=== PATIENT | female | born 1955 | race Caucasian/White ===

== ENCOUNTER 2016-09-18 17:12 | Observation (INO) ==
[2016-09-18] MEDS ORDERED: CefTRIAXone 1,000 MG in D5% in Water (Mini-Bag+) 100 ML IVPB ONE (17:21)
[2016-09-18] MEDS ORDERED: Azithromycin 500 MG in D5% in Water 250 ML IVPB ONE (17:21)
--- NOTE | 2016-09-18 17:29 | Emergency Department Note ---
Disposition Clinical Impression: Influenza Disposition: Admitted As Inpatient Condition: Fair Referrals: Alfred Cohen MD [Primary Care Provider] - Forms: ED Satisfaction Letter Time of Disposition: 17:46 (deepak obsv) Fever HPI - General Chief Complaint: ED Fever Stated Complaint: fever/cough Time Seen by Provider: 09/18/16 17:14 Source: patient Mode of arrival: wheelchair Limitations: no limitations Nursing Notes Reviewed: Yes Vital Signs Reviewed: Yes - History of Present Illness HPI Narrative: Pt sent up from Dr Yandy Cohen office after recieveing rocepin solumedrol and aerosol. Pt had a feer of 105 in the office cam down to 102 on its own states 4 -5 day history of fever chills cough congestion runny nose shortness of breath worse than usual denies of diarrhea melena hematochezia or hematemesis number stating with this recent weight gain or weight loss Pt Subjective Complaint: fever Onset (ago): day(s) (4-5) Maximum Temperature Reported: 105 F Time temperature last taken: 16:00 (at the Doctor office) Temperature Source: oral Context: sick contacts Associated symptoms: Reports: chills, myalgias, headache, nasal congestion, sore throat, cough, dyspnea. Denies: rigors, rhinorrhea, stiff neck, chest pain , abdominal pain, nausea, vomiting, diarrhea, dysuria, altered mental status, night sweats, weight loss Improves with: nothing Worsens with: nothing Treatments prior to arrival fever: antibiotics, other healthcare encounter for this problem - Related Data Home Medications Medication Instructions Recorded Confirmed Albuterol Sulfate [Proventil Hfa] 6.7 gm IH Q4-6H PRN 03/10/15 06/25/16 Alprazolam [Xanax] 1 mg PO QID 03/10/15 06/25/16 OxyCODONE/APAP 10/325 [Percocet 1 each PO Q6HR 03/10/15 06/25/16 10/325] Oxygen 1 each .ROUTE AD 03/10/15 06/25/16 Previous Rx's Medication Instructions Recorded Albuterol Neb [AccuNeb] 1.25 mg IH Q4H #40 inhsol 06/07/16 Albuterol Sulfate [Albuterol 1 - 2 puff IH Q4HR #1 hfa.aer.ad 06/07/16 Inhaler] Aspirin 325 mg PO DAILY #15 tablet 06/07/16 Omeprazole [PriLOSEC] 40 mg PO DAILY #15 cap 06/07/16 Lactobacillus [Culturelle] 1 each PO BID #6 cap.sprink 06/27/16 Levofloxacin [Levaquin] 500 mg PO DAILY #3 tablet 06/27/16 PredniSONE 10 mg PO BIDWM #6 tablet 06/27/16 Allergies Allergy/AdvReac Type Severity Reaction Status Date / Time No Known Allergies Allergy Verified 03/10/15 10:29 All systems ED: reviewed and negative except as stated. Constitutional: Reports: fever, weakness. Denies: chills, weight change Eyes: Denies: vision change ENT ED: Reports: ear pain, throat pain, congestion Cardiovascular: Denies: chest pain, palpitations Respiratory: Reports: cough, dyspnea, wheezes, sputum production Gastrointestinal: Denies: abdominal pain, nausea, vomiting Genitourinary: Denies: urgency, dysuria, frequency Musculoskeletal: Denies: back pain, neck pain Integumentary: Denies: abrasion Neurological: Denies: headache Psychiatric: Denies: anxiety Endocrine: Reports: fatigue Hematological/Lymphatic: Denies: easy bleeding Allergic/Immunologic: Denies: facial swelling Fever PMH - Past Medical History Medical history: Reports: asthma, CHF, COPD, GERD Surgical history: Reports: cancer surgery, hysterectomy Psychiatric history: Reports: anxiety, depression [employer] history: Reports: no [employer] history - Social History Smoking Status: Current every day smoker Alcohol use: Reports: none Drug use: Reports: none Physical Exam - General Limitations: no limitations General appearance: alert, in no apparent distress, anxious - Head Head exam: atraumatic, normocephalic, normal inspection - Eye Eye exam: Present: normal appearance, PERRL, EOMI - ENT ENT exam: normal exam, normal oropharynx, mucous membranes moist, TM's normal bilaterally, normal external ear exam - Neck Neck exam: Present: normal inspection, full ROM, trachea midline - Chest Chest inspection: Present: normal inspection, symmetric chest wall rise - Respiratory Respiratory exam: Present: wheezes, prolonged expiratory phase - Cardiovascular Cardiovascular exam: Present: regular rate, normal rhythm, normal heart sounds - Abdominal Exam Abdominal exam: Present: soft, Non-Tender, normal bowel sounds - Expanded Upper Extremity Exam Shoulder exam: Present: normal inspection, full ROM Arm exam: Present: normal inspection, full ROM Elbow exam: Present: normal inspection, full ROM Forearm/Wrist exam: Present: normal inspection, full ROM Hand exam: Present: normal inspection, full ROM Vascular exam: Normal: capillary refill, radial pulse - Expanded Lower Extremity Exam Hip/Pelvis exam: Present: normal inspection, full ROM Upper leg exam: Present: normal inspection, full ROM Knee exam: Present: normal inspection, full ROM Lower leg exam: Present: normal inspection, full ROM Ankle exam: Present: normal inspection, full ROM Foot/toe exam: Present: normal inspection, full ROM Neurovascular/Tendon exam: Present: normal capillary refill, normal fine/light touch. Absent: motor deficit, sensory deficit, tendon deficit - Back Exam Back exam: Present: normal inspection, full ROM. Absent: muscle spasm - Neurological Exam Neurological exam: Present: alert, oriented X3, CN II-XII intact - Psychiatric Psychiatric exam: Present: normal affect, normal mood - Skin Skin exam: Present: warm, dry, intact, normal color Course Course Narrative: Patient was seen and examined patient had an IV established was given antibiotics has a positive flu swab started on Tamiflu anticipated admission due to the fever of 105 history of COPD Vital Signs Temperature 101.8 F H 09/18/16 17:14 Pulse Rate 133 09/18/16 17:14 Respiratory Rate 18 09/18/16 17:14 Blood Pressure 106/65 09/18/16 17:14 O2 Sat by Pulse Oximetry 83 L 09/18/16 17:14 Temperature 101.8 F H 09/18/16 17:17 Pulse Rate 128 09/18/16 17:37 Respiratory Rate 19 09/18/16 17:37 Blood Pressure 94/57 09/18/16 17:37 O2 Sat by Pulse Oximetry 90 L 09/18/16 17:37 Oxygen Delivery Oxygen Delivery Nasal Cannula Fever - Differential Diagnosis Likely: fever of occult origin, community acquired pneumonia, influenza - Medical Records Medical records reviewed: Yes I reviewed the patient's medical records. - Lab Data Lab results reviewed: Yes I reviewed the patient's lab results. Result diagrams: 09/18/16 17:30 09/18/16 17:30 Lab Results 09/18/16 09/18/16 09/18/16 Range/Units 17:30 17:30 17:30 WBC 9.2 (4.3-11.1) K/mcL RBC 4.30 (3.82-4.97) M/mcL Hgb 13.6 (11.5-15.4) g/dL Hct 40.6 (35.3-44.9) % MCV 94.4 (83.0-100.0) fL MCH 31.6 (28.0-33.3) pg MCHC 33.5 (31.6-35.5) g/dL RDW 13.8 (11.5-14.5) % Plt Count 130 L (140-400) K/mcL MPV 10.4 (9.4-12.4) fL Immature Gran % 0.3 (0-4) % Seg Neutrophils % 68.3 % Lymphocytes % 18.1 % Monocytes % 12.0 % Eosinophils % 1.0 % Basophils % 0.3 % Neutrophils # 6.3 (1.6-8.9) K/mcL Lymphocytes # 1.7 (0.6-4.6) K/mcL Monocytes # 1.1 (0.0-1.3) K/mcL Eosinophils # 0.1 (0.0-0.6) K/mcL Basophils # 0.0 (0.0-0.2) K/mcL PT (9.4-12.1) Seconds INR APTT 44.1 H (26.0-36.0) Seconds Sodium 133 L (136-145) mEq/L Potassium 3.9 (3.5-4.5) mEq/L Chloride 95 L (98-109) mEq/L Carbon Dioxide 26 (19-29) mEq/L BUN 10 (7-20) mg/dL Creatinine 0.99 (0.57-1.11) mg/dL Est GFR ( Amer) > 60 (> 60) Est GFR (Non-Af Amer) 57 L (> 60) BUN/Creatinine Ratio 10 (6-26) Glucose 121 H (70-99) mg/dL Calculated Osmolality 276 L (280-300) Calcium 8.8 (8.6-10.8) mg/dL 09/18/16 Range/Units 17:30 WBC (4.3-11.1) K/mcL RBC (3.82-4.97) M/mcL Hgb (11.5-15.4) g/dL Hct (35.3-44.9) % MCV (83.0-100.0) fL MCH (28.0-33.3) pg MCHC (31.6-35.5) g/dL RDW (11.5-14.5) % Plt Count (140-400) K/mcL MPV (9.4-12.4) fL Immature Gran % (0-4) % Seg Neutrophils % % Lymphocytes % % Monocytes % % Eosinophils % % Basophils % % Neutrophils # (1.6-8.9) K/mcL Lymphocytes # (0.6-4.6) K/mcL Monocytes # (0.0-1.3) K/mcL Eosinophils # (0.0-0.6) K/mcL Basophils # (0.0-0.2) K/mcL PT 14.6 H (9.4-12.1) Seconds INR 1.3 APTT (26.0-36.0) Seconds Sodium (136-145) mEq/L Potassium (3.5-4.5) mEq/L Chloride (98-109) mEq/L Carbon Dioxide (19-29) mEq/L BUN (7-20) mg/dL Creatinine (0.57-1.11) mg/dL Est GFR ( Amer) (> 60) Est GFR (Non-Af Amer) (> 60) BUN/Creatinine Ratio (6-26) Glucose (70-99) mg/dL Calculated Osmolality (280-300) Calcium (8.6-10.8) mg/dL - Radiology Data Radiology results reviewed: Yes I reviewed the patient's radiology results. ITS Impressions Chest X-Ray 09/18/16 17:20 IMPRESSION: No acute cardiopulmonary abnormality. D/ / Regis Kasper MD / Regis Kasper MD Interpreting Provider: Regis Kasper MD Critical Care Time Critical Care Time: Yes Total Critical Care Time: 35 Attestation: Critical care performed: 35 minutes's report of the fever 105 of having left from the family physician's office presenting here with a fever of 102.9 patient 's sats were 80% when she first arrived here to the emergency room did respond very well to 2 L nasal cannula increasing her sats to 90% patient still remains slightly tachycardic at 123 blood pressure initially was 120/70-96/60 then went back up to 105/64 patient did receive fluid boluses in the event that she would be showing early signs of sepsis the patient will be admitted to rule out possibility of sepsis secondary to influenza A patient is agreeable Time is exclusive of separately billable procedures. Time includes: direct patient care, patient reassessment, coordination of patient care, interpretation of data (laboratory data, radiology data, and respiratory data), review of patient's medical records, medical consultation and documentation of patient care. Procedures included in critical care time: Procedures excluded from critical care time:
[2016-09-18] MEDS ORDERED: 0.9 % Sodium Chloride 1,000 ML IVC SCH ×2 (17:30→18:58)
[2016-09-18] MEDS ORDERED: 0.9 % Sodium Chloride 250 ML IVC ONE ×2 (17:36→18:58)
[2016-09-18 17:39] LABS: Basophils % 0.3 %; Eosinophils # 0.1 K/mcL (0.0-0.6); Hematocrit 40.6 % (35.3-44.9); Hemoglobin 13.6 g/dL (11.5-15.4); Immature Granulocytes % 0.3 % (0-4); Lymphocytes # 1.7 K/mcL (0.6-4.6); Lymphocytes % 18.1 %; Mean Corpuscular HGB Conc 33.5 g/dL (31.6-35.5); Mean Corpuscular Hemoglobin 31.6 pg (28.0-33.3); Mean Corpuscular Volume 94.4 fL (83.0-100.0); Mean Platelet Volume 10.4 fL (9.4-12.4); Monocytes # 1.1 K/mcL (0.0-1.3); Neutrophils # 6.3 K/mcL (1.6-8.9); Platelet Count 130 K/mcL (140-400); Red Cell Distribution Width 13.8 % (11.5-14.5); Segmented Neutrophils % 68.3 %
[2016-09-18 17:46] LABS: INR 1.3; Prothrombin Time 14.6 Seconds (9.4-12.1)
[2016-09-18] MEDS: 0.9 % Sodium Chloride 1,000 ML IVC SCH ×4 (17:47→22:22)
[2016-09-18 17:56] LABS: BUN/Creatinine Ratio 10 (6-26); Blood Urea Nitrogen 10 mg/dL (7-20); Calcium 8.8 mg/dL (8.6-10.8); Carbon Dioxide 26 mEq/L (19-29); Chloride 95 mEq/L (98-109); Glucose 121 mg/dL (70-99); Osmolality,Calculated 276 (280-300); Potassium 3.9 mEq/L (3.5-4.5); Sodium 133 mEq/L (136-145); eGFR For African Americans > 60 (> 60); eGFR For Non-African Americans 57 (> 60)
[2016-09-18] MEDS ORDERED: Acetaminophen 325 MG TABLET PO PRN (18:58)
[2016-09-18] MEDS ORDERED: Ondansetron 4 MG/2 ML VIAL IVP PRN (18:58)
[2016-09-18] MEDS ORDERED: Naloxone 0.4 MG/ML INJ IVP PRN (18:58)
[2016-09-18] MEDS ORDERED: Ibuprofen 400 MG TABLET PO PRN (18:58)
[2016-09-18] MEDS ORDERED: NON-FORMULARY MEDICATION 1 EACH EACH (Oxygen [Oxygen] 1 EACH) SCH (18:58)
[2016-09-18] MEDS: Albuterol 2.5 MG/3 ML NEBULIZER IH SCH ×3 (20:35→23:38)
[2016-09-18] MEDS ORDERED: 0.9 % Sodium Chloride 500 ML IV ONE (21:00)
[2016-09-18] MEDS: Lactobacillus 1 EACH CAP.SPRINK PO SCH (22:24)
[2016-09-19] MEDS: Albuterol 2.5 MG/3 ML NEBULIZER IH SCH (03:59)
[2016-09-19] MEDS: *HR* OxyCODONE/APAP 10/325 TABLET PO SCH ×2 (05:05→08:22)
[2016-09-19 05:23] LABS: Hematocrit 42.1 % (35.3-44.9); Hemoglobin 13.7 g/dL (11.5-15.4); Immature Granulocytes % 0.5 % (0-4); Lymphocytes # 0.8 K/mcL (0.6-4.6); Lymphocytes % 19.8 %; Mean Corpuscular HGB Conc 32.5 g/dL (31.6-35.5); Mean Corpuscular Hemoglobin 31.1 pg (28.0-33.3); Mean Corpuscular Volume 95.7 fL (83.0-100.0); Mean Platelet Volume 10.6 fL (9.4-12.4); Monocytes # 0.1 K/mcL (0.0-1.3); Monocytes % 3.1 %; Platelet Count 122 K/mcL (140-400); Red Cell Distribution Width 13.5 % (11.5-14.5); Segmented Neutrophils % 76.6 %
[2016-09-19 05:29] LABS: Neutrophils # 3.1 K/mcL (1.6-8.9)
[2016-09-19 05:35] LABS: INR 1.3; Prothrombin Time 13.8 Seconds (9.4-12.1)
[2016-09-19 05:37] LABS: Activated Partial Thrombo Time 44.2 Seconds (26.0-36.0)
[2016-09-19 05:47] LABS: BUN/Creatinine Ratio 12 (6-26); Blood Urea Nitrogen 11 mg/dL (7-20); Calcium 8.8 mg/dL (8.6-10.8); Carbon Dioxide 25 mEq/L (19-29); Chloride 104 mEq/L (98-109); Glucose 197 mg/dL (70-99); Magnesium 1.8 mg/dL (1.6-2.6); Osmolality,Calculated 297 (280-300); Phosphorous 4.1 mg/dL (2.3-4.7); Potassium 4.7 mEq/L (3.5-4.5); Sodium 141 mEq/L (136-145); eGFR For African Americans > 60 (> 60); eGFR For Non-African Americans > 60 (> 60)
[2016-09-19 07:58] VITALS: BP 118/70
[2016-09-19] MEDS ORDERED: PredniSONE 10 MG TABLET PO SCH (08:00)
[2016-09-19] MEDS: Lactobacillus 1 EACH CAP.SPRINK PO SCH (08:21)
[2016-09-19] MEDS: 0.9 % Sodium Chloride 1,000 ML IVC SCH ×2 (08:29→08:51)
[2016-09-19] MEDS ORDERED: Aspirin 325 MG TABLET PO SCH (09:00)
[2016-09-19] MEDS ORDERED: CefTRIAXone 1,000 MG in D5% in Water (Mini-Bag+) 100 ML IVPB SCH (09:00)
--- NOTE | 2016-09-19 09:45 | Internal Med History&Physical ---
Date of Encounter: 09/19/16 Time of Encounter: 09:20 Assessment and Plan (1) Influenza Current visit: Yes Status: Acute She has been started on Tamiflu. She states she feels improved now and actually wishes to be discharged home. Internal Medicine - H&P: HPI Chief complaint: Fever and cough Admitted From: Home Plans for Post Hospital Care: Home History of present illness: Ms. Newell is a 61 year old female who came to the emergency room from her PCP office after presenting with fever. She had been having cough with myalgias , arthralgias and fatigue over the past 2 days. She was evaluated and emergency room and found to have influenza A on nasal pharyngeal swab. She was admitted to [facility] for observation and initiation of Tamiflu. She states she feels significantly improved now and essentially back to her baseline and wishes to be discharged home. Her respiratory history is significant for having smoked since age 16 up to 2 packs per day. She had PFTs at [facility] approximately 2007 and was told she had COPD. She wears oxygen at bedtime and when necessary during the daytime. She has not had workup for DUARTE. Past Med Surg Social Fam HX - Past Medical History Medical history: asthma, CHF, COPD, GERD Psychiatric history: anxiety, depression - Past Surgical History Surgical History: cancer surgery, hysterectomy - Social History Smoking Status: Current every day smoker Smokeless Tobacco Status: No Alcohol use: none Drug use: none - Family History Daughter Adopted: No Family Member Ethnicity: Non- Living Status: Still Living Hx Family Cardiac Disorders: No Hx Family Respiratory Disorders: Yes (asthma) Hx Family Cancer: No Hx Family GI Disorders: No Hx Family Endocrine Disorder: No Hx Family Neuromuscular Disorders: No Hx Family Neurologic Disorders: No Hx Family HEENT Disorders: No Hx Family Autoimmune Disorders: No Internal Medicine - H&P: Meds Albuterol Sulfate [Proventil Hfa] 6.7 gm IH Q4-6H PRN 03/10/15 [History] Alprazolam [Xanax] 1 mg PO QID 03/10/15 [History] OxyCODONE/APAP 10/325 [Percocet 10/325] 1 each PO Q6HR 03/10/15 [History] Oxygen 1 each .ROUTE AD 03/10/15 [History] Albuterol Neb [AccuNeb] 1.25 mg IH Q4H #40 inhsol 06/07/16 [Rx] Albuterol Sulfate [Albuterol Inhaler] 1 - 2 puff IH Q4HR #1 hfa.aer.ad 06/07/16 [Rx] Aspirin 325 mg PO DAILY #15 tablet 06/07/16 [Rx] Omeprazole [PriLOSEC] 40 mg PO DAILY #15 cap 06/07/16 [Rx] Lactobacillus [Culturelle] 1 each PO BID #6 cap.sprink 06/27/16 [Rx] Levofloxacin [Levaquin] 500 mg PO DAILY #3 tablet 06/27/16 [Rx] PredniSONE 10 mg PO BIDWM #6 tablet 06/27/16 [Rx] Allergies No Known Allergies Allergy (Verified 03/10/15 10:29) All Systems PM: A 10-system review of systems was performed and is negative for pertinent findings except as documented above in the HPI. Review of systems: Review of systems from her June 2016 [facility] hospitalization were reviewed and revised as below. Gen.: Her weight has been decreased from 78.925 kg at the October 2015 [facility] hospitalization to 74.843 kg on admission now. Cardiovascular: She denies hypertension, [place], chest pain, DVT, or pulmonary embolus. Respiratory: As per history of present illness GI: She denies trouble with her liver gallbladder or exocrine pancreas. She had colon polyps diagnosed approximately 2011. : She has had hysterectomy. She has CKD stage 2-3. Endocrine: She has hyperlipidemia. She has DM 2 and her most recent hemoglobin A1c was 5.8% on 06/27/2016 She has had suppressed TSH in the past but that has resolved. Hematology/oncology: She had cervical cancer with curative hysterectomy approximately 1981. She denies other internal malignancies or anemia. Psychiatric: She has anxiety and depression. [place] skeletal: She has chronic low back pain and degenerative disc disease. She denies osteoporosis or significant arthritis - Constitutional Vitals: Temp Pulse Resp BP Pulse Ox 98.6 F 88 18 118/70 96 09/19/16 07:52 09/19/16 07:52 09/19/16 07:52 09/19/16 07:52 09/19/16 07:52 Exam: Gen.: She is a well-developed well-nourished female who appears in no severe distress at present time. HEENT: Head is atraumatic and normal cephalic. Eyes: EOMI. There is no scleral icterus. Mouth: Mucosa is moist. Neck: Supple and nontender. There is no thyromegaly or adenopathy noted. Heart: Regular without a 2/6 systolic murmur heard at the apex Lungs: No wheezes or crackles are heard. Abdomen: Soft and nontender. No masses or guarding are noted. Extremities: There is no cyanosis edema or clubbing noted. Dorsalis pedis and posterior tibial pulses are trace to 1+ palpable bilaterally. Her feet are warm to touch. Neurologic: Mental status: She is talkative and a good historian. Cranial nerves: Smile is symmetric. Forehead wrinkles bilaterally. Tongue protrudes midline. EOMI. Motor: There is no pronator drift. Cerebellar: Finger to nose is intact bilaterally. Skin: Warm and dry Internal Med - H&P Results - Labs CBC & Chem 7: 09/19/16 04:19 09/19/16 04:19 Labs: Short CBC 09/19/16 Range/Units 04:19 WBC 4.1 L D (4.3-11.1) K/mcL Hgb 13.7 (11.5-15.4) g/dL Hct 42.1 (35.3-44.9) % Plt Count 122 L (140-400) K/mcL Neutrophils # 3.1 (1.6-8.9) K/mcL BMP 09/19/16 04:19 Sodium 141 D Potassium 4.7 H Chloride 104 Carbon Dioxide 25 BUN 11 Creatinine 0.90 Glucose 197 H Calcium 8.8
--- NOTE | 2016-09-19 09:55 | Discharge Summary ---
Date of Encounter: 09/19/16 Time of Encounter: 09:20 - Discharge Diagnosis (1) Influenza Priority: Primary Status: Acute - Discharge Medications Prescriptions: Oseltamivir [Tamiflu] 75 mg PO BID #8 capsule Home Medications: Albuterol Sulfate [Proventil Hfa] 6.7 gm IH Q4-6H PRN 03/10/15 [History] Alprazolam [Xanax] 1 mg PO QID 03/10/15 [History] OxyCODONE/APAP 10/325 [Percocet 10/325] 1 each PO Q6HR 03/10/15 [History] Oxygen 1 each .ROUTE AD 03/10/15 [History] Albuterol Neb [AccuNeb] 1.25 mg IH Q4H #40 inhsol 06/07/16 [Rx] Albuterol Sulfate [Albuterol Inhaler] 1 - 2 puff IH Q4HR #1 hfa.aer.ad 06/07/16 [Rx] Aspirin 325 mg PO DAILY #15 tablet 06/07/16 [Rx] Omeprazole [PriLOSEC] 40 mg PO DAILY #15 cap 06/07/16 [Rx] Oseltamivir [Tamiflu] 75 mg PO BID #8 capsule 09/19/16 [Rx] Allergies/Adverse Reactions: Allergies No Known Allergies Allergy (Verified 03/10/15 10:29) Date of admission: 09/18/16 18:16 Primary care physician: Alfred Cohen MD - Patient Status Disposition: Home, Self-Care Condition: Fair Functional capacity at discharge: independent ambulation Overall status at discharge: patient is progressing back to baseline - Discharge Instructions Follow Up With: Alfred Cohen MD [Primary Care Provider] - 1 week - Diet and Activity Activity: resume usual activities as tolerated, wear oxygen at all times Diet: advance to your usual diet Hospital course: Ms. Newell is a 61 year old female who came to the emergency room from her PCP office after presenting with fever. She had been having cough with myalgias , arthralgias and fatigue over the past 2 days. She was evaluated and emergency room and found to have influenza A on nasal pharyngeal swab. She was admitted to [facility] for observation and initiation of Tamiflu. Initial orders were written by the emergency room physician. I saw her September 19 performed a history physical and discharge. She was started on Tamiflu by the emergency room physician. Chest x-ray report showed no acute cardiopulmonary abnormality. She was also ordered Rocephin and Zithromax by emergency room but I did not feel she had pneumonia so antibiotics will not be continued at discharge. When I saw her the fever had resolved and she felt improved and essentially back to her baseline. She was to be discharged home which I felt was reasonable. I encouraged her to become a nonsmoker. She will continue Tamiflu to complete a 5 day course. She will follow with her primary care provider Dr. Cohen within 1 week. - Time Spent with Patient Total time spent providing and/or coordinating discharge services: - Constitutional Vitals: Temp Pulse Resp BP Pulse Ox 98.6 F 88 18 118/70 96 09/19/16 07:52 09/19/16 07:52 09/19/16 07:52 09/19/16 07:52 09/19/16 07:52
[2016-09-19] MEDS ORDERED: Azithromycin 500 MG in D5% in Water 250 ML IVPB SCH (12:00)
== END 2016-09-19 11:55 | disposition home or self-care (01) ==
LOC: INPPIK 17:12 → EMEROOPIK 17:12 → INPPIK 19:06
PROVIDERS: ADMIT Internal Medicine; ATTEND Internal Medicine

== ENCOUNTER 2017-03-17 22:14 | Observation (INO) ==
[2017-03-17] MEDS ORDERED: methylPREDNISolone 125 MG/2 ML VIAL IVP ONE (22:38)
[2017-03-17] MEDS ORDERED: Ipratropium/Albuterol Neb 3 ML IH ONE (22:38)
[2017-03-17] MEDS ORDERED: Albuterol 2.5 MG/3 ML NEBULIZER IH ONE (22:38)
--- NOTE | 2017-03-17 22:42 | Emergency Department Note ---
Disposition Clinical Impression: COPD exacerbation Disposition: Admitted As Inpatient Condition: Good Time of Disposition: 23:54 SOB HPI - General Chief Complaint: ED Shortness of Breath/Dyspnea Stated Complaint: efren worse than normal Time Seen by Provider: 03/17/17 22:30 Source: patient Mode of arrival: ambulatory Limitations: no limitations Nursing Notes Reviewed: Yes Vital Signs Reviewed: Yes - History of Present Illness 61-year-old white female with severe COPD presents with increased difficulty breathing since 3 PM Wednesday. She has had difficulty on and off for the last 10 days. She was seen here on , and 03/09 by me. She has been on steroids. She has been intermittently better but became worse today. She has a nonproductive cough, no worse than usual. No chest pain. No fever. She is had decreased appetite. She states she is not sleeping well last few days. Pt Subjective Complaint: shortness of breath Onset (ago): day(s) (10) Context: recent illness Severity: moderate Consistency/Duration: constant Improves with: oxygen, rest, bronchodilators Worsens with: exertion, movement, coughing Known history of: COPD Associated symptoms: Reports: denies other symptoms Treatment prior to arrival: oxygen, bronchodilator Cough present: Yes Cough Description: Involuntary Cough Frequency: Intermittent Sputum production: No Sputum Amount: None - Related Data Home oxygen amount: 2 liters Home Medications Medication Instructions Recorded Confirmed Alprazolam [Xanax] 1 mg PO TID 03/10/15 03/18/17 OxyCODONE/APAP 10/325 [Percocet 1 each PO Q4-6H PRN 03/10/15 03/18/17 10/325] Oxygen 1 each .ROUTE AD 03/10/15 03/18/17 Alprazolam [Xanax] 2 mg PO HS 03/18/17 03/18/17 Ipratropium/Albuterol Neb [Duoneb] 3 ml IH Q4H 03/18/17 03/18/17 Ventolin Hfa 03/18/17 Previous Rx's Medication Instructions Recorded Aspirin 325 mg PO DAILY #15 tablet 06/07/16 Omeprazole [PriLOSEC] 40 mg PO DAILY #15 cap 06/07/16 Allergies Allergy/AdvReac Type Severity Reaction Status Date / Time No Known Allergies Allergy Verified 03/10/15 10:29 All systems ED: reviewed and negative except as stated. Constitutional: Denies: fever, chills Cardiovascular: Denies: chest pain Respiratory: Reports: cough, dyspnea, wheezes Gastrointestinal: Reports: other (Decreased appetite). Denies: abdominal pain, nausea, vomiting Musculoskeletal: Denies: back pain Psychiatric: Reports: anxiety Past Medical History - Past Medical History Medical history: Reports: asthma, CHF, COPD, GERD Surgical history: Reports: cancer surgery, hysterectomy Psychiatric history: Reports: anxiety, depression CHEMICAL WASTE MANAGEMENT TECHNICIAN history: Reports: no CHEMICAL WASTE MANAGEMENT TECHNICIAN history - Social History Smoking Status: Current every day smoker Smokeless Tobacco Status: No Alcohol use: Reports: none Drug use: Reports: none Physical Exam - General Limitations: no limitations General appearance: alert, in no apparent distress - Head Head exam: atraumatic, normocephalic - Eye Eye exam: Present: PERRL, EOMI. Absent: scleral icterus, conjunctival injection - ENT ENT exam: normal oropharynx, mucous membranes moist, TM's normal bilaterally - Neck Neck exam: Present: normal inspection, full ROM, trachea midline. Absent: lymphadenopathy - Respiratory Respiratory exam: Present: respiratory distress, wheezes (Moderate moderate bilateral expiratory), accessory muscle use, prolonged expiratory phase, other ( Decreased breath sounds bilaterally) - Cardiovascular Cardiovascular exam: Present: regular rate, normal rhythm, normal heart sounds - Abdominal Exam Abdominal exam: Present: soft, Non-Tender, normal bowel sounds. Absent: organomegaly, mass - Extremities Exam Extremities exam: Present: normal inspection, normal capillary refill. Absent: pedal edema - Neurological Exam Neurological exam: Present: alert, oriented X3, normal gait - Psychiatric Psychiatric exam: Present: normal affect, normal mood - Skin Skin exam: Present: warm, dry, intact. Absent: cyanosis, diaphoresis Course - Reevaluation(s) Reevaluation #1: Some improvement. She has felt outpatient therapy. She has been on optimal steroid doses and nebulizers. She will be admitted. I spoke with Dr. Williamson. He has accepted the patient for admission. Time: 23:53 Vital Signs Temperature 99.2 F 03/17/17 22:23 Pulse Rate 124 03/17/17 22:23 Respiratory Rate 24 03/17/17 22:23 Blood Pressure 119/77 03/17/17 22:23 O2 Sat by Pulse Oximetry 95 03/17/17 22:23 Temperature 97.7 F 03/18/17 01:21 Pulse Rate 105 03/18/17 01:21 Respiratory Rate 20 03/18/17 01:21 Blood Pressure 110/70 03/18/17 01:21 O2 Sat by Pulse Oximetry 90 03/18/17 01:47 Oxygen Delivery Oxygen Delivery Nasal Cannula Shortness of Breath/Dyspnea - [facility] Narrative Medical decision making narrative: Clinically she has a COPD exacerbation. There is no evidence of congestive heart failure. She does have some atelectasis or minimal infiltrate. She will be covered with antibiotics. We will continue steroids and not frequent nebulizers. - Differential Diagnosis Likely: acute exacerbation of chronic obstructive airways disease, congestive heart failure, pneumonia, pulmonary embolism, pneumothorax, arrhythmia - Lab Data Lab results reviewed: Yes I reviewed the patient's lab results. Result diagrams: 03/17/17 22:57 03/17/17 22:57 Lab Results 03/17/17 03/17/17 03/17/17 Range/Units 22:52 22:57 22:57 WBC 13.9 H (4.3-11.1) K/mcL RBC 4.33 (3.82-4.97) M/mcL Hgb 14.1 (11.5-15.4) g/dL Hct 41.0 (35.3-44.9) % MCV 94.7 (83.0-100.0) fL MCH 32.6 (28.0-33.3) pg MCHC 34.4 (31.6-35.5) g/dL RDW 13.2 (11.5-14.5) % Plt Count 189 (140-400) K/mcL MPV 9.4 (9.4-12.4) fL Immature Gran % 0.5 (0-4) % Seg Neutrophils % 66.7 % Lymphocytes % 21.6 % Monocytes % 9.9 % Eosinophils % 1.2 % Basophils % 0.1 % Neutrophils # 9.3 H (1.6-8.9) K/mcL Lymphocytes # 3.0 (0.6-4.6) K/mcL Monocytes # 1.4 H (0.0-1.3) K/mcL Eosinophils # 0.2 (0.0-0.6) K/mcL Basophils # 0.0 (0.0-0.2) K/mcL ABG pH 7.38 (7.32-7.45) pH Units ABG pCO2 50 H (35-45) mmHg ABG pO2 64 L (85-104) mmHg ABG HCO3 30.0 H (21-27) mEQ/L ABG Total CO2 31.5 H (20-26) mEq/L ABG O2 Saturation 91 L (95-98) % ABG Base Excess 4.9 H (-2.0 to 3.0) mEq/L Liter Flow 1.5 L/MIN Blood Gas Modality NC Sodium 140 (136-145) mEq/L Potassium 3.2 L (3.5-4.5) mEq/L Chloride 99 (98-109) mEq/L Carbon Dioxide 27 (19-29) mEq/L BUN 15 (7-20) mg/dL Creatinine 1.00 (0.57-1.11) mg/dL Est GFR ( Amer) > 60 (> 60) Est GFR (Non-Af Amer) 57 L (> 60) BUN/Creatinine Ratio 15 (6-26) Glucose 183 H (70-99) mg/dL Calculated Osmolality 296 (280-300) Calcium 9.7 (8.6-10.8) mg/dL Troponin I (0-0.03) ng/mL B-Natriuretic Peptide (0-100) pg/mL 03/17/17 03/17/17 Range/Units 22:57 22:57 WBC (4.3-11.1) K/mcL RBC (3.82-4.97) M/mcL Hgb (11.5-15.4) g/dL Hct (35.3-44.9) % MCV (83.0-100.0) fL MCH (28.0-33.3) pg MCHC (31.6-35.5) g/dL RDW (11.5-14.5) % Plt Count (140-400) K/mcL MPV (9.4-12.4) fL Immature Gran % (0-4) % Seg Neutrophils % % Lymphocytes % % Monocytes % % Eosinophils % % Basophils % % Neutrophils # (1.6-8.9) K/mcL Lymphocytes # (0.6-4.6) K/mcL Monocytes # (0.0-1.3) K/mcL Eosinophils # (0.0-0.6) K/mcL Basophils # (0.0-0.2) K/mcL ABG pH (7.32-7.45) pH Units ABG pCO2 (35-45) mmHg ABG pO2 (85-104) mmHg ABG HCO3 (21-27) mEQ/L ABG Total CO2 (20-26) mEq/L ABG O2 Saturation (95-98) % ABG Base Excess (-2.0 to 3.0) mEq/L Liter Flow L/MIN Blood Gas Modality Sodium (136-145) mEq/L Potassium (3.5-4.5) mEq/L Chloride (98-109) mEq/L Carbon Dioxide (19-29) mEq/L BUN (7-20) mg/dL Creatinine (0.57-1.11) mg/dL Est GFR ( Amer) (> 60) Est GFR (Non-Af Amer) (> 60) BUN/Creatinine Ratio (6-26) Glucose (70-99) mg/dL Calculated Osmolality (280-300) Calcium (8.6-10.8) mg/dL Troponin I 0.00 (0-0.03) ng/mL B-Natriuretic Peptide 71 (0-100) pg/mL - Radiology Data Radiology results reviewed: Yes I reviewed the patient's radiology results. Impressions Chest X-Ray 03/17/17 22:38 IMPRESSION: Minimal right infrahilar opacity, likely atelectasis versus consolidation. Otherwise no acute findings. D/ / Royce Parra MD / Royce Parra MD Interpreting Provider: Royce Parra MD - EKG Data EKG attestation: Yes I reviewed and interpreted this EKG. EKG results narrative: Sinus tachycardia, rate of 120, nonspecific ST-T changes. Rhythm strip shows sinus tachycardia with a rate of 120, MO interval 149 ms, QRS 98 ms with no other ectopy as interpreted by me.
[2017-03-17 23:03] LABS: Basophils % 0.1 %; Eosinophils # 0.2 K/mcL (0.0-0.6); Eosinophils % 1.2 %; Hemoglobin 14.1 g/dL (11.5-15.4); Immature Granulocytes % 0.5 % (0-4); Lymphocytes % 21.6 %; Mean Corpuscular HGB Conc 34.4 g/dL (31.6-35.5); Mean Corpuscular Hemoglobin 32.6 pg (28.0-33.3); Mean Corpuscular Volume 94.7 fL (83.0-100.0); Mean Platelet Volume 9.4 fL (9.4-12.4); Monocytes # 1.4 K/mcL (0.0-1.3); Monocytes % 9.9 %; Neutrophils # 9.3 K/mcL (1.6-8.9); Platelet Count 189 K/mcL (140-400); Red Blood Count 4.33 M/mcL (3.82-4.97); Red Cell Distribution Width 13.2 % (11.5-14.5); Segmented Neutrophils % 66.7 %
[2017-03-17 23:08] LABS: ABG Base Excess 4.9 mEq/L (-2.0 to 3.0); ABG Oxygen Saturation 91 % (95-98); ABG PCO2 50 mmHg (35-45); ABG PH 7.38 pH Units (7.32-7.45); ABG PO2 64 mmHg (85-104); ABG TCO2 31.5 mEq/L (20-26); Blood Gas Liter Flow 1.5 L/MIN
[2017-03-17 23:17] LABS: BUN/Creatinine Ratio 15 (6-26); Blood Urea Nitrogen 15 mg/dL (7-20); Calcium 9.7 mg/dL (8.6-10.8); Carbon Dioxide 27 mEq/L (19-29); Chloride 99 mEq/L (98-109); Glucose 183 mg/dL (70-99); Osmolality,Calculated 296 (280-300); Potassium 3.2 mEq/L (3.5-4.5); Sodium 140 mEq/L (136-145); eGFR For African Americans > 60 (> 60); eGFR For Non-African Americans 57 (> 60)
[2017-03-18] MEDS ORDERED: Naloxone 0.4 MG/ML INJ IVP PRN (00:38)
[2017-03-18] MEDS ORDERED: MethylPREDNISolone 40 MG/ML VIAL IVP SCH (00:38)
[2017-03-18] MEDS: *HR* OxyCODONE/APAP 10/325 TABLET PO PRN ×4 (01:34→20:41)
[2017-03-18] MEDS: Ipratropium/Albuterol Neb 3 ML IH SCH ×2 (03:49→09:03)
[2017-03-18] MEDS ORDERED: methylPREDNISolone 125 MG/2 ML VIAL IVP SCH (08:00)
[2017-03-18] MEDS: ALPRAZolam 1 MG TABLET PO SCH ×3 (08:30→20:41)
[2017-03-18] MEDS: Aspirin 325 MG TABLET PO SCH (08:30)
[2017-03-18] MEDS ORDERED: Levofloxacin 500 MG/100 ML 500 MG/100 ML BAG IVPB SCH (09:00)
--- NOTE | 2017-03-18 10:59 | Internal Med History&Physical ---
Date of Encounter: 03/18/17 Time of Encounter: 10:10 Assessment and Plan (1) Acute exacerbation of chronic obstructive airways disease Current visit: No Status: Acute She has been started on Levaquin. Will add lactobacillus. (2) CKD (chronic kidney disease) stage 3, GFR 30-59 ml/min Current visit: No Status: Chronic Will monitor renal indices periodically. (3) DM type 2 (diabetes mellitus, type 2) Current visit: No Status: Chronic Probably diet controlled. Will check hemoglobin A1c in a.m. 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 We will recheck UA Qualifiers: Hematuria type: unspecified type Qualified Code(s): R31.9 - Hematuria, unspecified (5) Hypokalemia Current visit: Yes Status: Acute Etiology not obvious. Will give supplement potassium and recheck labs in a.m. (6) Lung nodule Current visit: Yes Status: Acute Will order chest CT to follow-up. Internal Medicine - H&P: HPI Chief complaint: Dyspnea Admitted From: Home Plans for Post Hospital Care: Home History of present illness: Ms. Newell is a 61 year old female who came to emergency room stating she had progressive dyspnea over the preceding 3 days. She states there was cough productive of yellow phlegm. She came to emergency room twice and received treatment but remained dyspneic so came again to ER the evening of March 17. She was felt to have exacerbation of COPD and admitted to [facility] floor for ongoing care needs. Her respiratory history is significant for having smoked since age 16 up to 2 packs per day. She had PFTs at [facility] approximately 2007 and was told she had COPD. She wears oxygen at bedtime and when necessary during the daytime. She has not had workup for [facility]. She had a 4 mm right upper lobe nodule seen on chest CT October 2015. Past Med Surg Social Fam HX - Past Medical History Medical history: asthma, CHF, COPD, GERD Psychiatric history: anxiety, depression - Past Surgical History Surgical History: cancer surgery, hysterectomy - Social History Smoking Status: Current every day smoker Smokeless Tobacco Status: No Alcohol use: none Drug use: none - Family History Daughter Adopted: No Family Member Ethnicity: Non- Living Status: Still Living Hx Family Cardiac Disorders: No Hx Family Respiratory Disorders: Yes (asthma) Hx Family Cancer: No Hx Family GI Disorders: No Hx Family Endocrine Disorder: No Hx Family Neuromuscular Disorders: No Hx Family Neurologic Disorders: No Hx Family HEENT Disorders: No Hx Family Autoimmune Disorders: No Internal Medicine - H&P: Meds Alprazolam [Xanax] 1 mg PO TID 03/10/15 [History] OxyCODONE/APAP 10/325 [Percocet 10/325] 1 each PO Q4-6H PRN 03/10/15 [History] Oxygen 1 each .ROUTE AD 03/10/15 [History] Aspirin 325 mg PO DAILY #15 tablet 06/07/16 [Rx] Omeprazole [PriLOSEC] 40 mg PO DAILY #15 cap 06/07/16 [Rx] Alprazolam [Xanax] 2 mg PO HS 03/18/17 [History] Ipratropium/Albuterol Neb [Duoneb] 3 ml IH Q4H 03/18/17 [History] Ventolin Hfa 03/18/17 [History] 3 Allergy/AdvReac Type Severity Reaction Status Date / Time No Known Allergies Allergy Verified 03/10/15 10:29 All Systems PM: A 10-system review of systems was performed and is negative for pertinent findings except as documented above in the HPI. Review of systems: Gen.: Her weight has decreased from 73.845 kg on 09/19/2016 to 68.946 kg on admission now. Cardiovascular: She denies hypertension, ME, chest pain, DVT, or pulmonary embolus. Respiratory: As per history of present illness GI: She denies disorders of her liver gallbladder or exocrine pancreas. She had colon polyps diagnosed approximately 2011. : She has had hysterectomy. 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 Endocrine: She has hyperlipidemia. She has DM 2 and her most recent hemoglobin A1c was 5.8% on 06/27/2016 She has had suppressed TSH in the past but that has resolved. Hematology/oncology: She had cervical cancer with curative hysterectomy approximately 1981. She denies other internal malignancies or anemia. Psychiatric: She has anxiety and depression. [place] skeletal: She has chronic low back pain and degenerative disc disease. She denies osteoporosis or significant arthritis - Constitutional Vitals: Temp Pulse Resp BP Pulse Ox 97.7 F 92 16 109/68 93 03/18/17 10:28 03/18/17 10:28 03/18/17 10:28 03/18/17 10:28 03/18/17 10:28 Exam: Gen.: She is a well developed well-nourished female who appears slightly dyspneic at present time HEENT: Head is atraumatic and normocephalic. Eyes: EOMI. There is no scleral icterus. Mouth: Mucosa is moist. Neck: Supple and nontender. There is no thyromegaly or adenopathy noted. Heart: Regular without murmurs gallops or ectopics Lungs: No wheezes or crackles are heard. She has diminished breath sounds diffusely. Abdomen: Soft and nontender. No masses or guarding are noted. Extremities: There is no cyanosis edema or clubbing noted. Dorsalis pedis and posterior tibial pulses are 1-2 over 2 bilaterally. Neurologic: Mental status: She is talkative and a good historian. Cranial nerves: Smile is symmetric. Forehead wrinkles bilaterally. Tongue protrudes midline. EOMI. Motor: There is no pronator drift. Cerebellar: Finger to nose is intact bilaterally. Skin: Warm and dry. She has multiple shallow ulcerative areas on her forearms bilaterally. Internal Med - H&P Results - Labs CBC & Chem 7: 03/17/17 22:57 03/17/17 22:57
[2017-03-18] MEDS: Budesonide/Formoterol 160/4.5 MDI IH SCH ×2 (12:43→22:41)
[2017-03-18] MEDS: Tiotropium 18 MCG inhalation IH SCH (12:43)
--- NOTE | 2017-03-18 15:31 | Electrocardiograph Report ---
[address] [place], [place] [address] Test Date: 2017-03-17 Pat Name: Anthony Newell Department: [id number] Room: [facility] Gender: F Information Security Specialist: : [id number] Requested By: Parish Gomes Order Number: [id number] Reading MD: Gildardo Montez MD Measurements Intervals [place] Rate: 120 P: 81 GA: 149 QRS: 62 QRSD: 98 T: 78 QT: 425 QTc: 496 Interpretive Statements SINUS TACHYCARDIA Electronically Signed On 03-18-2017 15:30:11 EDT by Gildardo Montez MD
[2017-03-18 16:34] LABS: Bilirubin,Urine Negative (Negative); Blood,Urine Negative (Negative); Clarity,Urine Clear (Clear); Color,Urine Yellow (Yellow); Glucose,Urine (UA) >=1000 mg/dL (Normal); Ketones,Urine Negative (Negative); Leukocyte Esterase,Urine Negative (Negative); Nitrite,Urine Negative (Negative); Protein,Urine Negative (Neg-Trace); Urobilinogen,Urine Normal (Normal)
[2017-03-18] MEDS: Albuterol 2.5 MG/3 ML NEBULIZER IH PRN ×2 (16:49→22:42)
[2017-03-18] MEDS: Lactobacillus 1 EACH CAP.SPRINK PO SCH (20:41)
[2017-03-19] MEDS: Albuterol 2.5 MG/3 ML NEBULIZER IH PRN ×2 (04:26→10:42)
[2017-03-19] MEDS: *HR* OxyCODONE/APAP 10/325 TABLET PO PRN ×2 (04:37→10:14)
[2017-03-19 06:31] LABS: Basophils % 0.2 %; Hematocrit 37.2 % (35.3-44.9); Hemoglobin 12.4 g/dL (11.5-15.4); Lymphocytes # 0.5 K/mcL (0.6-4.6); Lymphocytes % 3.7 %; Mean Corpuscular HGB Conc 33.3 g/dL (31.6-35.5); Mean Corpuscular Hemoglobin 32.3 pg (28.0-33.3); Mean Corpuscular Volume 96.9 fL (83.0-100.0); Mean Platelet Volume 10.5 fL (9.4-12.4); Monocytes # 0.6 K/mcL (0.0-1.3); Monocytes % 5.2 %; Neutrophils # 11.2 K/mcL (1.6-8.9); Platelet Count 144 K/mcL (140-400); Red Blood Count 3.84 M/mcL (3.82-4.97); Red Cell Distribution Width 13.3 % (11.5-14.5); Segmented Neutrophils % 89.9 %
[2017-03-19 06:49] LABS: Calcium 9.7 mg/dL (8.6-10.8)
[2017-03-19 07:01] VITALS: BP 113/70
[2017-03-19] MEDS: Lactobacillus 1 EACH CAP.SPRINK PO SCH (09:14)
[2017-03-19] MEDS: Aspirin 325 MG TABLET PO SCH (09:14)
[2017-03-19] MEDS: ALPRAZolam 1 MG TABLET PO SCH (09:14)
[2017-03-19 09:22] LABS: Hemoglobin A1C 6.8 %
--- NOTE | 2017-03-19 09:27 | Discharge Summary ---
Date of Encounter: 03/19/17 Time of Encounter: 09:15 - Discharge Diagnosis (1) Acute exacerbation of chronic obstructive airways disease Priority: Primary Status: Acute (2) CKD (chronic kidney disease) stage 3, GFR 30-59 ml/min Priority: Secondary Status: Chronic (3) DM type 2 (diabetes mellitus, type 2) Priority: Secondary Status: Chronic Qualifiers: Diabetes mellitus complication status: with kidney complications Diabetes mellitus complication detail: with chronic kidney disease Diabetes mellitus senior living insulin use: without termite technician use Chronic kidney disease stage: stage 3 (moderate) Qualified Code(s): E11.22 - Type 2 diabetes mellitus with diabetic chronic kidney disease; N18.3 - Chronic kidney disease, stage 3 ( moderate) (4) Hypokalemia Priority: Secondary Status: Resolved (5) Lung nodule Priority: Secondary Status: Acute - Discharge Medications Prescriptions: Lactobacillus [Culturelle] 1 each PO BID #6 cap.sprink Levofloxacin [Levaquin] 500 mg PO DAILY #3 tablet Home Medications: Alprazolam [Xanax] 1 mg PO TID 03/10/15 [History] OxyCODONE/APAP 10/325 [Percocet 10/325] 1 each PO Q4-6H PRN 03/10/15 [History] Oxygen 1 each .ROUTE AD 03/10/15 [History] Aspirin 325 mg PO DAILY #15 tablet 06/07/16 [Rx] Omeprazole [PriLOSEC] 40 mg PO DAILY #15 cap 06/07/16 [Rx] Alprazolam [Xanax] 2 mg PO HS 03/18/17 [History] Ipratropium/Albuterol Neb [Duoneb] 3 ml IH Q4H 03/18/17 [History] Ventolin Hfa 03/18/17 [History] Lactobacillus [Culturelle] 1 each PO BID #6 cap.sprink 03/19/17 [Rx] Levofloxacin [Levaquin] 500 mg PO DAILY #3 tablet 03/19/17 [Rx] Allergies/Adverse Reactions: 3 Allergy/AdvReac Type Severity Reaction Status Date / Time No Known Allergies Allergy Verified 03/10/15 10:29 Procedures/tests Complete & Pending: Procedures Performed prior 72 hours Category Date Time Status CT chest wo con [CT] Routine Cat Scan 03/18/17 10:49 Completed Date of admission: 03/18/17 00:33 Primary care physician: Alfred Cohen M.D. - Patient Status Disposition: Home, Self-Care Condition: Good Overall status at discharge: patient is progressing back to baseline - Discharge Instructions Follow Up With: Alfred Cohen MD [Partnered Physician] - 1 week - Diet and Activity Activity: resume usual activities as tolerated Diet: advance to your usual diet Hospital course: Ms. Newell is a 61 year old female who came to emergency room stating she had progressive dyspnea over the preceding 3 days. She states there was cough productive of yellow phlegm. She came to emergency room twice and received treatment but remained dyspneic so came again to ER the evening of March 17. She was felt to have exacerbation of COPD and admitted to [facility] for ongoing care needs. Initial orders were written by the emergency room physician. I saw her on March 18 and performed a history and physical. She was started on IV Levaquin. Lactobacillus was also given. She had clinical improvement with WBC decreasing to 12.4 by the following day. There was left shift present with segs 89.9%. She remained generally afebrile during her hospital stay. Chest CT was done to follow-up on nodules seen on previous CT October 2015. There was interval development of numerous groundglass micronodules primarily throughout the right lung but also in the lingula. There is a more cavitary nodule in the right lower lobe measuring 10 mm. Follow-up chest CT in 3-6 months was suggested. I will let her PCP coordinate this. She was given supplemental potassium and hypokalemia resolved. UA showed no evidence of hematuria. When I saw her on March 19 she felt stable for discharge home. She will follow with her PCP Dr. Cohen within one week. She will continue with antibiotic and probiotic for 3 additional days after discharge. - Time Spent with Patient Total time spent providing and/or coordinating discharge services: - Constitutional Vitals: Temp Pulse Resp BP Pulse Ox 98.4 F 96 18 113/70 96 03/19/17 06:57 03/19/17 06:57 03/19/17 06:57 03/19/17 06:57 03/19/17 06:57
[2017-03-19] MEDS: Budesonide/Formoterol 160/4.5 MDI IH SCH (10:42)
[2017-03-19] MEDS: Tiotropium 18 MCG inhalation IH SCH (10:47)
== END 2017-03-19 11:25 | disposition home or self-care (01) ==
LOC: INPPIK 22:14 → EMEROOPIK 22:14 → INPPIK 03-18 01:12
PROVIDERS: ADMIT Internal Medicine; ATTEND Internal Medicine

== ENCOUNTER 2017-05-02 22:45 | Observation (INO) ==
[2017-05-02] MEDS ORDERED: Bumetanide 1 MG/4 ML VIAL IVP ONE (23:11)
[2017-05-02] MEDS ORDERED: Ipratropium/Albuterol Neb 3 ML IH ONE (23:11)
[2017-05-02] MEDS ORDERED: methylPREDNISolone 125 MG/2 ML VIAL IVP ONE (23:11)
--- NOTE | 2017-05-02 23:13 | Emergency Department Note ---
Disposition Clinical Impression: COPD (chronic obstructive pulmonary disease), Peripheral edema Disposition: Admitted As Inpatient Condition: Good SOB HPI - General Chief Complaint: ED Shortness of Breath/Dyspnea Stated Complaint: difficulty breathing Time Seen by Provider: 05/02/17 22:55 Source: patient Mode of arrival: ambulatory Limitations: no limitations Nursing Notes Reviewed: Yes Vital Signs Reviewed: Yes - History of Present Illness She presents to the emergency room increasing shortness of breath swelling and edema in the legs getting worse over the last couple days she typically has exacerbation COPD which is treated with just discharged steroids patient that at this time states that she has had 3-4+ edema lower extremities and is short of breath. And ambulate she denies fever chills lightheadedness dizziness A diarrhea melena hematochezia or hematemesis numbness tingling to his recent weight gain or weight loss Pt Subjective Complaint: shortness of breath Onset (ago): day(s) Context: other (frequest reoccurence) Severity: moderate, severe Consistency/Duration: constant, gradually worsening Improves with: bronchodilators Worsens with: exertion, movement Known history of: COPD Associated symptoms: Reports: cough, wheezing, orthopnea, palpitations. Denies : chest pain, pain with inspiration, fever, sputum production, lower extremity pain, polyuria, polydipsia, parasthesias, hemoptysis, diaphoresis, nausea/ vomiting, syncope, abdominal pain, rash, sense of impending doom Treatment prior to arrival: bronchodilator Cough present: Yes Cough Description: Involuntary, Weak, Bronchospastic, Wheezy Sputum production: No - Related Data Home Medications Medication Instructions Recorded Confirmed Alprazolam [Xanax] 1 mg PO TID 03/10/15 05/02/17 OxyCODONE/APAP 10/325 [Percocet 1 each PO Q4-6H PRN 03/10/15 05/02/17 10/325] Oxygen 1 each .ROUTE AD 03/10/15 05/02/17 Alprazolam [Xanax] 2 mg PO HS 03/18/17 05/02/17 Albuterol Neb [Proventil Neb] 2.5 mg IH Q2H 05/02/17 05/02/17 Budesonide/Formoterol 160/4.5 2 puff IH DAILY 05/02/17 05/02/17 [Symbicort 160/4.5] Tiotropium [Spiriva] 18 mcg IH DAILY 05/02/17 05/02/17 Previous Rx's Medication Instructions Recorded Aspirin 325 mg PO DAILY #15 tablet 06/07/16 Omeprazole [PriLOSEC] 40 mg PO DAILY #15 cap 06/07/16 Allergies Allergy/AdvReac Type Severity Reaction Status Date / Time No Known Allergies Allergy Verified 05/02/17 22:49 All systems ED: reviewed and negative except as stated. Review of Systems: As Per HPI Constitutional: Reports: weakness. Denies: fever Eyes: Denies: eye pain, eye discharge ENT ED: Denies: ear pain, throat pain Cardiovascular: Denies: chest pain, palpitations Respiratory: Reports: wheezes. Denies: cough, dyspnea Gastrointestinal: Denies: abdominal pain, nausea, vomiting Genitourinary: Denies: urgency, dysuria Musculoskeletal: Denies: back pain, neck pain Integumentary: Denies: rash, abrasion Neurological: Reports: weakness. Denies: headache Psychiatric: Denies: anxiety, depression Endocrine: Reports: fatigue. Denies: heat or cold intolerance Hematological/Lymphatic: Denies: easy bleeding Allergic/Immunologic: Denies: facial swelling Past Medical History - Past Medical History Attestation: Yes The following information was validated with the patient. Source: patient, old records reviewed, nursing notes reviewed Medical history: Reports: asthma, CHF, COPD, GERD, renal disease Surgical history: Reports: cancer surgery, hysterectomy Psychiatric history: Reports: anxiety, depression DUMPMAN history: Reports: no DUMPMAN history - Social History Smoking Status: Current every day smoker Smokeless Tobacco Status: No Alcohol use: Reports: none Drug use: Reports: none Physical Exam - General Limitations: no limitations General appearance: alert, in no apparent distress, anxious - Head Head exam: atraumatic, normocephalic, normal inspection - Eye Eye exam: Present: normal appearance, PERRL, EOMI - ENT ENT exam: normal exam, normal oropharynx, mucous membranes moist, TM's normal bilaterally, normal external ear exam - Neck Neck exam: Present: normal inspection, full ROM, trachea midline - Chest Chest inspection: Present: normal inspection, symmetric chest wall rise - Respiratory Respiratory exam: Present: normal lung sounds bilaterally, wheezes, prolonged expiratory phase - Cardiovascular Cardiovascular exam: Present: regular rate, normal rhythm - Abdominal Exam Abdominal exam: Present: soft, Non-Tender, normal bowel sounds - Expanded Upper Extremity Exam Shoulder exam: Present: normal inspection, full ROM Arm exam: Present: normal inspection, full ROM Elbow exam: Present: normal inspection, full ROM Forearm/Wrist exam: Present: normal inspection, full ROM Hand exam: Present: normal inspection, full ROM Vascular exam: Normal: capillary refill, radial pulse - Expanded Lower Extremity Exam Hip/Pelvis exam: Present: normal inspection, full ROM Upper leg exam: Present: normal inspection, full ROM Knee exam: Present: normal inspection, full ROM Lower leg exam: Present: full ROM, swelling (4+). Absent: Homans' sign Ankle exam: Present: full ROM, swelling Foot/toe exam: Present: full ROM, swelling Neurovascular/Tendon exam: Present: normal capillary refill, normal fine/light touch Gait: observed and normal - Back Exam Back exam: Present: normal inspection, full ROM. Absent: muscle spasm - Neurological Exam Neurological exam: Present: alert, oriented X3, CN II-XII intact, normal gait - Psychiatric Psychiatric exam: Present: normal affect, normal mood - Skin Skin exam: Present: warm, dry, intact, normal color Course Course Narrative: Patient seen given Bumex because of pitting edema lower extremities shortness of breath she just wanted a shot of steroids and go but we talked to her about checking some labs because she has this significant edema legs and has had the subtle weight gain which may be making it harder for her to ambulate with results having been obtained she is agreeable for admission for observation transferred to [facility] [place] stable Vital Signs Temperature 97.4 F L 05/02/17 22:48 Pulse Rate 93 05/02/17 22:48 Respiratory Rate 16 05/02/17 22:48 Blood Pressure 176/85 05/02/17 22:48 O2 Sat by Pulse Oximetry 97 05/02/17 22:48 Temperature 97.4 F L 05/02/17 22:48 Pulse Rate 75 05/03/17 00:10 Respiratory Rate 13 05/03/17 01:14 Blood Pressure 147/81 05/03/17 01:14 O2 Sat by Pulse Oximetry 100 05/03/17 00:10 Oxygen Delivery Oxygen Delivery Nasal Cannula Shortness of Breath/Dyspnea - Differential Diagnosis Likely: acute exacerbation of chronic obstructive airways disease, congestive heart failure - Medical Records Medical records reviewed: Yes I reviewed the patient's medical records. - Lab Data Lab results reviewed: Yes I reviewed the patient's lab results. Result diagrams: 05/02/17 23:25 05/02/17 23:25 Lab Results 05/02/17 05/02/17 05/02/17 Range/Units 23:25 23:25 23:25 WBC 7.3 (4.3-11.1) K/mcL RBC 3.80 L (3.82-4.97) M/mcL Hgb 12.1 (11.5-15.4) g/dL Hct 36.8 (35.3-44.9) % MCV 96.8 (83.0-100.0) fL MCH 31.8 (28.0-33.3) pg MCHC 32.9 (31.6-35.5) g/dL RDW 12.9 (11.5-14.5) % Plt Count 134 L (140-400) K/mcL MPV 9.5 (9.4-12.4) fL Immature Gran % 1.1 (0-4) % Seg Neutrophils % 87.7 % Lymphocytes % 6.7 % Monocytes % 4.4 % Eosinophils % 0.0 % Basophils % 0.1 % Neutrophils # 6.4 (1.6-8.9) K/mcL Lymphocytes # 0.5 L (0.6-4.6) K/mcL Monocytes # 0.3 (0.0-1.3) K/mcL Eosinophils # 0.0 (0.0-0.6) K/mcL Basophils # 0.0 (0.0-0.2) K/mcL PT 12.2 H (9.4-12.1) Seconds INR 1.1 APTT 30.9 (26.0-36.0) Seconds Sodium 143 (136-145) mEq/L Potassium 3.6 (3.5-4.5) mEq/L Chloride 100 (98-109) mEq/L Carbon Dioxide 30 H (19-29) mEq/L BUN 15 (7-20) mg/dL Creatinine 0.89 (0.57-1.11) mg/dL Est GFR ( Amer) > 60 (> 60) Est GFR (Non-Af Amer) > 60 (> 60) BUN/Creatinine Ratio 17 (6-26) Glucose 160 H (70-99) mg/dL Calculated Osmolality 300 (280-300) Calcium 9.4 (8.6-10.8) mg/dL Troponin I (0-0.03) ng/mL B-Natriuretic Peptide (0-100) pg/mL 05/02/17 05/02/17 Range/Units 23:25 23:25 WBC (4.3-11.1) K/mcL RBC (3.82-4.97) M/mcL Hgb (11.5-15.4) g/dL Hct (35.3-44.9) % MCV (83.0-100.0) fL MCH (28.0-33.3) pg MCHC (31.6-35.5) g/dL RDW (11.5-14.5) % Plt Count (140-400) K/mcL MPV (9.4-12.4) fL Immature Gran % (0-4) % Seg Neutrophils % % Lymphocytes % % Monocytes % % Eosinophils % % Basophils % % Neutrophils # (1.6-8.9) K/mcL Lymphocytes # (0.6-4.6) K/mcL Monocytes # (0.0-1.3) K/mcL Eosinophils # (0.0-0.6) K/mcL Basophils # (0.0-0.2) K/mcL PT (9.4-12.1) Seconds INR APTT (26.0-36.0) Seconds Sodium (136-145) mEq/L Potassium (3.5-4.5) mEq/L Chloride (98-109) mEq/L Carbon Dioxide (19-29) mEq/L BUN (7-20) mg/dL Creatinine (0.57-1.11) mg/dL Est GFR ( Amer) (> 60) Est GFR (Non-Af Amer) (> 60) BUN/Creatinine Ratio (6-26) Glucose (70-99) mg/dL Calculated Osmolality (280-300) Calcium (8.6-10.8) mg/dL Troponin I 0.03 (0-0.03) ng/mL B-Natriuretic Peptide 387 H (0-100) pg/mL - Radiology Data Radiology results reviewed: Yes I reviewed the patient's radiology results. ITS Impressions Chest X-Ray 05/02/17 23:10 IMPRESSION: No acute process. D/ / Bong Tyler MD / Bong Tyler MD Interpreting Provider: Bong Tyler MD - EKG Data EKG attestation: Yes I reviewed and interpreted this EKG. EKG results narrative: This rhythm rate 81 pr 173 QRS 96 QT 368 axis XXXIX Critical Care Time Critical Care Time: No
[2017-05-02] MEDS ORDERED: 0.9 % Sodium Chloride 1,000 ML IVC SCH (23:15)
[2017-05-02 23:59] LABS: Basophils % 0.1 %; Hematocrit 36.8 % (35.3-44.9); Hemoglobin 12.1 g/dL (11.5-15.4); Immature Granulocytes % 1.1 % (0-4); Lymphocytes # 0.5 K/mcL (0.6-4.6); Lymphocytes % 6.7 %; Mean Corpuscular HGB Conc 32.9 g/dL (31.6-35.5); Mean Corpuscular Hemoglobin 31.8 pg (28.0-33.3); Mean Corpuscular Volume 96.8 fL (83.0-100.0); Mean Platelet Volume 9.5 fL (9.4-12.4); Monocytes # 0.3 K/mcL (0.0-1.3); Monocytes % 4.4 %; Neutrophils # 6.4 K/mcL (1.6-8.9); Platelet Count 134 K/mcL (140-400); Red Cell Distribution Width 12.9 % (11.5-14.5); Segmented Neutrophils % 87.7 %
[2017-05-03 00:05] LABS: INR 1.1; Prothrombin Time 12.2 Seconds (9.4-12.1)
[2017-05-03 00:08] LABS: Activated Partial Thrombo Time 30.9 Seconds (26.0-36.0)
[2017-05-03 00:14] LABS: BUN/Creatinine Ratio 17 (6-26); Blood Urea Nitrogen 15 mg/dL (7-20); Calcium 9.4 mg/dL (8.6-10.8); Carbon Dioxide 30 mEq/L (19-29); Chloride 100 mEq/L (98-109); Glucose 160 mg/dL (70-99); Osmolality,Calculated 300 (280-300); Potassium 3.6 mEq/L (3.5-4.5); Sodium 143 mEq/L (136-145); eGFR For African Americans > 60 (> 60); eGFR For Non-African Americans > 60 (> 60)
[2017-05-03] MEDS ORDERED: NON-FORMULARY MEDICATION 1 EACH EACH (Oxygen [Oxygen] 1 EACH) SCH (01:32)
[2017-05-03] MEDS ORDERED: Naloxone 0.4 MG/ML INJ IVP PRN (01:32)
[2017-05-03] MEDS ORDERED: 0.9 % Sodium Chloride 1,000 ML IVC SCH (01:32)
[2017-05-03] MEDS ORDERED: Ondansetron ODT 4 MG TAB.RAPDIS SL PRN (01:32)
[2017-05-03] MEDS: Ipratropium/Albuterol Neb 3 ML IH SCH ×2 (05:30→10:46)
[2017-05-03] MEDS ORDERED: methylPREDNISolone 125 MG/2 ML VIAL IVP SCH (06:00)
[2017-05-03] MEDS ORDERED: Bumetanide 1 MG/4 ML VIAL IVP SCH (06:00)
[2017-05-03] MEDS: *HR* OxyCODONE/APAP 10/325 TABLET PO PRN ×2 (06:36→12:53)
[2017-05-03 07:00] VITALS: BP 179/81
[2017-05-03] MEDS ORDERED: levoFLOXacin 500 MG TABLET PO SCH (09:00)
[2017-05-03] MEDS ORDERED: Aspirin 325 MG TABLET PO SCH (09:00)
[2017-05-03] MEDS ORDERED: ALPRAZolam 1 MG TABLET PO SCH ×2 (09:00→21:00)
--- NOTE | 2017-05-03 12:06 | Internal Med History&Physical ---
Date of Encounter: 05/03/17 Time of Encounter: 11:40 Assessment and Plan (1) Heart failure Current visit: Yes Status: Acute Type undetermined since no echocardiogram has been done. She has had intermittent elevation of BN peptide for approximately 18 months. I will start her on lisinopril, Bumex, and potassium. Qualifiers: Heart failure type: unspecified heart failure type Heart failure chronicity : unspecified heart failure chronicity Qualified Code(s): I50.9 - Heart failure, unspecified (2) Hypokalemia Current visit: No Status: Acute We will give supplemental potassium. Internal Medicine - H&P: HPI Chief complaint: Dyspnea Admitted From: Home Plans for Post Hospital Care: Home History of present illness: Ms. Newell is a 61 year old female came to emergency room stating she had progressive dyspnea and edema over the past week. She used Lasix from a previous prescription with some improvement. However she did not feel back to her baseline so decided to come to emergency room. She was evaluated and felt to have COPD and edema. She was admitted to [facility] floor for ongoing care needs. She was hospitalized last at [facility] March 2017 with exacerbation of COPD. Her respiratory history is significant for having smoked since age 16 up to 2 packs per day. She had PFTs at [facility] approximately 2007 and was told she had COPD. She wears oxygen at bedtime and when necessary during the daytime. She has not had workup for DUARTE. She had chest CT during the March 2017 hospitalization which showed nodules with recommended follow-up in 3-6 months. Her cardiovascular history is negative for known hypertension MD heart failure DVT or pulmonary embolus. She does not get chest pain on exertion. She thinks she had a Regadenoson EST approximately 10 years ago which was unremarkable. Past Med Surg Social Fam HX - Past Medical History Medical history: asthma, CHF, COPD, GERD, renal disease Psychiatric history: anxiety, depression - Past Surgical History Surgical History: cancer surgery, hysterectomy - Social History Smoking Status: Current every day smoker Smokeless Tobacco Status: No Alcohol use: none Drug use: none - Family History Daughter Adopted: No Family Member Ethnicity: Non- Living Status: Still Living Hx Family Cardiac Disorders: No Hx Family Respiratory Disorders: Yes (asthma) Hx Family Cancer: No Hx Family GI Disorders: No Hx Family Endocrine Disorder: No Hx Family Neuromuscular Disorders: No Hx Family Neurologic Disorders: No Hx Family HEENT Disorders: No Hx Family Autoimmune Disorders: No Internal Medicine - H&P: Meds Alprazolam [Xanax] 1 mg PO TID 03/10/15 [History] OxyCODONE/APAP 10/325 [Percocet 10/325] 1 each PO Q4-6H PRN 03/10/15 [History] Oxygen 1 each .ROUTE AD 03/10/15 [History] Aspirin 325 mg PO DAILY #15 tablet 06/07/16 [Rx] Omeprazole [PriLOSEC] 40 mg PO DAILY #15 cap 06/07/16 [Rx] Alprazolam [Xanax] 2 mg PO HS 03/18/17 [History] Albuterol Neb [Proventil Neb] 2.5 mg IH Q2H 05/02/17 [History] Budesonide/Formoterol 160/4.5 [Symbicort 160/4.5] 2 puff IH DAILY 05/02/17 [ History] Tiotropium [Spiriva] 18 mcg IH DAILY 05/02/17 [History] 3 Allergy/AdvReac Type Severity Reaction Status Date / Time No Known Allergies Allergy Verified 05/02/17 22:49 All Systems PM: A 10-system review of systems was performed and is negative for pertinent findings except as documented above in the HPI. Review of systems: Review of systems from the March 2017 [facility] hospitalization were reviewed and revised as below. Gen.: Her weight has been stable at 68.946 kg since the March 2017 hospitalization. Cardiovascular: As per history of present illness. Respiratory: As per history of present illness GI: She denies disorders of her liver gallbladder or exocrine pancreas. She had colon polyps diagnosed approximately 2011. : She has had hysterectomy. 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 Endocrine: She has hyperlipidemia. She has DM 2 and her most recent hemoglobin A1c was 6.8% on 03/19/2017. She has had suppressed TSH in the past but that has resolved. Hematology/oncology: She had cervical cancer with curative hysterectomy approximately 1981. She denies other internal malignancies or anemia. Psychiatric: She has anxiety and depression. Musk skeletal: She has chronic low back pain and degenerative disc disease. She denies osteoporosis or significant arthritis - Constitutional Vitals: Temp Pulse Resp BP Pulse Ox 98.4 F 96 14 179/81 92 05/03/17 06:56 05/03/17 06:56 05/03/17 10:46 05/03/17 06:56 05/03/17 10:46 Exam: General: She is a well-developed well-nourished female who appears in no acute distress at present time. She states her dyspnea has resolved and edema has improved. HEENT: Head is atraumatic and normal cephalic. Eyes: EOMI. There is no scleral icterus. Mouth: Mucosa is moist. Neck: Supple and nontender. There is no thyromegaly or adenopathy noted. Heart: Regular without murmurs gallops or ectopics Lungs: No wheezes or crackles are heard Abdomen: Soft and nontender. No masses or guarding are noted. Extremities: There is 1-2+ edema of the dorsum of feet and lower legs bilaterally. Dorsalis pedis and posterior tibial pulses are not palpable. She has mild DJD changes of her hands. Neurologic: Mental status: She is talkative and a good historian. Cranial nerves: Smile is symmetric. Forehead wrinkles bilaterally. Tongue protrudes midline. EOMI. Motor: There is no pronator drift. Cerebellar: Finger to nose is intact bilaterally. Skin: Warm and dry Internal Med - H&P Results - Labs CBC & Chem 7: 05/02/17 23:25 05/02/17 23:25 Labs: Cardiac Enzymes 05/03/17 05/03/17 Range/Units 04:28 10:55 Troponin I 0.03 0.02 (0-0.03) ng/mL
--- NOTE | 2017-05-03 12:16 | Discharge Summary ---
Date of Encounter: 05/03/17 Time of Encounter: 11:40 - Discharge Diagnosis (1) Heart failure Priority: Primary Status: Acute Qualifiers: Heart failure type: unspecified heart failure type Heart failure chronicity : unspecified heart failure chronicity Qualified Code(s): I50.9 - Heart failure, unspecified (2) Hypokalemia Priority: Secondary Status: Acute - Discharge Medications Prescriptions: Bumetanide [Bumex] 1 mg PO DAILY #15 tablet Lisinopril [Zestril] 20 mg PO DAILY #15 tablet Potassium Chloride 10 meq PO DAILY #15 tab.er.prt Home Medications: Alprazolam [Xanax] 1 mg PO TID 03/10/15 [History] OxyCODONE/APAP 10/325 [Percocet 10/325] 1 each PO Q4-6H PRN 03/10/15 [History] Oxygen 1 each .ROUTE AD 03/10/15 [History] Aspirin 325 mg PO DAILY #15 tablet 06/07/16 [Rx] Omeprazole [PriLOSEC] 40 mg PO DAILY #15 cap 06/07/16 [Rx] Alprazolam [Xanax] 2 mg PO HS 03/18/17 [History] Albuterol Neb [Proventil Neb] 2.5 mg IH Q2H 05/02/17 [History] Budesonide/Formoterol 160/4.5 [Symbicort 160/4.5] 2 puff IH DAILY 05/02/17 [ History] Tiotropium [Spiriva] 18 mcg IH DAILY 05/02/17 [History] Bumetanide [Bumex] 1 mg PO DAILY #15 tablet 05/03/17 [Rx] Lisinopril [Zestril] 20 mg PO DAILY #15 tablet 05/03/17 [Rx] Potassium Chloride 10 meq PO DAILY #15 tab.er.prt 05/03/17 [Rx] Allergies/Adverse Reactions: 3 Allergy/AdvReac Type Severity Reaction Status Date / Time No Known Allergies Allergy Verified 05/02/17 22:49 Date of admission: 05/03/17 01:01 Primary care physician: Alfred Cohen MD Consults: 05/03/17 06:42 Consult to Nutrition [CONS] Routine Comment: Consulting Provider: NUTRITION Reason for Dietary Consult: MST Score - Patient Status Disposition: Home, Self-Care Condition: Good Functional capacity at discharge: independent ambulation Overall status at discharge: patient is progressing back to baseline - Discharge Instructions Follow Up With: Alfred Cohen MD [Primary Care Provider] - 1 week - Diet and Activity Activity: resume usual activities as tolerated, wear oxygen at night Diet: advance to your usual diet Hospital course: Ms. Newell is a 61 year old female who came to emergency room stating she had progressive dyspnea and edema over the past week. She used Lasix from a previous prescription with some improvement. However she did not feel back to her baseline so decided to come to emergency room. She was evaluated and felt to have COPD and edema. She was admitted to [facility] for ongoing care needs. Initial orders were written by the emergency room physician. I saw her on May 03 and performed a history physical and discharge. When I saw her she felt improved and wished to be discharged home. She stated her edema had lessened and her dyspnea had resolved. I felt it was reasonable for her to be discharged home and follow up with her PCP within one week. Further cardiac workup such as an echocardiogram can be done as indicated. I will start her on lisinopril to assist in control of heart failure and blood pressure. She will also receive Bumex 1 mg daily and potassium 10 meq once daily. I gave her a 15 day supply prescription for these medications. She will follow with her PCP within one week. Repeat CT scan in 3-6 months was recommended from the March [address] - Time Spent with Patient Total time spent providing and/or coordinating discharge services: - Constitutional Vitals: Temp Pulse Resp BP Pulse Ox 98.4 F 96 14 179/81 92 05/03/17 06:56 05/03/17 06:56 05/03/17 10:46 05/03/17 06:56 05/03/17 10:46
--- NOTE | 2017-05-03 17:16 | Electrocardiograph Report ---
[address] [place], [place] [address] Test Date: 2017-05-02 Pat Name: Anthony Newell Department: [id number] Room: [facility] Gender: F Protection Consultant: Jamil : 1955 Requested By: Esme Cohen Order Number: [id number] Reading MD: Lizz Man Measurements Intervals [place] Rate: 81 P: 70 W[place]: 173 QRS: 39 QRSD: 96 T: 52 QT: 368 QTc: 405 Interpretive Statements SINUS RHYTHM Electronically Signed On 05-03-2017 17:14:54 EDT by Lizz Man
== END 2017-05-03 12:56 | disposition home or self-care (01) ==
LOC: EMEROOPIK 22:45 → INPPIK 22:45
PROVIDERS: ADMIT Internal Medicine; ATTEND Internal Medicine

== ENCOUNTER 2017-05-07 20:07 | Observation (INO) ==
[2017-05-07] MEDS ORDERED: methylPREDNISolone 125 MG/2 ML VIAL IVP ONE (20:10)
[2017-05-07] MEDS ORDERED: Ipratropium/Albuterol Neb 3 ML IH ONE (20:10)
[2017-05-07] MEDS ORDERED: Levofloxacin 750 MG/150 ML 750 MG/150 ML BAG IVPB ONE (20:10)
--- NOTE | 2017-05-07 20:12 | Emergency Department Note ---
Disposition Clinical Impression: Acute exacerbation of chronic obstructive airways disease Disposition: Admitted As Inpatient Condition: Fair Referrals: Alfred Cohen MD [Primary Care Provider] - Forms: ED Satisfaction Letter Time of Disposition: 20:37 ([facility]) SOB HPI - General Chief Complaint: ED Shortness of Breath/Dyspnea Stated Complaint: SHORT OF BREATH Time Seen by Provider: 05/07/17 20:07 Source: patient Mode of arrival: ambulatory Limitations: no limitations Nursing Notes Reviewed: Yes Vital Signs Reviewed: Yes - History of Present Illness Recently hospitalized discharge 3 days ago for COPD exacerbation has gotten worse has gone home and smoke since being discharged patient states that she has had no fevers no chills she just had lightheaded dyspnea she denies any abdominal pain or discomfort she denies diarrhea melena she has any blurred vision double vision states that she cannot catch her breath patient states that she is wheezing tight she says she is currently not on steroids she denies of fever chills abdominal pain or discomfort diarrhea melena hematochezia or hematemesis Pt Subjective Complaint: shortness of breath Onset (ago): day(s) (2) Context: recent illness Severity: moderate Consistency/Duration: constant Improves with: oxygen, bronchodilators Worsens with: nothing Known history of: COPD Associated symptoms: Reports: wheezing, sputum production. Denies: chest pain, pain with inspiration, fever, cough, orthopnea, lower extremity pain, polyuria, polydipsia, parasthesias, palpitations, hemoptysis, diaphoresis, nausea/vomiting , syncope, abdominal pain, sense of impending doom Treatment prior to arrival: oxygen, bronchodilator Cough present: No Sputum production: No - Related Data Home Medications Medication Instructions Recorded Confirmed Alprazolam [Xanax] 1 mg PO TID 03/10/15 05/07/17 OxyCODONE/APAP 10/325 [Percocet 1 each PO Q4-6H PRN 03/10/15 05/07/17 10/325] Oxygen 1 each .ROUTE AD 03/10/15 05/07/17 Alprazolam [Xanax] 2 mg PO HS 03/18/17 05/07/17 Albuterol Neb [Proventil Neb] 2.5 mg IH Q2H 05/02/17 05/07/17 Budesonide/Formoterol 160/4.5 2 puff IH DAILY 10/01/17 10/06/17 [Symbicort 160/4.5] Tiotropium [Spiriva] 18 mcg IH DAILY 05/02/17 05/07/17 Previous Rx's Medication Instructions Recorded Aspirin 325 mg PO DAILY #15 tablet 06/07/16 Omeprazole [PriLOSEC] 40 mg PO DAILY #15 cap 06/07/16 Bumetanide [Bumex] 1 mg PO DAILY #15 tablet 05/03/17 Lisinopril [Zestril] 20 mg PO DAILY #15 tablet 05/03/17 Potassium Chloride 10 meq PO DAILY #15 tab.er.prt 05/03/17 Allergies Allergy/AdvReac Type Severity Reaction Status Date / Time No Known Allergies Allergy Verified 05/07/17 20:09 All systems ED: reviewed and negative except as stated. Review of Systems: As Per HPI Constitutional: Denies: fever, chills, weakness Eyes: Denies: eye pain, eye discharge ENT ED: Denies: ear pain Cardiovascular: Reports: palpitations, dyspnea on exertion. Denies: chest pain Respiratory: Reports: dyspnea, wheezes. Denies: cough Gastrointestinal: Denies: abdominal pain, nausea, vomiting Genitourinary: Denies: urgency, dysuria Musculoskeletal: Denies: back pain Integumentary: Denies: rash, abrasion Neurological: Denies: headache Psychiatric: Denies: anxiety, depression Endocrine: Denies: fatigue Hematological/Lymphatic: Denies: easy bleeding Allergic/Immunologic: Denies: facial swelling Past Medical History - Past Medical History Attestation: Yes The following information was validated with the patient. 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 - Social History Smoking Status: Current every day smoker Smokeless Tobacco Status: No Alcohol use: Reports: none Drug use: Reports: none Physical Exam - General Limitations: no limitations General appearance: alert, in no apparent distress, anxious - Head Head exam: atraumatic, normocephalic, normal inspection - Eye Eye exam: Present: normal appearance, PERRL, EOMI - ENT ENT exam: normal exam, normal oropharynx, mucous membranes moist, normal external ear exam - Neck Neck exam: Present: normal inspection, full ROM, trachea midline - Chest Chest inspection: Present: normal inspection, symmetric chest wall rise - Respiratory Respiratory exam: Present: wheezes, accessory muscle use, prolonged expiratory phase - Cardiovascular Cardiovascular exam: Present: regular rate, normal rhythm, normal heart sounds - Abdominal Exam Abdominal exam: Present: soft, Non-Tender, normal bowel sounds. Absent: mass, pulsatile mass - Expanded Upper Extremity Exam Shoulder exam: Present: normal inspection, full ROM Arm exam: Present: normal inspection, full ROM Elbow exam: Present: normal inspection, full ROM Forearm/Wrist exam: Present: normal inspection, full ROM Hand exam: Present: normal inspection, full ROM Vascular exam: Normal: capillary refill, radial pulse - Expanded Lower Extremity Exam Hip/Pelvis exam: Present: normal inspection, full ROM Upper leg exam: Present: normal inspection, full ROM Knee exam: Present: normal inspection, full ROM Lower leg exam: Present: normal inspection, full ROM Ankle exam: Present: normal inspection, full ROM Foot/toe exam: Present: normal inspection, full ROM Neurovascular/Tendon exam: Present: normal capillary refill, normal fine/light touch. Absent: motor deficit, sensory deficit, tendon deficit Gait: observed and normal - Back Exam Back exam: Present: normal inspection, full ROM. Absent: tenderness, muscle spasm - Neurological Exam Neurological exam: Present: alert, oriented X3, CN II-XII intact - Psychiatric Psychiatric exam: Present: normal affect, normal mood - Skin Skin exam: Present: warm, dry, intact, normal color Course Course Narrative: Seen and examined given an aerosol treatment labs admitted transferred to [facility] [place] on steroids [facility] agreed Vital Signs Temperature 98.7 F 05/07/17 20:11 Pulse Rate 107 05/07/17 20:11 Respiratory Rate 26 05/07/17 20:11 Blood Pressure 165/83 05/07/17 20:11 O2 Sat by Pulse Oximetry 96 05/07/17 20:11 Temperature 98.7 F 05/07/17 20:11 Pulse Rate 107 05/07/17 20:11 Respiratory Rate 26 05/07/17 20:11 Blood Pressure 165/83 05/07/17 20:11 O2 Sat by Pulse Oximetry 96 05/07/17 20:11 Oxygen Delivery Oxygen Delivery Nasal Cannula Shortness of Breath/Dyspnea - Differential Diagnosis Likely: acute exacerbation of chronic obstructive airways disease - Medical Records Medical records reviewed: Yes I reviewed the patient's medical records. - Lab Data Lab results reviewed: Yes I reviewed the patient's lab results. - Radiology Data Radiology results reviewed: Yes I reviewed the patient's radiology results. Critical Care Time Critical Care Time: No
[2017-05-07] MEDS ORDERED: 0.9 % Sodium Chloride 1,000 ML IVC SCH (20:15)
[2017-05-07 20:29] LABS: Basophils % 0.1 %; Eosinophils % 0.3 %; Hematocrit 43.3 % (35.3-44.9); Hemoglobin 14.5 g/dL (11.5-15.4); Immature Granulocytes % 0.5 % (0-4); Lymphocytes # 0.7 K/mcL (0.6-4.6); Lymphocytes % 5.8 %; Mean Corpuscular HGB Conc 33.5 g/dL (31.6-35.5); Mean Corpuscular Hemoglobin 32.1 pg (28.0-33.3); Mean Corpuscular Volume 95.8 fL (83.0-100.0); Mean Platelet Volume 10.1 fL (9.4-12.4); Monocytes # 0.5 K/mcL (0.0-1.3); Neutrophils # 10.6 K/mcL (1.6-8.9); Platelet Count 165 K/mcL (140-400); Red Blood Count 4.52 M/mcL (3.82-4.97); Red Cell Distribution Width 13.1 % (11.5-14.5); Segmented Neutrophils % 89.3 %
[2017-05-07 20:42] LABS: Calcium 9.6 mg/dL (8.6-10.8)
[2017-05-07] MEDS ORDERED: Ondansetron ODT 4 MG TAB.RAPDIS SL PRN (21:33)
[2017-05-07] MEDS ORDERED: Naloxone 0.4 MG/ML INJ IVP PRN (21:33)
[2017-05-07] MEDS ORDERED: ALPRAZolam 1 MG TABLET PO SCH (21:33)
[2017-05-07] MEDS ORDERED: Dextrose Gel 15 GM PO PRN ×2 (21:33)
[2017-05-07] MEDS ORDERED: NON-FORMULARY MEDICATION 1 EACH EACH (Oxygen [Oxygen] 1 EACH) SCH (21:33)
[2017-05-07] MEDS ORDERED: *HR* Dextrose 50 % in Water (Syg) 50 ML SYRINGE IVP PRN (21:33)
[2017-05-07] MEDS ORDERED: D5% in Water 1,000 ML IVC PRN (21:33)
[2017-05-07] MEDS: *HR* OxyCODONE/APAP 10/325 TABLET PO PRN (21:53)
[2017-05-07] MEDS: ALPRAZolam 1 MG TABLET PO SCH (21:53)
[2017-05-07] MEDS: 0.9 % Sodium Chloride 1,000 ML IVC SCH (21:53)
[2017-05-07] MEDS: Ipratropium/Albuterol Neb 3 ML IH SCH (22:29)
[2017-05-07] MEDS ORDERED: Albuterol 2.5 MG/3 ML NEBULIZER IH PRN (22:48)
[2017-05-08] MEDS ORDERED: Albuterol 2.5 MG/3 ML NEBULIZER IH SCH
[2017-05-08] MEDS: methylPREDNISolone 125 MG/2 ML VIAL IVP SCH ×3 (00:15→12:00)
[2017-05-08] MEDS: 0.9 % Sodium Chloride 1,000 ML IVC SCH ×2 (00:26→14:29)
[2017-05-08] MEDS: Ipratropium/Albuterol Neb 3 ML IH SCH ×4 (04:58→22:07)
[2017-05-08] MEDS: *HR* OxyCODONE/APAP 10/325 TABLET PO PRN ×4 (06:05→20:33)
[2017-05-08] MEDS ORDERED: Bumetanide 1 MG TABLET PO SCH ×2 (09:00→15:46)
[2017-05-08] MEDS: Aspirin 325 MG TABLET PO SCH (09:23)
[2017-05-08] MEDS: Lisinopril 20 MG TABLET PO SCH (09:24)
[2017-05-08] MEDS: ALPRAZolam 1 MG TABLET PO SCH ×4 (09:24→20:34)
[2017-05-08] MEDS: Insulin LISPRO 300 UNITS/3 ML VIAL SQ SCH ×3 (09:27→17:23)
[2017-05-08] MEDS: Nicotine 14 MG PATCH.TD24 TD SCH (09:28)
[2017-05-08] MEDS ORDERED: Budesonide/Formoterol 160/4.5 MDI IH SCH ×2 (10:00→22:00)
[2017-05-08] MEDS ORDERED: Tiotropium 18 MCG inhalation IH SCH (10:00)
--- NOTE | 2017-05-08 15:35 | Internal Med History&Physical ---
Date of Encounter: 05/08/17 Time of Encounter: 15:10 Assessment and Plan (1) Acute exacerbation of chronic obstructive airways disease Current visit: Yes Status: Acute She has been given Levaquin and Solu-Medrol. Will add lactobacillus. Suspect acute bronchitis. (2) Heart failure Current visit: No Status: Acute BN peptide has improved since 05/03/2017. Will reduce Bumex to lessen azotemia. Qualifiers: Heart failure type: unspecified heart failure type Heart failure chronicity : unspecified heart failure chronicity Qualified Code(s): I50.9 - Heart failure, unspecified Internal Medicine - H&P: HPI Chief complaint: Dyspnea Admitted From: Home Plans for Post Hospital Care: Home History of present illness: Ms. Newell is a 61 year old female who came to emergency room stating she had increasing dyspnea over the preceding 2-3 days. She was admitted and discharged from [facility] 05/03/2017 with diagnosis of heart failure. She was started on lisinopril, Bumex, and potassium discharge and states she has not missed any doses. She has continued to smoke cigarettes AGAINST MEDICAL ADVICE. She was evaluated in emergency room and felt to have exacerbation of COPD. She was admitted to [facility] for ongoing care needs. Her respiratory history is significant for having smoked since age 16 up to 2 packs per day. She had PFTs at [facility] approximately 2007 and was told she had COPD. She wears oxygen at bedtime and when necessary during the daytime. She has not had workup for DUARTE. She had chest CT during the March 2017 hospitalization which showed nodules with recommended follow-up in 3-6 months. Past Med Surg Social Fam HX - Past Medical History Medical history: asthma, CHF, COPD, GERD, renal disease Psychiatric history: anxiety, depression - Past Surgical History Surgical History: cancer surgery, hysterectomy - Social History Smoking Status: Current every day smoker Smokeless Tobacco Status: No Alcohol use: none Drug use: none - Family History Daughter Adopted: No Family Member Ethnicity: Non- Living Status: Still Living Hx Family Cardiac Disorders: No Hx Family Respiratory Disorders: Yes (asthma) Hx Family Cancer: No Hx Family GI Disorders: No Hx Family Endocrine Disorder: No Hx Family Neuromuscular Disorders: No Hx Family Neurologic Disorders: No Hx Family HEENT Disorders: No Hx Family Autoimmune Disorders: No Internal Medicine - H&P: Meds Alprazolam [Xanax] 1 mg PO TID 03/10/15 [History] OxyCODONE/APAP 10/325 [Percocet 10/325] 1 each PO Q4-6H PRN 03/10/15 [History] Oxygen 1 each .ROUTE AD 03/10/15 [History] Aspirin 325 mg PO DAILY #15 tablet 06/07/16 [Rx] Omeprazole [PriLOSEC] 40 mg PO DAILY #15 cap 06/07/16 [Rx] Alprazolam [Xanax] 2 mg PO HS 03/18/17 [History] Albuterol Neb [Proventil Neb] 2.5 mg IH Q2H 05/02/17 [History] Budesonide/Formoterol 160/4.5 [Symbicort 160/4.5] 2 puff IH DAILY 05/02/17 [ History] Tiotropium [Spiriva] 18 mcg IH DAILY 05/02/17 [History] Bumetanide [Bumex] 1 mg PO DAILY #15 tablet 05/03/17 [Rx] Lisinopril [Zestril] 20 mg PO DAILY #15 tablet 05/03/17 [Rx] Potassium Chloride 10 meq PO DAILY #15 tab.er.prt 05/03/17 [Rx] 3 Allergy/AdvReac Type Severity Reaction Status Date / Time No Known Allergies Allergy Verified 05/07/17 20:09 All Systems PM: A 10-system review of systems was performed and is negative for pertinent findings except as documented above in the HPI. Review of systems: Review of systems from her hospitalization 05/03/2017 were reviewed and revised as below Gen.: Her weight has decreased from 69.485 kg on 05/03/2017 to 65.351 kg today. Cardiovascular: She denies hypertension [place] heart failure DVT or pulmonary embolus. She does not get chest pain on exertion. She thinks she had a Regadenoson EST approximately 10 years ago which was unremarkable. Respiratory: As per history of present illness GI: She denies disorders of her liver gallbladder or exocrine pancreas. She had colon polyps diagnosed approximately 2011. : She has had hysterectomy. 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 Endocrine: She has hyperlipidemia. She has DM 2 and her most recent hemoglobin A1c was 6.8% on 03/19/2017. She has had suppressed TSH in the past but that has resolved. Hematology/oncology: She had cervical cancer with curative hysterectomy approximately 1981. She denies other internal malignancies or anemia. Psychiatric: She has anxiety and depression. [place] skeletal: She has chronic low back pain and degenerative disc disease. She denies osteoporosis or significant arthritis - Constitutional Vitals: Temp Pulse Resp BP Pulse Ox 98.4 F 106 18 119/65 94 05/08/17 10:46 05/08/17 10:46 05/08/17 10:46 05/08/17 10:46 05/08/17 10:46 Exam: Gen.: She is a well-developed well-nourished female sitting in bed who appears in mild respiratory distress HEENT: Head is atraumatic and normocephalic. Eyes: EOMI. There is no scleral icterus. Mouth: Mucosa is moist. Neck: Supple and nontender. There is no thyromegaly or adenopathy noted. Heart: Regular without murmurs gallops or ectopics Lungs: She has prolonged expiratory phase and mild diffuse wheezing. No inspiratory crackles are heard. Abdomen: Soft and nontender. No masses or guarding noted. Extremities: There is no cyanosis edema or clubbing noted. Dorsalis pedis and posttibial pulses are trace palpable bilaterally. Neurologic: Mental status: She is talkative and a good historian. Cranial nerves: Smile is symmetric. Forehead wrinkles bilaterally. Tongue protrudes midline. EOMI. Motor: There is no pronator drift. Cerebellar: Finger to nose is intact bilaterally. Skin: Warm and dry Internal Med - H&P Results - Labs CBC & Chem 7: 05/07/17 20:19 05/07/17 20:19
[2017-05-08] MEDS: Lactobacillus 1 EACH CAP.SPRINK PO SCH (20:33)
[2017-05-08] MEDS ORDERED: Levofloxacin 250 MG/50 ML 250 MG/50 ML BAG IVPB SCH (21:00)
[2017-05-09] MEDS: *HR* OxyCODONE/APAP 10/325 TABLET PO PRN ×2 (03:48→08:19)
[2017-05-09] MEDS: Ipratropium/Albuterol Neb 3 ML IH SCH (04:37)
[2017-05-09 06:26] LABS: Basophils % 0.1 %; Eosinophils % 0.1 %; Hematocrit 39.1 % (35.3-44.9); Hemoglobin 12.6 g/dL (11.5-15.4); Immature Granulocytes % 0.6 % (0-4); Lymphocytes # 0.5 K/mcL (0.6-4.6); Lymphocytes % 3.7 %; Mean Corpuscular HGB Conc 32.2 g/dL (31.6-35.5); Mean Corpuscular Hemoglobin 31.6 pg (28.0-33.3); Mean Platelet Volume 10.6 fL (9.4-12.4); Monocytes # 0.5 K/mcL (0.0-1.3); Monocytes % 3.5 %; Neutrophils # 11.9 K/mcL (1.6-8.9); Platelet Count 141 K/mcL (140-400); Red Blood Count 3.99 M/mcL (3.82-4.97)
[2017-05-09 06:42] VITALS: BP 135/70
[2017-05-09 06:46] LABS: BUN/Creatinine Ratio 23 (6-26); Blood Urea Nitrogen 22 mg/dL (7-20); Calcium 8.8 mg/dL (8.6-10.8); Carbon Dioxide 26 mEq/L (19-29); Chloride 97 mEq/L (98-109); Glucose 341 mg/dL (70-99); Magnesium 1.8 mg/dL (1.6-2.6); Osmolality,Calculated 307 (280-300); Potassium 3.6 mEq/L (3.5-4.5); Sodium 140 mEq/L (136-145); eGFR For African Americans > 60 (> 60); eGFR For Non-African Americans > 60 (> 60)
[2017-05-09] MEDS: Lactobacillus 1 EACH CAP.SPRINK PO SCH (08:18)
[2017-05-09] MEDS: Aspirin 325 MG TABLET PO SCH (08:18)
[2017-05-09] MEDS: Lisinopril 20 MG TABLET PO SCH (08:19)
[2017-05-09] MEDS: ALPRAZolam 1 MG TABLET PO SCH (08:19)
[2017-05-09] MEDS: Insulin LISPRO 300 UNITS/3 ML VIAL SQ SCH (08:23)
[2017-05-09] MEDS: Nicotine 14 MG PATCH.TD24 TD SCH (08:24)
--- NOTE | 2017-05-09 09:46 | Discharge Summary ---
Date of Encounter: 05/09/17 Time of Encounter: 09:35 - Discharge Diagnosis (1) Acute exacerbation of chronic obstructive airways disease Priority: Primary Status: Acute (2) Heart failure Priority: Secondary Status: Chronic Qualifiers: Heart failure type: unspecified heart failure type Heart failure chronicity : unspecified heart failure chronicity Qualified Code(s): I50.9 - Heart failure, unspecified - Discharge Medications Prescriptions: Lactobacillus [Culturelle] 1 each PO BID #10 cap.sprink levoFLOXacin [Levaquin] 500 mg PO DAILY #5 tablet predniSONE [PredniSONE] 10 mg PO BIDWM #10 tablet Home Medications: Alprazolam [Xanax] 1 mg PO TID 03/10/15 [History] OxyCODONE/APAP 10325 [Percocet ] 1 each PO Q4-6H PRN 03/10/15 [History] Oxygen 1 each .ROUTE AD 03/10/15 [History] Aspirin 325 mg PO DAILY #15 tablet 06/07/16 [Rx] Omeprazole [PriLOSEC] 40 mg PO DAILY #15 cap 06/07/16 [Rx] Alprazolam [Xanax] 2 mg PO HS 03/18/17 [History] Albuterol Neb [Proventil Neb] 2.5 mg IH Q2H 05/02/17 [History] Budesonide/Formoterol 160/4.5 [Symbicort 160/4.5] 2 puff IH DAILY 05/02/17 [ History] Tiotropium [Spiriva] 18 mcg IH DAILY 05/02/17 [History] Lisinopril [Zestril] 20 mg PO DAILY #15 tablet 05/03/17 [Rx] Potassium Chloride 10 meq PO DAILY #15 tab.er.prt 05/03/17 [Rx] Bumetanide [Bumex] 0.5 mg PO DAILY #15 tablet 05/09/17 [Rx] Lactobacillus [Culturelle] 1 each PO BID #10 cap.sprink 05/09/17 [Rx] levoFLOXacin [Levaquin] 500 mg PO DAILY #5 tablet 05/09/17 [Rx] predniSONE [PredniSONE] 10 mg PO BIDWM #10 tablet 05/09/17 [Rx] Allergies/Adverse Reactions: 3 Allergy/AdvReac Type Severity Reaction Status Date / Time No Known Allergies Allergy Verified 05/07/17 20:09 Date of admission: 05/07/17 20:30 Primary care physician: Alfred Cohen MD Consults: 05/07/17 22:00 Consult to Nutrition [CONS] Routine Comment: Consulting Provider: NUTRITION Reason for Dietary Consult: MST Score - Patient Status Disposition: Home, Self-Care Condition: Fair Functional capacity at discharge: independent ambulation Overall status at discharge: patient is progressing back to baseline - Discharge Instructions Follow Up With: Alfred Cohen MD [Primary Care Provider] - 1 week - Diet and Activity Activity: resume usual activities as tolerated Diet: advance to your usual diet Hospital course: Ms. Newell is a 61 year old female who came to emergency room stating she had increasing dyspnea over the preceding 2-3 days. She was admitted and discharged from [facility] 05/03/2017 with diagnosis of heart failure. She was started on lisinopril, Bumex, and potassium discharge and states she has not missed any doses. She has continued to smoke cigarettes AGAINST MEDICAL ADVICE. She was evaluated in emergency room and felt to have exacerbation of COPD. She was admitted to [facility] for ongoing care needs. Initial orders were written by the emergency room physician. I saw her on May 08 and performed the history and physical. She was started on Levaquin and Solu-Medrol. I added lactobacillus. She remained afebrile during her hospital stay. WBC raven slightly to 12.9 on the day of discharge with left shift present on differential. She will continue with antibiotic and probiotic with prednisone for 5 additional days at discharge. Bumex dose was decreased to 0.5 mg daily to lessen azotemia. Labs on May 09 showed BUN and creatinine improved to 22 and 0.95 respectively with estimated GFR greater than 60. On May 09 she was stable for discharge home. She will follow with Dr. Cohen within 1 week. I encouraged her strongly to become a nonsmoker. - Time Spent with Patient Total time spent providing and/or coordinating discharge services: - Constitutional Vitals: Temp Pulse Resp BP Pulse Ox 98.3 F 77 18 135/70 95 05/09/17 06:38 05/09/17 06:38 05/09/17 06:38 05/09/17 06:38 05/09/17 06:56 - VTE Reasons for not Prescribing Prophylaxis: Treatment not Indicated - Low risk for VTE
--- NOTE | 2017-05-09 11:29 | Physician Discharge Referral ---
Home Health/Hosp Referral Info Transfer to: Home Health Attending Provider: Clay Provider in Charge Post Discharge: PCP (Alfred Cohen M.D.) - Diagnosis (1) Acute exacerbation of chronic obstructive airways disease Priority: Primary Status: Acute (2) Heart failure Priority: Secondary Status: Chronic - Respiratory Orders Oxygen / L per min (2 L per minute by nasal cannula to keep saturation greater than 90%) Smoking Cessation: Smoking cessation has been advised. For more information, call the [place] Tobacco Quit Line at 3-040-HQWK-NOW. - Diet/Nutrition Diet/Nutrition Orders: Regular - Activity Activity Orders: Ambulate - Services Needed Following services are medically necessary services: Nursing, Home Health Aide, Physical Therapy, Occupational Therapy - Transfer Medications Prescriptions: Lactobacillus [Culturelle] 1 each PO BID #10 cap.sprink levoFLOXacin [Levaquin] 500 mg PO DAILY #5 tablet predniSONE [PredniSONE] 10 mg PO BIDWM #10 tablet Home Medications: Alprazolam [Xanax] 1 mg PO TID 03/10/15 [History] OxyCODONE/APAP 10/325 [Percocet 10/325] 1 each PO Q4-6H PRN 03/10/15 [History] Oxygen 1 each .ROUTE AD 03/10/15 [History] Aspirin 325 mg PO DAILY #15 tablet 06/07/16 [Rx] Omeprazole [PriLOSEC] 40 mg PO DAILY #15 cap 06/07/16 [Rx] Alprazolam [Xanax] 2 mg PO HS 03/18/17 [History] Albuterol Neb [Proventil Neb] 2.5 mg IH Q2H 05/02/17 [History] Budesonide/Formoterol 160/4.5 [Symbicort 160/4.5] 2 puff IH DAILY 05/02/17 [ History] Tiotropium [Spiriva] 18 mcg IH DAILY 05/02/17 [History] Lisinopril [Zestril] 20 mg PO DAILY #15 tablet 05/03/17 [Rx] Potassium Chloride 10 meq PO DAILY #15 tab.er.prt 05/03/17 [Rx] Bumetanide [Bumex] 0.5 mg PO DAILY #15 tablet 05/09/17 [Rx] Lactobacillus [Culturelle] 1 each PO BID #10 cap.sprink 05/09/17 [Rx] levoFLOXacin [Levaquin] 500 mg PO DAILY #5 tablet 05/09/17 [Rx] predniSONE [PredniSONE] 10 mg PO BIDWM #10 tablet 05/09/17 [Rx] Allergies/Adverse Reactions: 3 Allergy/AdvReac Type Severity Reaction Status Date / Time No Known Allergies Allergy Verified 05/07/17 20:09 Certification: Further, I certify that my clinical findings support that this patient is homebound (i.e. absences from home require considerable and taxing effort and are for medical reasons or yazidi services or infrequently or short duration when for other reasons) because: Homebound Reason: Leaving home requires considerable and taxing effort due to condition (Severe COPD) Attestation: My signature below is to certify that this patient is under my care and that I, or nurse practitioner, or a physician's respiratory assistant working with me, has a face-to -face encounter with this patient.
[2017-05-09] MEDS ORDERED: Levofloxacin 750 MG/150 ML 750 MG/150 ML BAG IVPB SCH (21:00)
== END 2017-05-09 11:00 | disposition home health service (06) ==
LOC: INPPIK 20:07 → EMEROOPIK 20:07 → INPPIK 21:22
PROVIDERS: ADMIT Internal Medicine; ATTEND Internal Medicine

== ENCOUNTER 2017-06-01 01:08 | Observation (INO) ==
[2017-06-01] MEDS ORDERED: Levofloxacin 500 MG/100 ML 500 MG/100 ML BAG IVPB ONE (01:14)
[2017-06-01] MEDS ORDERED: methylPREDNISolone 125 MG/2 ML VIAL IVP ONE (01:14)
[2017-06-01] MEDS ORDERED: Ipratropium/Albuterol Neb 3 ML IH ONE (01:14)
[2017-06-01] MEDS ORDERED: 0.9 % Sodium Chloride 1,000 ML IVC SCH ×2 (01:15→04:05)
[2017-06-01 01:42] LABS: ABG Base Excess 9 mEq/L (-2 to 3); ABG HCO3 36 mEq/L (21-27); ABG Oxygen Saturation 93 % (95-98); ABG PCO2 60 mmHg (35-45); ABG PH 7.38 pH Units (7.32-7.45); ABG PO2 70 mmHg (85-104); ABG TCO2 37 mEq/L (20-26); Blood Gas Modality nc
[2017-06-01] MEDS ORDERED: Ipratropium/Albuterol Neb 3 ML ONE (01:43)
[2017-06-01 02:02] LABS: Basophils % 0.4 %; Eosinophils # 0.1 K/mcL (0.0-0.6); Eosinophils % 1.2 %; Hematocrit 33.9 % (35.3-44.9); Hemoglobin 11.2 g/dL (11.5-15.4); Immature Granulocytes % 0.3 % (0-4); Lymphocytes # 2.4 K/mcL (0.6-4.6); Lymphocytes % 32.1 %; Mean Corpuscular Hemoglobin 31.3 pg (28.0-33.3); Mean Corpuscular Volume 94.7 fL (83.0-100.0); Mean Platelet Volume 9.4 fL (9.4-12.4); Monocytes # 0.9 K/mcL (0.0-1.3); Monocytes % 12.6 %; Platelet Count 199 K/mcL (140-400); Red Blood Count 3.58 M/mcL (3.82-4.97); Red Cell Distribution Width 13.1 % (11.5-14.5); Segmented Neutrophils % 53.4 %
--- NOTE | 2017-06-01 02:02 | Emergency Department Note ---
Disposition Clinical Impression: Acute exacerbation of chronic obstructive airways disease, DM type 2 (diabetes mellitus, type 2) Disposition: Admitted As Inpatient Condition: Fair Time of Disposition: 03:00 (deepak irby) Altered Mental Status HPI - General Chief Complaint: ED General Medical Stated Complaint: Drowsy-can't stay awake Time Seen by Provider: 06/01/17 01:09 Source: patient Mode of arrival: wheelchair Limitations: physical limitation, age, other Nursing Notes Reviewed: Yes Vital Signs Reviewed: Yes - History of Present Illness HPI Narrative: Patient's family brought the patient in initially presenting to the emergency masking if we were busy when asked what was going on they said they were having trouble arousing her mom patient was brought to the emergency room she is a well -known COPD here in our emergency room she is lethargic difficult to arouse she says she takes pain medications every 4 hours she takes Xanax 3 times a day she states that she cannot stay awake she denies blurred vision double vision loss vision she has headache neck pain neck stiffness she denies any blurred vision double vision loss vision just states that she is lethargic she denies cough cold of flulike symptoms numbness tingling weakness or further worsening symptoms no history of liver issues MD complaint: altered mental status, decreased responsiveness Onset (ago): hour(s) Timing confirmed by: family member Pain Severity: none Consistency of Symptoms: waxing and waning, getting worse Context: COPD Associated symptoms: Reports: malaise, weakness. Denies: chest pain, cough, diaphoresis, fever, chills, headaches, loss of appetite, nausea/vomiting, rash, seizure, shortness of breath, syncope, foul smelling urine, difficulty walking, diarrhea, incontinence - Related Data Home Medications Medication Instructions Recorded Confirmed Alprazolam [Xanax] 1 mg PO TID 03/10/15 06/01/17 OxyCODONE/APAP 10/325 [Percocet 1 each PO Q4-6H PRN 03/10/15 06/01/17 10/325] Oxygen 1 each .ROUTE AD 03/10/15 06/01/17 Alprazolam [Xanax] 2 mg PO HS 03/18/17 06/01/17 Albuterol Neb [Proventil Neb] 2.5 mg IH Q2H 05/02/17 06/01/17 Budesonide/Formoterol 160/4.5 2 puff IH DAILY 05/02/17 06/01/17 [Symbicort 160/4.5] Tiotropium [Spiriva] 18 mcg IH DAILY 05/02/17 06/01/17 Previous Rx's Medication Instructions Recorded Aspirin 325 mg PO DAILY #15 tablet 06/07/16 Omeprazole [PriLOSEC] 40 mg PO DAILY #15 cap 06/07/16 Lisinopril [Zestril] 20 mg PO DAILY #15 tablet 05/03/17 Potassium Chloride 10 meq PO DAILY #15 tab.er.prt 05/03/17 Bumetanide [Bumex] 0.5 mg PO DAILY #15 tablet 05/09/17 Lactobacillus [Culturelle] 1 each PO BID #10 cap.sprink 05/09/17 levoFLOXacin [Levaquin] 500 mg PO DAILY #5 tablet 05/09/17 predniSONE [PredniSONE] 10 mg PO BIDWM #10 tablet 05/09/17 Allergies Allergy/AdvReac Type Severity Reaction Status Date / Time No Known Allergies Allergy Verified 05/07/17 20:09 All systems ED: reviewed and negative except as stated. (PER family) Limitations: ROS unobtainable due to patients medical condition Constitutional: Reports: weakness. Denies: fever, chills Eyes: Denies: eye pain ENT ED: Denies: ear pain Cardiovascular: Denies: chest pain, palpitations Respiratory: Reports: wheezes Gastrointestinal: Denies: abdominal pain, nausea Genitourinary: Denies: urgency, dysuria Musculoskeletal: Denies: back pain Integumentary: Denies: abrasion Neurological: Denies: headache, vertigo Psychiatric: Denies: anxiety, depression Endocrine: Reports: fatigue Hematological/Lymphatic: Denies: easy bleeding, easy bruising Allergic/Immunologic: Denies: facial swelling Past Medical History - Past Medical History Attestation: Yes The following information was validated with the patient. Source: patient, old records reviewed, obtained from family, nursing notes reviewed Medical history: Reports: asthma, CHF, COPD, GERD, renal disease Surgical history: Reports: cancer surgery, hysterectomy Psychiatric history: Reports: anxiety, depression [employer]ANT history: Reports: no [employer]SULTANT history - Social History Smoking Status: Current every day smoker Smokeless Tobacco Status: No Alcohol use: Reports: none Drug use: Reports: none Physical Exam - General Limitations: physical limitation, other General appearance: alert, in no apparent distress, appears intoxicated, lethargic, cachectic - Head Head exam: atraumatic, normocephalic, normal inspection - Eye Eye exam: Present: normal appearance, PERRL, EOMI - ENT ENT exam: normal exam, normal oropharynx, mucous membranes moist - Neck Neck exam: Present: normal inspection - Chest Chest inspection: Present: normal inspection, symmetric chest wall rise - Respiratory Respiratory exam: Present: other (Diminished throughout lung wilhelm) - Cardiovascular Cardiovascular exam: Present: regular rate, normal rhythm, normal heart sounds - Abdominal Exam Abdominal exam: Present: soft, Non-Tender, normal bowel sounds. Absent: mass, pulsatile mass - Extremities Exam Extremities exam: Present: normal inspection, full ROM, normal capillary refill. Absent: tenderness, pedal edema, joint swelling, calf tenderness - Expanded Lower Extremity Exam Gait: not tested/not observed - Back Exam Back exam: Present: normal inspection, full ROM. Absent: muscle spasm - Neurological Exam Neurological exam: Present: oriented X3, CN II-XII intact, other (Arousable) - Psychiatric Psychiatric exam: Present: other (Lethargic) - Skin Skin exam: Present: warm, dry, intact, normal color Course Course Narrative: Brought in by family brought him placed in a bed siderails up patient remains lethargic but she is arousable when asked to obtain a blood gas she does consent this time patient had an ABG performed. Multiple labs done patient received an aerosol treatment patient's sleeping but arouses easily at this time Vital Signs Temperature 98.1 F 06/01/17 01:09 Pulse Rate 94 06/01/17 01:09 Respiratory Rate 16 06/01/17 01:09 Blood Pressure 99/60 06/01/17 01:09 O2 Sat by Pulse Oximetry 97 06/01/17 01:09 Temperature 98.1 F 06/01/17 04:00 Pulse Rate 94 06/01/17 04:00 Respiratory Rate 16 06/01/17 04:43 Blood Pressure 107/63 06/01/17 04:00 O2 Sat by Pulse Oximetry 91 06/01/17 04:43 Oxygen Delivery Oxygen Delivery Nasal Cannula Procedures - ABG Interpretation ABG Interpretation 1 Interpretation: normal Additional Comments: PH 7.37 PaCO2 60.4 PaO2 of 69.8 bicarbonate 35.8 sats 92.6% Altered Mental Status - Differential Diagnosis Likely: altered mental status - Medical Records Medical records reviewed: Yes I reviewed the patient's medical records. - Lab Data Lab results reviewed: Yes I reviewed the patient's lab results. Result diagrams: 06/01/17 01:33 06/01/17 01:33 Lab Results 06/01/17 06/01/17 06/01/17 Range/Units 01:33 01:33 01:33 WBC 7.5 (4.3-11.1) K/mcL RBC 3.58 L (3.82-4.97) M/mcL Hgb 11.2 L (11.5-15.4) g/dL Hct 33.9 L (35.3-44.9) % MCV 94.7 (83.0-100.0) fL MCH 31.3 (28.0-33.3) pg MCHC 33.0 (31.6-35.5) g/dL RDW 13.1 (11.5-14.5) % Plt Count 199 (140-400) K/mcL MPV 9.4 (9.4-12.4) fL Immature Gran % 0.3 (0-4) % Seg Neutrophils % 53.4 % Lymphocytes % 32.1 % Monocytes % 12.6 % Eosinophils % 1.2 % Basophils % 0.4 % Neutrophils # 4.0 (1.6-8.9) K/mcL Lymphocytes # 2.4 (0.6-4.6) K/mcL Monocytes # 0.9 (0.0-1.3) K/mcL Eosinophils # 0.1 (0.0-0.6) K/mcL Basophils # 0.0 (0.0-0.2) K/mcL PT (9.4-12.1) Seconds INR APTT 42.7 H (26.0-36.0) Seconds Sample Site ABG pH (7.32-7.45) pH Units ABG pCO2 (35-45) mmHg ABG pO2 (85-104) mmHg ABG HCO3 (21-27) mEq/L ABG Total CO2 (20-26) mEq/L ABG O2 Saturation (95-98) % ABG Base Excess (-2 to 3) mEq/L [place] Test O2 Delivery Device Blood Gas Modality Inspired O2 (1-15=lpm [id number]=%) Sodium 140 (136-145) mEq/L Potassium 3.4 L (3.5-4.5) mEq/L Chloride 97 L (98-109) mEq/L Carbon Dioxide 31 H (19-29) mEq/L BUN 18 (7-20) mg/dL Creatinine 1.31 H (0.57-1.11) mg/dL Est GFR ( Amer) 50 L (> 60) Est GFR (Non-Af Amer) 41 L (> 60) BUN/Creatinine Ratio 14 (6-26) Glucose 105 H (70-99) mg/dL Calculated Osmolality 292 (280-300) Lactic Acid (0.5-2.2) mmol/L Calcium 9.0 (8.6-10.8) mg/dL Total Bilirubin 0.4 (0.2-1.2) mg/dL AST 23 (5-34) Units/L ALT 18 (0-55) Units/L Alkaline Phosphatase 83 (38-126) Units/L Ammonia (18-72) mcmol/L Serum Total Protein 5.9 L (6.0-8.3) g/dL Albumin 2.8 L (3.5-5.0) g/dL Globulin 3.1 (2.4-3.5) g/dL Albumin/Globulin Ratio 0.9 L (1.1-2.2) TSH (0.350-4.840) mcIU/mL Urine Color (Yellow) Urine Clarity (Clear) Urine pH (5.0-8.0) pH Units Ur Specific [place] (1.010-1.025) Urine Protein (Neg-Trace) mg/dL Urine Glucose (UA) (Normal) mg/dL Urine Ketones (Negative) mg/dL Urine Blood (Negative) Urine Nitrite (Negative) Urine Bilirubin (Negative) Urine Urobilinogen (Normal) mg/dL Ur Leukocyte Esterase (Negative) Ur Culture Indicated? (NO) Urine Opiates Screen (Ugjhlv=078) ng/mL Ur Oxycodone Screen (Cutoff= 100) ng/mL Ur Barbiturates Screen (Ejzqky=687) ng/mL Ur Phencyclidine Scrn (Cutoff=25) ng/mL Ur Amphetamines Screen (Swhsup=4833) ng/mL U Benzodiazepines Scrn (Prrjai=674) ng/mL Urine Cocaine Screen (Cutoff= 300) ng/mL U Marijuana (THC) Screen (Cutoff = 50) ng/mL 06/01/17 06/01/17 06/01/17 Range/Units 01:33 01:38 01:40 WBC (4.3-11.1) K/mcL RBC (3.82-4.97) M/mcL Hgb (11.5-15.4) g/dL Hct (35.3-44.9) % MCV (83.0-100.0) fL MCH (28.0-33.3) pg MCHC (31.6-35.5) g/dL RDW (11.5-14.5) % Plt Count (140-400) K/mcL MPV (9.4-12.4) fL Immature Gran % (0-4) % Seg Neutrophils % % Lymphocytes % % Monocytes % % Eosinophils % % Basophils % % Neutrophils # (1.6-8.9) K/mcL Lymphocytes # (0.6-4.6) K/mcL Monocytes # (0.0-1.3) K/mcL Eosinophils # (0.0-0.6) K/mcL Basophils # (0.0-0.2) K/mcL PT 13.9 H (9.4-12.1) Seconds INR 1.3 APTT (26.0-36.0) Seconds Sample Site R Radial ABG pH 7.38 (7.32-7.45) pH Units ABG pCO2 60 H (35-45) mmHg ABG pO2 70 L (85-104) mmHg ABG HCO3 36 H (21-27) mEq/L ABG Total CO2 37 H (20-26) mEq/L ABG O2 Saturation 93 L (95-98) % ABG Base Excess 9 H (-2 to 3) mEq/L [place] Test Positive O2 Delivery Device Cannula Blood Gas Modality nc Inspired O2 28.0 (1-15=lpm [id number]=%) Sodium (136-145) mEq/L Potassium (3.5-4.5) mEq/L Chloride (98-109) mEq/L Carbon Dioxide (19-29) mEq/L BUN (7-20) mg/dL Creatinine (0.57-1.11) mg/dL Est GFR ( Amer) (> 60) Est GFR (Non-Af Amer) (> 60) BUN/Creatinine Ratio (6-26) Glucose (70-99) mg/dL Calculated Osmolality (280-300) Lactic Acid (0.5-2.2) mmol/L Calcium (8.6-10.8) mg/dL Total Bilirubin (0.2-1.2) mg/dL AST (5-34) Units/L ALT (0-55) Units/L Alkaline Phosphatase (38-126) Units/L Ammonia (18-72) mcmol/L Serum Total Protein (6.0-8.3) g/dL Albumin (3.5-5.0) g/dL Globulin (2.4-3.5) g/dL Albumin/Globulin Ratio (1.1-2.2) TSH 1.321 (0.350-4.840) mcIU/mL Urine Color (Yellow) Urine Clarity (Clear) Urine pH (5.0-8.0) pH Units Ur Specific [place] (1.010-1.025) Urine Protein (Neg-Trace) mg/dL Urine Glucose (UA) (Normal) mg/dL Urine Ketones (Negative) mg/dL Urine Blood (Negative) Urine Nitrite (Negative) Urine Bilirubin (Negative) Urine Urobilinogen (Normal) mg/dL Ur Leukocyte Esterase (Negative) Ur Culture Indicated? (NO) Urine Opiates Screen (Udcqsy=911) ng/mL Ur Oxycodone Screen (Cutoff= 100) ng/mL Ur Barbiturates Screen (Lzijqf=292) ng/mL Ur Phencyclidine Scrn (Cutoff=25) ng/mL Ur Amphetamines Screen (Srqydz=1922) ng/mL U Benzodiazepines Scrn (Hmfntk=471) ng/mL Urine Cocaine Screen (Cutoff= 300) ng/mL U Marijuana (THC) Screen (Cutoff = 50) ng/mL 06/01/17 06/01/17 06/01/17 Range/Units 01:50 01:50 02:03 WBC (4.3-11.1) K/mcL RBC (3.82-4.97) M/mcL Hgb (11.5-15.4) g/dL Hct (35.3-44.9) % MCV (83.0-100.0) fL MCH (28.0-33.3) pg MCHC (31.6-35.5) g/dL RDW (11.5-14.5) % Plt Count (140-400) K/mcL MPV (9.4-12.4) fL Immature Gran % (0-4) % Seg Neutrophils % % Lymphocytes % % Monocytes % % Eosinophils % % Basophils % % Neutrophils # (1.6-8.9) K/mcL Lymphocytes # (0.6-4.6) K/mcL Monocytes # (0.0-1.3) K/mcL Eosinophils # (0.0-0.6) K/mcL Basophils # (0.0-0.2) K/mcL PT (9.4-12.1) Seconds INR APTT (26.0-36.0) Seconds Sample Site ABG pH (7.32-7.45) pH Units ABG pCO2 (35-45) mmHg ABG pO2 (85-104) mmHg ABG HCO3 (21-27) mEq/L ABG Total CO2 (20-26) mEq/L ABG O2 Saturation (95-98) % ABG Base Excess (-2 to 3) mEq/L [place] Test O2 Delivery Device Blood Gas Modality Inspired O2 (1-15=lpm [id number]=%) Sodium (136-145) mEq/L Potassium (3.5-4.5) mEq/L Chloride (98-109) mEq/L Carbon Dioxide (19-29) mEq/L BUN (7-20) mg/dL Creatinine (0.57-1.11) mg/dL Est GFR ( Amer) (> 60) Est GFR (Non-Af Amer) (> 60) BUN/Creatinine Ratio (6-26) Glucose (70-99) mg/dL Calculated Osmolality (280-300) Lactic Acid 1.0 (0.5-2.2) mmol/L Calcium (8.6-10.8) mg/dL Total Bilirubin (0.2-1.2) mg/dL AST (5-34) Units/L ALT (0-55) Units/L Alkaline Phosphatase (38-126) Units/L Ammonia 34 (18-72) mcmol/L Serum Total Protein (6.0-8.3) g/dL Albumin (3.5-5.0) g/dL Globulin (2.4-3.5) g/dL Albumin/Globulin Ratio (1.1-2.2) TSH (0.350-4.840) mcIU/mL Urine Color Dark Yellow (Yellow) Urine Clarity Clear (Clear) Urine pH 5.5 (5.0-8.0) pH Units Ur Specific [place] 1.020 (1.010-1.025) Urine Protein Negative (Neg-Trace) mg/dL Urine Glucose (UA) Normal (Normal) mg/dL Urine Ketones 15 H (Negative) mg/dL Urine Blood Negative (Negative) Urine Nitrite Negative (Negative) Urine Bilirubin Moderate H (Negative) Urine Urobilinogen Normal (Normal) mg/dL Ur Leukocyte Esterase Negative (Negative) Ur Culture Indicated? NO (NO) Urine Opiates Screen (Qftvov=575) ng/mL Ur Oxycodone Screen (Cutoff= 100) ng/mL Ur Barbiturates Screen (Xxdchd=743) ng/mL Ur Phencyclidine Scrn (Cutoff=25) ng/mL Ur Amphetamines Screen (Szovyo=8418) ng/mL U Benzodiazepines Scrn (Ddfldl=843) ng/mL Urine Cocaine Screen (Cutoff= 300) ng/mL U Marijuana (THC) Screen (Cutoff = 50) ng/mL 06/01/17 Range/Units 02:03 WBC (4.3-11.1) K/mcL RBC (3.82-4.97) M/mcL Hgb (11.5-15.4) g/dL Hct (35.3-44.9) % MCV (83.0-100.0) fL MCH (28.0-33.3) pg MCHC (31.6-35.5) g/dL RDW (11.5-14.5) % Plt Count (140-400) K/mcL MPV (9.4-12.4) fL Immature Gran % (0-4) % Seg Neutrophils % % Lymphocytes % % Monocytes % % Eosinophils % % Basophils % % Neutrophils # (1.6-8.9) K/mcL Lymphocytes # (0.6-4.6) K/mcL Monocytes # (0.0-1.3) K/mcL Eosinophils # (0.0-0.6) K/mcL Basophils # (0.0-0.2) K/mcL PT (9.4-12.1) Seconds INR APTT (26.0-36.0) Seconds Sample Site ABG pH (7.32-7.45) pH Units ABG pCO2 (35-45) mmHg ABG pO2 (85-104) mmHg ABG HCO3 (21-27) mEq/L ABG Total CO2 (20-26) mEq/L ABG O2 Saturation (95-98) % ABG Base Excess (-2 to 3) mEq/L [place] Test O2 Delivery Device Blood Gas Modality Inspired O2 (1-15=lpm [id number]=%) Sodium (136-145) mEq/L Potassium (3.5-4.5) mEq/L Chloride (98-109) mEq/L Carbon Dioxide (19-29) mEq/L BUN (7-20) mg/dL Creatinine (0.57-1.11) mg/dL Est GFR ( Amer) (> 60) Est GFR (Non-Af Amer) (> 60) BUN/Creatinine Ratio (6-26) Glucose (70-99) mg/dL Calculated Osmolality (280-300) Lactic Acid (0.5-2.2) mmol/L Calcium (8.6-10.8) mg/dL Total Bilirubin (0.2-1.2) mg/dL AST (5-34) Units/L ALT (0-55) Units/L Alkaline Phosphatase (38-126) Units/L Ammonia (18-72) mcmol/L Serum Total Protein (6.0-8.3) g/dL Albumin (3.5-5.0) g/dL Globulin (2.4-3.5) g/dL Albumin/Globulin Ratio (1.1-2.2) TSH (0.350-4.840) mcIU/mL Urine Color (Yellow) Urine Clarity (Clear) Urine pH (5.0-8.0) pH Units Ur Specific [place] (1.010-1.025) Urine Protein (Neg-Trace) mg/dL Urine Glucose (UA) (Normal) mg/dL Urine Ketones (Negative) mg/dL Urine Blood (Negative) Urine Nitrite (Negative) Urine Bilirubin (Negative) Urine Urobilinogen (Normal) mg/dL Ur Leukocyte Esterase (Negative) Ur Culture Indicated? (NO) Urine Opiates Screen Positive H (Zaokvf=005) ng/mL Ur Oxycodone Screen Positive H (Cutoff= 100) ng/mL Ur Barbiturates Screen Negative (Hfzitt=560) ng/mL Ur Phencyclidine Scrn Negative (Cutoff=25) ng/mL Ur Amphetamines Screen Negative (Apalhm=5077) ng/mL U Benzodiazepines Scrn Positive H (Ywcyxr=021) ng/mL Urine Cocaine Screen Negative (Cutoff= 300) ng/mL U Marijuana (THC) Screen Negative (Cutoff = 50) ng/mL - Radiology Data Radiology results reviewed: Yes I reviewed the patient's radiology results. TPA Checklist - LKW: 3-4.5 hrs Add. Warnings/Precautions Patient/family understanding: The patient/family members have been counseled and understood the risk, benefit , and alternatives of treatment. Critical Care Time Critical Care Time: Yes Total Critical Care Time: 35 Attestation: Critical care performed:35 mins due to ams looking for etiologies ad confrence with Dr Williamson for admission and orders Time is exclusive of separately billable procedures. Time includes: direct patient care, patient reassessment, coordination of patient care, interpretation of data (laboratory data, radiology data, and respiratory data), review of patient's medical records, medical consultation and documentation of patient care. Procedures included in critical care time: Procedures excluded from critical care time:
[2017-06-01 02:08] LABS: INR 1.3; Prothrombin Time 13.9 Seconds (9.4-12.1)
[2017-06-01 02:12] LABS: Bilirubin,Urine Moderate (Negative); Blood,Urine Negative (Negative); Clarity,Urine Clear (Clear); Color,Urine Dark Yellow (Yellow); Glucose,Urine (UA) Normal (Normal); Ketones,Urine 15 mg/dL (Negative); Leukocyte Esterase,Urine Negative (Negative); Nitrite,Urine Negative (Negative); PH,Urine 5.5 pH Units (5.0-8.0); Protein,Urine Negative (Neg-Trace); Urobilinogen,Urine Normal (Normal)
[2017-06-01 02:20] LABS: Albumin 2.8 g/dL (3.5-5.0); Albumin/Globulin Ratio 0.9 (1.1-2.2); Bilirubin,Total 0.4 mg/dL (0.2-1.2); Globulin 3.1 g/dL (2.4-3.5); Potassium 3.4 mEq/L (3.5-4.5); Total Protein 5.9 g/dL (6.0-8.3)
[2017-06-01 02:21] LABS: Amphetamine Screen,Urine Negative ng/mL (Cutoff=1000); Barbiturate Screen,Urine Negative ng/mL (Cutoff=200); Benzodiazepines Screen,Urine Positive ng/mL (Cutoff=200); Cannabinoid Screen,Urine Negative ng/mL (Cutoff = 50); Cocaine Screen,Urine Negative ng/mL (Cutoff= 300); Opiate Screen,Urine Positive ng/mL (Cutoff=300); Phencyclidine Screen,Urine Negative ng/mL (Cutoff=25)
[2017-06-01] MEDS ORDERED: Naloxone 0.4 MG/ML INJ IVP PRN (04:05)
[2017-06-01] MEDS ORDERED: Albuterol 2.5 MG/3 ML NEBULIZER IH PRN (04:05)
[2017-06-01] MEDS ORDERED: Albuterol 2.5 MG/3 ML NEBULIZER IH SCH (04:05)
[2017-06-01] MEDS ORDERED: NON-FORMULARY MEDICATION 1 EACH EACH (Oxygen [Oxygen] 1 EACH) SCH (04:05)
[2017-06-01] MEDS ORDERED: Ondansetron ODT 4 MG TAB.RAPDIS SL PRN (04:05)
[2017-06-01] MEDS ORDERED: Ipratropium/Albuterol Neb 3 ML IH SCH (05:00)
[2017-06-01] MEDS: methylPREDNISolone 125 MG/2 ML VIAL IVP SCH ×2 (05:46→14:19)
[2017-06-01] MEDS ORDERED: Nicotine 14 MG PATCH.TD24 TD SCH (09:00)
[2017-06-01] MEDS ORDERED: Tiotropium 18 MCG inhalation IH SCH (09:00)
[2017-06-01] MEDS ORDERED: Aspirin 325 MG TABLET PO SCH (09:00)
[2017-06-01] MEDS ORDERED: ALPRAZolam 1 MG TABLET PO SCH (09:00)
[2017-06-01] MEDS ORDERED: Lisinopril 20 MG TABLET PO SCH (09:00)
[2017-06-01] MEDS ORDERED: Lactobacillus 1 EACH CAP.SPRINK PO SCH (09:00)
[2017-06-01] MEDS ORDERED: Bumetanide 1 MG TABLET PO SCH (09:00)
[2017-06-01] MEDS ORDERED: levoFLOXacin 500 MG TABLET PO SCH (09:00)
[2017-06-01] MEDS: ALPRAZolam 0.25 MG TABLET PO SCH ×2 (09:06→14:19)
[2017-06-01] MEDS ORDERED: Budesonide/Formoterol 160/4.5 MDI IH SCH (10:00)
[2017-06-01 10:46] VITALS: BP 107/66
--- NOTE | 2017-06-01 14:07 | Internal Med History&Physical ---
Date of Encounter: 06/01/17 Time of Encounter: 13:45 Assessment and Plan (1) Lethargy Current visit: Yes Status: Resolved Etiology not determined. Now resolved. She wishes to be discharged home. Internal Medicine - H&P: HPI Chief complaint: Lethargy Admitted From: Home Plans for Post Hospital Care: Home History of present illness: Ms. Newell is a 61 year old female who came to the emergency room after family noted there was significant lethargy. She reports she had not slept well the night before and had used her oxygen some during the daytime which is not unusual for her. She denies taking any additional doses of Xanax or Percocet. She was evaluated in emergency room and admitted to [facility] floor for ongoing care needs She states she feels back to her baseline now and wishes to be discharged home. She has been hospitalized 2 times in the past month at [facility] with most recent hospitalization approximately 3 weeks ago for exacerbation of COPD. Her respiratory history is significant for having smoked since age 16 up to 2 packs per day. She had PFTs at [facility] approximately 2007 and was told she had COPD. She wears oxygen at bedtime and when necessary during the daytime. She has not had workup for [facility]. She had chest CT during the March 2017 hospitalization which showed nodules with recommended follow-up in 3-6 months. Past Med Surg Social Fam HX - Past Medical History Medical history: asthma, CHF, COPD, GERD, renal disease Psychiatric history: anxiety, depression - Past Surgical History Surgical History: cancer surgery, hysterectomy - Social History Smoking Status: Current every day smoker Packs per day: 1 Smokeless Tobacco Status: No Alcohol use: none Drug use: none - Family History Daughter Adopted: No Family Member Ethnicity: Non- Living Status: Still Living Hx Family Cardiac Disorders: No Hx Family Respiratory Disorders: Yes (asthma) Hx Family Cancer: No Hx Family GI Disorders: No Hx Family Endocrine Disorder: No Hx Family Neuromuscular Disorders: No Hx Family Neurologic Disorders: No Hx Family HEENT Disorders: No Hx Family Autoimmune Disorders: No Internal Medicine - H&P: Meds Alprazolam [Xanax] 1 mg PO TID 03/10/15 [History] OxyCODONE/APAP 10/325 [Percocet 10/325] 1 each PO Q4-6H PRN 03/10/15 [History] Oxygen 1 each .ROUTE AD 03/10/15 [History] Aspirin 325 mg PO DAILY #15 tablet 06/07/16 [Rx] Omeprazole [PriLOSEC] 40 mg PO DAILY #15 cap 06/07/16 [Rx] Alprazolam [Xanax] 2 mg PO HS 03/18/17 [History] Albuterol Neb [Proventil Neb] 2.5 mg IH Q2H 05/02/17 [History] Budesonide/Formoterol 160/4.5 [Symbicort 160/4.5] 2 puff IH DAILY 05/02/17 [ History] Tiotropium [Spiriva] 18 mcg IH DAILY 05/02/17 [History] Lisinopril [Zestril] 20 mg PO DAILY #15 tablet 05/03/17 [Rx] Potassium Chloride 10 meq PO DAILY #15 tab.er.prt 05/03/17 [Rx] Bumetanide [Bumex] 0.5 mg PO DAILY #15 tablet 05/09/17 [Rx] Lactobacillus [Culturelle] 1 each PO BID #10 cap.sprink 05/09/17 [Rx] levoFLOXacin [Levaquin] 500 mg PO DAILY #5 tablet 05/09/17 [Rx] predniSONE [PredniSONE] 10 mg PO BIDWM #10 tablet 05/09/17 [Rx] 3 Allergy/AdvReac Type Severity Reaction Status Date / Time No Known Allergies Allergy Verified 05/07/17 20:09 All Systems PM: A 10-system review of systems was performed and is negative for pertinent findings except as documented above in the HPI. Review of systems: Review of systems from her hospitalization 05/08/2017 were reviewed and revised as below Gen.: Her weight has decreased from 69.485 kg on 05/03/2017 to 66.366 kg today. Cardiovascular: She denies hypertension KS heart failure DVT or pulmonary embolus. She does not get chest pain on exertion. She thinks she had a Regadenoson EST approximately 10 years ago which was unremarkable. Respiratory: As per history of present illness GI: She denies disorders of her liver gallbladder or exocrine pancreas. She had colon polyps diagnosed approximately 2011. : She has had hysterectomy. She has CKD stage 2-3 but does not follow with a crusher. Endocrine: She has hyperlipidemia. She has DM 2 and her most recent hemoglobin A1c was 6.8% on 03/19/2017. She has had suppressed TSH in the past but that has resolved. Hematology/oncology: She had cervical cancer with curative hysterectomy approximately 1981. She denies other internal malignancies or anemia. Psychiatric: She has anxiety and depression. [place] skeletal: She has chronic low back pain and degenerative disc disease. She denies osteoporosis or significant arthritis - Constitutional Vitals: Temp Pulse Resp BP Pulse Ox 98.3 F 91 18 107/66 93 06/01/17 10:44 06/01/17 10:44 06/01/17 10:44 06/01/17 10:44 06/01/17 10:44 Exam: Gen.: She is a well developed well-nourished female who appears in no acute distress. HEENT: Head is atraumatic normocephalic. Eyes: EOMI. There is no scleral icterus. Mouth: Mucosa is moist. Neck: Supple and nontender. There is no thyromegaly or adenopathy noted. Heart: Regular with rate 96/m. No murmurs or gallops are heard. Lungs: She has a few scattered rhonchi. No wheezes or crackles are heard. Abdomen: Soft and nontender. No masses or guarding are noted. Extremities: There is 1-2+ edema of the dorsum of feet and lower anterior shins bilaterally. Dorsalis pedis and posttibial pulses are nonpalpable. Neurologic: Mental status: She is talkative and a good historian. Cranial nerves: Smile is symmetric. Forehead wrinkles bilaterally. Tongue protrudes midline. EOMI. Motor: There is no pronator drift. Cerebellar: Finger to nose is intact bilaterally. Skin: Warm and dry Internal Med - H&P Results - Labs CBC & Chem 7: 06/01/17 01:33 06/01/17 01:33
--- NOTE | 2017-06-01 14:14 | Discharge Summary ---
Date of Encounter: 06/01/17 Time of Encounter: 13:45 - Discharge Diagnosis (1) Lethargy Priority: Primary Status: Resolved - Discharge Medications Home Medications: Alprazolam [Xanax] 1 mg PO TID 03/10/15 [History] OxyCODONE/APAP 325 [Percocet 10325] 1 each PO Q4-6H PRN 03/10/15 [History] Oxygen 1 each .ROUTE AD 03/10/15 [History] Aspirin 325 mg PO DAILY #15 tablet 06/07/16 [Rx] Omeprazole [PriLOSEC] 40 mg PO DAILY #15 cap 06/07/16 [Rx] Alprazolam [Xanax] 2 mg PO HS 03/18/17 [History] Albuterol Neb [Proventil Neb] 2.5 mg IH Q2H 05/02/17 [History] Budesonide/Formoterol 160/4.5 [Symbicort 160/4.5] 2 puff IH DAILY 05/02/17 [ History] Tiotropium [Spiriva] 18 mcg IH DAILY 05/02/17 [History] Potassium Chloride 10 meq PO DAILY #15 tab.er.prt 05/03/17 [Rx] Bumetanide [Bumex] 0.5 mg PO DAILY #15 tablet 05/09/17 [Rx] Allergies/Adverse Reactions: 3 Allergy/AdvReac Type Severity Reaction Status Date / Time No Known Allergies Allergy Verified 05/07/17 20:09 Date of admission: 06/01/17 03:15 Primary care physician: Alfred Cohen MD Consults: 06/01/17 08:59 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 Newell is a 61 year old female who came to the emergency room after family noted there was significant lethargy. She reports she had not slept well the night before and had used her oxygen some during the daytime which is not unusual for her. She denies taking any additional doses of Xanax or Percocet. She was evaluated in emergency room and admitted to [facility] for ongoing care needs. Initial orders were written by the emergency room physician. I saw her the afternoon of June 01 and performed the history physical and discharge. Her Xanax was initially held and then restarted back at a lower dose. By the time I saw her she appeared back to her baseline mental status. She denied pain or dyspnea. She wished to be discharged which I felt was reasonable. She will follow with her PCP Dr. Cohen within 1 week. I encouraged her to decrease her dose of Xanax as tolerated. I milian discontinue her lisinopril since her blood pressure was borderline low during hospitalization she had worsened azotemia. Dr. Cohen can monitor her pressure and make further adjustment as needed. He can order a follow-up chest CT in a few weeks as recommended by March [address] report. - Time Spent with Patient Total time spent providing and/or coordinating discharge services: - Constitutional Vitals: Temp Pulse Resp BP Pulse Ox 98.3 F 91 18 107/66 93 06/01/17 10:44 06/01/17 10:44 06/01/17 10:44 06/01/17 10:44 06/01/17 10:44
== END 2017-06-01 14:35 | disposition home or self-care (01) ==
LOC: EMEROOPIK 01:08 → INPPIK 01:08
PROVIDERS: ADMIT Internal Medicine; ATTEND Internal Medicine

== ENCOUNTER 2017-08-14 14:26 | Observation (INO) ==
[2017-08-14] MEDS ORDERED: Albuterol 2.5 MG/3 ML NEBULIZER IH ONE (14:39)
[2017-08-14] MEDS ORDERED: methylPREDNISolone 125 MG/2 ML VIAL IVP ONE (14:39)
[2017-08-14] MEDS ORDERED: Azithromycin 500 MG in D5% in Water 250 ML IVPB ONE (14:39)
[2017-08-14] MEDS ORDERED: cefTRIAXone 1,000 MG in Water for inj. (sterile) 20 ML 10 ML IVP ONE (14:39)
[2017-08-14] MEDS ORDERED: 0.9 % Sodium Chloride 500 ML IVC ONE (14:41)
--- NOTE | 2017-08-14 14:41 | Emergency Department Note ---
Disposition Clinical Impression: Acute exacerbation of chronic obstructive airways disease Disposition: Admitted As Inpatient Condition: Fair SOB HPI - General Chief Complaint: ED Shortness of Breath/Dyspnea Stated Complaint: short of breath Time Seen by Provider: 08/14/17 14:32 Source: patient Mode of arrival: private vehicle Limitations: no limitations, physical limitation Nursing Notes Reviewed: Yes Vital Signs Reviewed: Yes - History of Present Illness Patient reports she has had increased shortness of breath for at least 2-3 days. This has been much worse since this morning prompting her to come in for evaluation. She states she has had a cough productive of some occasional clear phlegm. She denies fevers or chills. She does report occasional sharp stabbing mid anterior chest pain is worse with cough or deep breath. She describes these as being "occasional" not very often". Pain does not radiate into her jaw, back or arms. She denies associated diaphoresis or nausea. She has been on her normal medicines including an nebulized treatment at 1:30. She has lower [place] swelling, immobilization or injury. She denies any palpitations, abdominal pain, vomiting or diarrhea. She denies any known ill exposures or respiratory irritants to provoke this is episode. She states that she has been short of breath so that she "could not smoke for 2 days". Pt Subjective Complaint: shortness of breath, cough Onset (ago): day(s) Severity: moderate, severe Consistency/Duration: gradually worsening Improves with: oxygen, bronchodilators Worsens with: lying flat, exertion, coughing Known history of: COPD Associated symptoms: Reports: chest pain, pain with inspiration, cough, wheezing , sputum production, orthopnea. Denies: fever, lower extremity pain, polyuria, polydipsia, parasthesias, palpitations, hemoptysis, diaphoresis, nausea/vomiting , syncope, abdominal pain, rash Treatment prior to arrival: oxygen, bronchodilator Cough present: Yes Cough Description: Voluntary, Moist, Hacking, Wheezy Cough Frequency: Intermittent Sputum production: Yes Sputum Amount: Scant Sputum Color: Clear - Related Data Home Medications Medication Instructions Recorded Confirmed Alprazolam [Xanax] 1 mg PO TID 03/10/15 08/14/17 OxyCODONE/APAP 10/325 [Percocet 1 each PO Q4-6H PRN 03/10/15 08/14/17 10/325] Oxygen 1 each .ROUTE AD 03/10/15 08/14/17 Alprazolam [Xanax] 2 mg PO HS 03/18/17 08/14/17 Albuterol Neb [Proventil Neb] 2.5 mg IH Q2H 05/02/17 08/14/17 Budesonide/Formoterol 160/4.5 2 puff IH DAILY 05/02/17 08/14/17 [Symbicort 160/4.5] Previous Rx's Medication Instructions Recorded Aspirin 325 mg PO DAILY #15 tablet 06/07/16 Omeprazole [PriLOSEC] 40 mg PO DAILY #15 cap 06/07/16 Allergies Allergy/AdvReac Type Severity Reaction Status Date / Time No Known Allergies Allergy Verified 05/07/17 20:09 All systems ED: reviewed and negative except as stated. Past Medical History - Past Medical History Attestation: Yes The following information was validated with the patient. Source: patient, old records reviewed, nursing notes reviewed Medical history: Reports: asthma, CHF, COPD, GERD, renal disease Surgical history: Reports: cancer surgery, hysterectomy Psychiatric history: Reports: anxiety, depression ELECTRICAL AND RADIO MECHANIC history: Reports: no ELECTRICAL AND RADIO MECHANIC history - Social History Smoking Status: Current every day smoker Smokeless Tobacco Status: No Alcohol use: Reports: none Drug use: Reports: none Physical Exam - General Limitations: no limitations General appearance: alert, anxious, in distress (Dyspneic) - Head Head exam: atraumatic, normocephalic, normal inspection - Eye Eye exam: Present: normal appearance, PERRL, EOMI. Absent: scleral icterus, conjunctival injection - ENT ENT exam: normal exam, normal oropharynx, mucous membranes moist - Neck Neck exam: Present: normal inspection, full ROM, trachea midline - Chest Chest inspection: Present: normal inspection, symmetric chest wall rise, tenderness - Respiratory Respiratory exam: Present: respiratory distress, wheezes, prolonged expiratory phase, other (Pursed lip breathing.) - Cardiovascular Cardiovascular exam: Present: regular rate, normal rhythm, tachycardia, normal heart sounds - Abdominal Exam Abdominal exam: Present: soft, Non-Tender, normal bowel sounds. Absent: tenderness, distention, guarding, rebound, rigidity - Extremities Exam Extremities exam: Present: normal inspection, full ROM, normal capillary refill. Absent: tenderness, pedal edema, calf tenderness - Expanded Lower Extremity Exam Neurovascular/Tendon exam: Present: normal capillary refill. Absent: motor deficit, sensory deficit, tendon deficit Gait: not tested/not observed - Back Exam Back exam: Present: normal inspection, full ROM. Absent: tenderness - Neurological Exam Neurological exam: Present: alert, oriented X3 - Psychiatric Psychiatric exam: Present: normal affect, anxious - Skin Skin exam: Present: warm, dry, intact, normal color. Absent: cyanosis, diaphoresis, pallor Course Course Narrative: 1555: A page chest been placed to Dr. Williamson for continuation of respiratory protocol with inpatient observation. Vital Signs Temperature 98.8 F 08/14/17 14:28 Pulse Rate 119 08/14/17 14:28 Respiratory Rate 20 08/14/17 14:28 Blood Pressure 163/95 08/14/17 14:28 O2 Sat by Pulse Oximetry 96 08/14/17 14:28 Temperature 98.8 F 08/14/17 14:28 Pulse Rate 105 08/14/17 15:56 Respiratory Rate 20 08/14/17 15:56 Blood Pressure 171/96 08/14/17 15:56 O2 Sat by Pulse Oximetry 97 08/14/17 15:56 Oxygen Delivery Oxygen Delivery Nasal Cannula Shortness of Breath/Dyspnea - Differential Diagnosis Likely: acute exacerbation of chronic obstructive airways disease, congestive heart failure, pneumonia, asthma with exacerbation - Medical Records Medical records reviewed: Yes I reviewed the patient's medical records. - Lab Data Lab results reviewed: Yes I reviewed the patient's lab results. Result diagrams: 08/14/17 14:50 08/14/17 14:50 Lab Results 08/14/17 08/14/17 08/14/17 Range/Units 14:50 14:50 14:50 WBC 10.6 (4.3-11.1) K/mcL RBC 4.15 (3.82-4.97) M/mcL Hgb 12.9 (11.5-15.4) g/dL Hct 39.4 (35.3-44.9) % MCV 94.9 (83.0-100.0) fL MCH 31.1 (28.0-33.3) pg MCHC 32.7 (31.6-35.5) g/dL RDW 14.6 H (11.5-14.5) % Plt Count 104 L (140-400) K/mcL MPV 9.0 L (9.4-12.4) fL Immature Gran % 0.5 (0-4) % Seg Neutrophils % 72.3 % Lymphocytes % 20.4 % Monocytes % 6.2 % Eosinophils % 0.5 % Basophils % 0.1 % Neutrophils # 7.7 (1.6-8.9) K/mcL Lymphocytes # 2.2 (0.6-4.6) K/mcL Monocytes # 0.7 (0.0-1.3) K/mcL Eosinophils # 0.1 (0.0-0.6) K/mcL Basophils # 0.0 (0.0-0.2) K/mcL PT 12.4 H (9.4-12.1) Seconds INR 1.1 APTT 28.8 (26.0-36.0) Seconds Sodium 142 (136-145) mEq/L Potassium 3.6 (3.5-4.5) mEq/L Chloride 106 (98-109) mEq/L Carbon Dioxide 27 (19-29) mEq/L BUN 21 H (7-20) mg/dL Creatinine 0.96 (0.57-1.11) mg/dL Est GFR ( Amer) > 60 (> 60) Est GFR (Non-Af Amer) 59 L (> 60) BUN/Creatinine Ratio 22 (6-26) Glucose 188 H (70-99) mg/dL Calculated Osmolality 302 H (280-300) Lactic Acid (0.5-2.2) mmol/L Calcium 9.0 (8.6-10.8) mg/dL Troponin I (0-0.03) ng/mL B-Natriuretic Peptide (0-100) pg/mL 08/14/17 08/14/17 08/14/17 Range/Units 14:50 14:50 14:50 WBC (4.3-11.1) K/mcL RBC (3.82-4.97) M/mcL Hgb (11.5-15.4) g/dL Hct (35.3-44.9) % MCV (83.0-100.0) fL MCH (28.0-33.3) pg MCHC (31.6-35.5) g/dL RDW (11.5-14.5) % Plt Count (140-400) K/mcL MPV (9.4-12.4) fL Immature Gran % (0-4) % Seg Neutrophils % % Lymphocytes % % Monocytes % % Eosinophils % % Basophils % % Neutrophils # (1.6-8.9) K/mcL Lymphocytes # (0.6-4.6) K/mcL Monocytes # (0.0-1.3) K/mcL Eosinophils # (0.0-0.6) K/mcL Basophils # (0.0-0.2) K/mcL PT (9.4-12.1) Seconds INR APTT (26.0-36.0) Seconds Sodium (136-145) mEq/L Potassium (3.5-4.5) mEq/L Chloride (98-109) mEq/L Carbon Dioxide (19-29) mEq/L BUN (7-20) mg/dL Creatinine (0.57-1.11) mg/dL Est GFR ( Amer) (> 60) Est GFR (Non-Af Amer) (> 60) BUN/Creatinine Ratio (6-26) Glucose (70-99) mg/dL Calculated Osmolality (280-300) Lactic Acid 2.1 (0.5-2.2) mmol/L Calcium (8.6-10.8) mg/dL Troponin I 0.03 (0-0.03) ng/mL B-Natriuretic Peptide 199 H (0-100) pg/mL - Radiology Data Radiology results reviewed: Yes I reviewed the patient's radiology results. Single view chest x-ray is performed. This does not demonstrate evidence for infiltrate, effusion, pneumothorax, foreign body or heart failure. Patient's hyperexpanded consistent with emphysema/COPD. The cardiac silhouette is normal. I do not see abnormality to the osseous structures of the chest. This is on my interpretation. Impressions Chest X-Ray 08/14/17 14:40 IMPRESSION: No acute cardiopulmonary disease. D/ / Sven Hernandez MD / Sven Hernandez MD Interpreting Provider: Sven Hernandez MD - EKG Data EKG attestation: Yes I reviewed and interpreted this EKG. EKG shows normal: Reports: sinus rhythm, axis, intervals, QRS complexes, ST-T waves Rate: Reports: tachycardia (107) Interpretation: Reports: no acute changes, nonspecific ST-T wave changes
[2017-08-14] MEDS ORDERED: 0.9 % Sodium Chloride 1,000 ML IVC SCH ×2 (14:45→16:25)
[2017-08-14 15:01] LABS: Basophils % 0.1 %; Eosinophils # 0.1 K/mcL (0.0-0.6); Eosinophils % 0.5 %; Hematocrit 39.4 % (35.3-44.9); Hemoglobin 12.9 g/dL (11.5-15.4); Immature Granulocytes % 0.5 % (0-4); Lymphocytes # 2.2 K/mcL (0.6-4.6); Lymphocytes % 20.4 %; Mean Corpuscular HGB Conc 32.7 g/dL (31.6-35.5); Mean Corpuscular Hemoglobin 31.1 pg (28.0-33.3); Mean Corpuscular Volume 94.9 fL (83.0-100.0); Monocytes # 0.7 K/mcL (0.0-1.3); Monocytes % 6.2 %; Neutrophils # 7.7 K/mcL (1.6-8.9); Platelet Count 104 K/mcL (140-400); Red Blood Count 4.15 M/mcL (3.82-4.97); Red Cell Distribution Width 14.6 % (11.5-14.5); Segmented Neutrophils % 72.3 %
[2017-08-14 15:05] LABS: INR 1.1; Prothrombin Time 12.4 Seconds (9.4-12.1)
[2017-08-14 15:08] LABS: Activated Partial Thrombo Time 28.8 Seconds (26.0-36.0)
[2017-08-14 15:13] LABS: BUN/Creatinine Ratio 22 (6-26); Blood Urea Nitrogen 21 mg/dL (7-20); Carbon Dioxide 27 mEq/L (19-29); Chloride 106 mEq/L (98-109); Glucose 188 mg/dL (70-99); Osmolality,Calculated 302 (280-300); Potassium 3.6 mEq/L (3.5-4.5); Sodium 142 mEq/L (136-145); eGFR For African Americans > 60 (> 60); eGFR For Non-African Americans 59 (> 60)
[2017-08-14] MEDS ORDERED: Acetaminophen 325 MG TABLET PO PRN (16:25)
[2017-08-14] MEDS ORDERED: MOM Conc 10 ML UD.LIQ PO PRN (16:25)
[2017-08-14] MEDS ORDERED: Ondansetron 4 MG/2 ML VIAL IVP PRN (16:25)
[2017-08-14] MEDS ORDERED: Naloxone 0.4 MG/ML INJ IVP PRN (16:25)
[2017-08-14] MEDS ORDERED: ALPRAZolam 1 MG TABLET PO SCH (16:30)
[2017-08-14] MEDS: predniSONE 20 MG TABLET PO SCH (16:47)
[2017-08-14] MEDS: *HR* OxyCODONE/APAP 10/325 TABLET PO PRN ×2 (16:54→21:18)
[2017-08-14] MEDS: Ipratropium/Albuterol Neb 3 ML IH SCH ×2 (17:36→22:20)
[2017-08-14] MEDS ORDERED: ALPRAZOLAM 2 MG PO SCH (21:00)
[2017-08-14] MEDS: ALPRAZolam 1 MG TABLET PO SCH (21:12)
[2017-08-15] MEDS: *HR* OxyCODONE/APAP 10/325 TABLET PO PRN ×5 (04:36→20:27)
[2017-08-15] MEDS: Ipratropium/Albuterol Neb 3 ML IH SCH ×2 (04:54→10:15)
[2017-08-15] MEDS: predniSONE 20 MG TABLET PO SCH ×2 (08:13→16:48)
[2017-08-15] MEDS: ALPRAZolam 1 MG TABLET PO SCH ×3 (08:14→20:27)
[2017-08-15] MEDS: Aspirin 325 MG TABLET PO SCH (08:14)
--- NOTE | 2017-08-15 12:05 | Internal Med History&Physical ---
Date of Encounter: 08/15/17 Time of Encounter: 11:40 Assessment and Plan (1) Acute exacerbation of chronic obstructive airways disease Current visit: Yes Status: Acute She has been started on Rocephin and Zithromax with oral prednisone. Further workup will be done as needed. Internal Medicine - H&P: HPI Chief complaint: Cough and dyspnea Admitted From: Emergency Dept Plans for Post Hospital Care: Home History of present illness: Ms. Newell is a 62 year old female who came to emergency room stating she had onset of worsening dyspnea with cough productive of thick white mucus 3 days prior to coming to emergency room. She also had some discomfort in her chest that she describes as a pressure/stabbing sensation. She was evaluated in emergency room and felt to have exacerbation of COPD. She was admitted to [facility] floor for ongoing care needs. She states her breathing is improved but she does not feel back to her baseline or ready for discharge home. She was hospitalized at [facility] most recently May 2017. She has been hospitalized numerous times over the past few years generally with exacerbation of COPD. Her respiratory history is significant for having smoked since age 16 up to 2 packs per day. She had PFTs at [facility] approximately 2007 and was told she had COPD. She wears oxygen at bedtime and when necessary during the daytime. She has not had workup for DUARTE. She had chest CT 07/12/2017 which showed no acute pathology. Past Med Surg Social Fam HX - Past Medical History Medical history: asthma, CHF, COPD, GERD, renal disease Psychiatric history: anxiety, depression - Past Surgical History Surgical History: cancer surgery, hysterectomy - Social History Smoking Status: Current every day smoker Smokeless Tobacco Status: No Alcohol use: none Drug use: none - Family History Daughter Adopted: No Family Member Ethnicity: Non- Living Status: Still Living Hx Family Cardiac Disorders: No Hx Family Respiratory Disorders: Yes (asthma) Hx Family Cancer: No Hx Family GI Disorders: No Hx Family Endocrine Disorder: No Hx Family Neuromuscular Disorders: No Hx Family Neurologic Disorders: No Hx Family HEENT Disorders: No Hx Family Autoimmune Disorders: No Internal Medicine - H&P: Meds Alprazolam [Xanax] 1 mg PO TID 03/10/15 [History] OxyCODONE/APAP 10/325 [Percocet 10/325] 1 each PO Q4-6H PRN 03/10/15 [History] Oxygen 1 each .ROUTE AD 03/10/15 [History] Aspirin 325 mg PO DAILY #15 tablet 06/07/16 [Rx] Omeprazole [PriLOSEC] 40 mg PO DAILY #15 cap 06/07/16 [Rx] Alprazolam [Xanax] 2 mg PO HS 03/18/17 [History] Albuterol Neb [Proventil Neb] 2.5 mg IH Q2H 05/02/17 [History] Budesonide/Formoterol 160/4.5 [Symbicort 160/4.5] 2 puff IH DAILY 05/02/17 [ History] 3 Allergy/AdvReac Type Severity Reaction Status Date / Time No Known Allergies Allergy Verified 05/07/17 20:09 All Systems PM: A 10-system review of systems was performed and is negative for pertinent findings except as documented above in the HPI. Review of systems: Review of systems from her [facility] hospitalization May 2017 were reviewed and revised as below Gen.: Her weight has decreased from 69.485 kg on 05/03/2017 to 66.5 kg today. Cardiovascular: She denies hypertension PA heart failure DVT or pulmonary embolus. She does not get chest pain on exertion. She thinks she had a Regadenoson EST approximately 2006 which was unremarkable. Respiratory: As per history of present illness GI: She denies disorders of her liver gallbladder or exocrine pancreas. She had colon polyps diagnosed approximately 2011. : She has had hysterectomy. She has CKD stage 2-3 but does not follow with a belt turner. Endocrine: She has hyperlipidemia. She has DM 2 and her most recent hemoglobin A1c was 6.8% on 03/19/2017. She has had suppressed TSH in the past but that has resolved. Hematology/oncology: She had cervical cancer with curative hysterectomy approximately 1981. She denies other internal malignancies or anemia. Psychiatric: She has anxiety and depression. [place] skeletal: She has chronic low back pain and degenerative disc disease. She denies osteoporosis or significant arthritis - Constitutional Vitals: Temp Pulse Resp BP Pulse Ox 98.4 F 87 16 129/69 98 08/15/17 07:37 08/15/17 07:37 08/15/17 07:37 08/15/17 07:37 08/15/17 07:37 Exam: Gen.: She is a well-developed well-nourished female resting comfortably on the side of the bed. HEENT: Head is atraumatic and normocephalic. Eyes: EOMI. There is no scleral icterus. She has bilateral mild exophthalmos. Mouth: Mucosa is moist. Neck: Supple and nontender. There is no thyromegaly or adenopathy noted. Heart: Regular without murmurs gallops or ectopics Lungs: No wheezes or crackles are heard. She has diminished breath sounds diffusely Abdomen: Soft and nontender. No masses or guarding are noted. Extremities: There is no cyanosis edema or clubbing noted. Dorsalis pedis and posterior tibial pulses are trace to 1+ palpable bilaterally. Neurologic: Mental status: She is talkative and a good historian. Cranial nerves: Smile is symmetric. Forehead wrinkles bilaterally. Tongue protrudes midline. EOMI. Motor: There is no pronator drift. Cerebellar: Finger to nose is intact bilaterally. Skin: Warm and dry Internal Med - H&P Results - Labs CBC & Chem 7: 08/14/17 14:50 08/14/17 14:50 - VTE Documentation of Mechanical Device: Graduated compression elastic hosiery
[2017-08-15] MEDS ORDERED: Azithromycin 500 MG in D5% in Water 250 ML IVPB SCH (15:00)
[2017-08-15] MEDS: Albuterol 2.5 MG/3 ML NEBULIZER IH PRN (22:34)
[2017-08-16] MEDS: *HR* OxyCODONE/APAP 10/325 TABLET PO PRN ×3 (01:05→09:38)
[2017-08-16 07:33] VITALS: BP 145/70
[2017-08-16] MEDS: predniSONE 20 MG TABLET PO SCH (08:47)
[2017-08-16] MEDS: Aspirin 325 MG TABLET PO SCH (08:47)
[2017-08-16] MEDS: ALPRAZolam 1 MG TABLET PO SCH (08:48)
[2017-08-16] MEDS: Albuterol 2.5 MG/3 ML NEBULIZER IH PRN (09:23)
--- NOTE | 2017-08-16 09:56 | Discharge Summary ---
Date of Encounter: 08/16/17 Time of Encounter: 09:45 - Discharge Diagnosis (1) Acute exacerbation of chronic obstructive airways disease Priority: Primary Status: Acute - Discharge Medications Prescriptions: Cefuroxime PO [Ceftin] 500 mg PO Q12HR #6 tablet Azithromycin [Zithromax] 250 mg PO DAILY #3 tablet Lactobacillus [Culturelle] 1 each PO BID #6 cap.sprink predniSONE [PredniSONE] 10 mg PO BIDWM #6 tablet Home Medications: Alprazolam [Xanax] 1 mg PO TID 03/10/15 [History] OxyCODONE/APAP 10/325 [Percocet 10/325] 1 each PO Q4-6H PRN 03/10/15 [History] Oxygen 1 each .ROUTE AD 03/10/15 [History] Aspirin 325 mg PO DAILY #15 tablet 06/07/16 [Rx] Omeprazole [PriLOSEC] 40 mg PO DAILY #15 cap 06/07/16 [Rx] Alprazolam [Xanax] 2 mg PO HS 03/18/17 [History] Albuterol Neb [Proventil Neb] 2.5 mg IH Q2H 05/02/17 [History] Budesonide/Formoterol 160/4.5 [Symbicort 160/4.5] 2 puff IH DAILY 05/02/17 [ History] Azithromycin [Zithromax] 250 mg PO DAILY #3 tablet 08/16/17 [Rx] Cefuroxime PO [Ceftin] 500 mg PO Q12HR #6 tablet 08/16/17 [Rx] Lactobacillus [Culturelle] 1 each PO BID #6 cap.sprink 08/16/17 [Rx] predniSONE [PredniSONE] 10 mg PO BIDWM #6 tablet 08/16/17 [Rx] Allergies/Adverse Reactions: 3 Allergy/AdvReac Type Severity Reaction Status Date / Time No Known Allergies Allergy Verified 05/07/17 20:09 Date of admission: 08/14/17 16:06 Primary care physician: Alfred Cohen MD - Patient Status Disposition: Home, Self-Care Condition: Fair Functional capacity at discharge: independent ambulation Overall status at discharge: patient is progressing back to baseline - Discharge Instructions Follow Up With: Alfred Cohen MD [Primary Care Provider] - 1 week - Diet and Activity Activity: resume usual activities as tolerated Diet: advance to your usual diet Hospital course: Ms. Newell is a 62 year old female who came to emergency room stating she had onset of worsening dyspnea with cough productive of thick white mucus 3 days prior to coming to emergency room. She also had some discomfort in her chest that she describes as a pressure/stabbing sensation. She was evaluated in emergency room and felt to have exacerbation of COPD. She was admitted to [facility] floor for ongoing care needs. Initial orders were written by the emergency room physician. I saw her on August 15 and performed a history and physical. She was started on Rocephin, Zithromax and prednisone. She had further clinical improvement and when I saw her on August 16 she felt stable for discharge home. She will continue with antibiotic and probiotic for 3 additional days at discharge. I encouraged her strongly to be a nonsmoker. She will follow with her PCP Dr. Cohen within 1 week. - Time Spent with Patient Total time spent providing and/or coordinating discharge services: - Constitutional Vitals: Temp Pulse Resp BP Pulse Ox 98.1 F 87 14 145/70 97 08/16/17 07:29 08/16/17 07:29 08/16/17 09:23 08/16/17 07:29 08/16/17 09:23 - VTE Documentation of Mechanical Device: Graduated compression elastic hosiery
--- NOTE | 2017-08-16 14:05 | Electrocardiograph Report ---
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
== END 2017-08-16 12:39 | disposition home or self-care (01) ==
LOC: INPPIK 14:26 → EMEROOPIK 14:26 → INPPIK 16:17
PROVIDERS: ADMIT Internal Medicine; ATTEND Internal Medicine

== ENCOUNTER 2018-09-12 14:02 | Observation (INO) ==
[2018-09-12] MEDS ORDERED: Ipratropium/Albuterol Neb 3 ML IH ONE (14:11)
[2018-09-12] MEDS ORDERED: methylPREDNISolone 125 MG/2 ML VIAL IVP ONE (14:11)
--- NOTE | 2018-09-12 14:14 | Emergency Department Note ---
Disposition Clinical Impression: Acute exacerbation of chronic obstructive airways disease Disposition: Admitted As Inpatient Condition: Good General Adult HPI - General Chief complaint: ED Shortness of Breath/Dyspnea Stated complaint: sob Time Seen by Provider: 09/12/18 14:05 Source: patient, other (family doctor) Mode of arrival: EMS Limitations: no limitations Nursing Notes Reviewed: Yes Vital Signs Reviewed: Yes - History of Present Illness HPI Narrative: Patient arrives by squad after being seen her primary care physician's office for shortness of breath. They gave her breathing treatments there and call the squad to bring her here. Patient says she has been sick for about a week but last night was the worst. She denies any fever but complains of shortness of breath. There is been no nausea vomiting. Her chest is a little sore mostly from coughing. Onset (ago): week(s) (1 week) Location: chest Pain Severity: mild Pain Scale: 1 Quality: aching Consistency: intermittent Improves with: nothing Worsens with: nothing Associated symptoms: Reports: chest pain, cough, shortness of breath - Related Data Home Medications Medication Instructions Recorded Confirmed Alprazolam [Xanax] 1 mg PO TID 03/10/15 09/12/18 Oxygen 1 each .ROUTE AD 03/10/15 09/12/18 Aspirin [Lo-Dose Aspirin EC] 81 mg PO DAILY 10/05/17 09/12/18 Budesonide/Formoterol 80/4.5 2 gm IH BIDR 09/12/18 09/12/18 [Symbicort 80/4.5] Ondansetron ODT [Zofran ODT] 4 mg SL Q6HR PRN 09/12/18 09/12/18 predniSONE [PredniSONE] 10 mg PO DAILY 09/12/18 09/12/18 Previous Rx's Medication Instructions Recorded Omeprazole [PriLOSEC] 40 mg PO DAILY #15 cap 06/07/16 OxyCODONE/APAP 10/325 [Percocet 1 each PO Q4H PRN 5 Days #30 tablet 10/07/17 10/325 MG] Albuterol Neb [Proventil Neb] 2.5 mg IH Q4HR #40 vial.neb 11/24/17 Albuterol Sulfate [Albuterol 2 puff IH Q6H #1 puff 04/25/18 Inhaler] Allergies Allergy/AdvReac Type Severity Reaction Status Date / Time No Known Allergies Allergy Verified 09/12/18 14:03 All systems ED: reviewed and negative except as stated. Review of Systems: As Per HPI Constitutional: Denies: fever, chills, weakness, weight change Eyes: Denies: eye pain, eye discharge, vision change ENT ED: Denies: ear pain, throat pain, dental pain, hearing loss, epistaxis, congestion, dysphagia Cardiovascular: Reports: as per HPI, chest pain. Denies: palpitations, dyspnea on exertion, edema, syncope Respiratory: Reports: as per HPI, cough, dyspnea, wheezes Gastrointestinal: Denies: abdominal pain, nausea, vomiting, diarrhea, constipation, hematemesis, melena, hematochezia Genitourinary: Denies: dysuria, frequency, hematuria, discharge Musculoskeletal: Denies: back pain, neck pain, arthralgia, myalgia Integumentary: Denies: rash, abrasion, lesions Neurological: Denies: headache, weakness, numbness, paresthesias, confusion, abnormal gait, vertigo Psychiatric: Denies: anxiety, depression, suicidal thoughts, homicidal thoughts, auditory hallucinations, visual hallucinations Endocrine: Denies: fatigue Hematological/Lymphatic: Denies: easy bleeding, easy bruising Allergic/Immunologic: Denies: facial swelling, urticaria Past Medical History - Past Medical History Attestation: Yes The following information was validated with the patient. Source: patient, nursing notes reviewed Medical history: Reports: asthma, COPD, GERD Surgical history: Reports: cancer surgery, hysterectomy, other (Excision of bladder tumor, colonoscopy) Psychiatric history: Reports: anxiety, depression SOLAR SALES ADVISOR history: Reports: no SOLAR SALES ADVISOR history - Social History Smoking Status: Former smoker Smokeless Tobacco Status: No Alcohol use: Reports: none Drug use: Reports: none Physical Exam - General Limitations: no limitations General appearance: alert, in no apparent distress - Head Head exam: atraumatic, normocephalic, normal inspection - Eye Eye exam: Present: normal appearance, PERRL, EOMI - ENT ENT exam: normal exam, normal oropharynx, mucous membranes moist - Neck Neck exam: Present: normal inspection, full ROM, trachea midline - Chest Chest inspection: Present: normal inspection, symmetric chest wall rise - Respiratory Respiratory exam: Present: wheezes, prolonged expiratory phase, other (Diminished breath sounds) - Cardiovascular Cardiovascular exam: Present: regular rate, normal rhythm, normal heart sounds - Abdominal Exam Abdominal exam: Present: soft, Non-Tender - Extremities Exam Extremities exam: Present: normal inspection, full ROM. Absent: tenderness, pedal edema - Back Exam Back exam: Present: normal inspection - Neurological Exam Neurological exam: Present: alert, oriented X3 - Psychiatric Psychiatric exam: Present: normal affect, normal mood - Skin Skin exam: Present: warm, dry, intact Course Vital Signs Temperature 98.8 F 09/12/18 14:04 Pulse Rate 107 09/12/18 14:04 Respiratory Rate 24 09/12/18 14:04 Blood Pressure 162/87 09/12/18 14:04 O2 Sat by Pulse Oximetry 98 09/12/18 14:04 Temperature 98.2 F 09/12/18 18:34 Pulse Rate 108 09/12/18 18:34 Respiratory Rate 18 09/12/18 18:34 Blood Pressure 136/68 09/12/18 18:34 O2 Sat by Pulse Oximetry 93 09/12/18 21:33 Oxygen Delivery Oxygen Delivery Nasal Cannula Medical Decision Making - MDM Narrative Medical decision making narrative: I reviewed the patient's medication list Case discussed with Dr. Williamson who is graciously accepted admission - Lab Data Lab results reviewed: Yes I reviewed the patient's lab results. Result diagrams: 09/12/18 14:20 09/12/18 14:20 Lab Results 09/12/18 09/12/18 09/12/18 Range/Units 14:20 14:20 14:20 WBC 9.7 (4.3-11.1) K/mcL RBC 3.87 (3.82-4.97) M/mcL Hgb 11.9 (11.5-15.4) g/dL Hct 37.4 (35.3-44.9) % MCV 96.6 (83.0-100.0) fL MCH 30.7 (28.0-33.3) pg MCHC 31.8 (31.6-35.5) g/dL RDW 13.4 (11.5-14.5) % Plt Count 157 (140-400) K/mcL MPV 10.0 (9.4-12.4) fL Immature Gran % 0.2 (0-4) % Seg Neutrophils % 54.3 % Lymphocytes % 28.3 % Monocytes % 7.5 % Eosinophils % 8.9 % Basophils % 0.8 % Neutrophils # 5.2 (1.6-8.9) K/mcL Lymphocytes # 2.7 (0.6-4.6) K/mcL Monocytes # 0.7 (0.0-1.3) K/mcL Eosinophils # 0.9 H (0.0-0.6) K/mcL Basophils # 0.1 (0.0-0.2) K/mcL PT 13.0 H (9.4-12.1) Seconds INR 1.2 APTT 44.8 H (26.0-36.0) Seconds Sodium 144 (136-145) mEq/L Potassium 3.9 (3.5-5.1) mEq/L Chloride 101 (98-107) mEq/L Carbon Dioxide 38 H (23-29) mEq/L BUN 12 (8-23) mg/dL Creatinine 0.67 (0.60-1.20) mg/dL Est GFR ( Amer) > 60 (> 60) Est GFR (Non-Af Amer) > 60 (> 60) BUN/Creatinine Ratio 18 (6-26) Glucose 109 H (70-105) mg/dL Calculated Osmolality 298 (280-300) Lactic Acid (0.5-2.2) mmol/L Calcium 9.6 (8.6-10.3) mg/dL Total Bilirubin 0.4 (0.3-1.0) mg/dL AST 13 (13-39) Units/L ALT 11 (7-52) Units/L Alkaline Phosphatase 102 (34-104) Units/L Troponin I < 0.03 (< 0.04) ng/mL B-Natriuretic Peptide (Less than 100) pg/mL Serum Total Protein 6.4 (6.4-8.9) g/dL Albumin 3.8 (3.5-5.7) g/dL Globulin 2.6 (2.4-3.5) g/dL Albumin/Globulin Ratio 1.5 (1.1-2.2) 09/12/18 09/12/18 Range/Units 14:20 14:20 WBC (4.3-11.1) K/mcL RBC (3.82-4.97) M/mcL Hgb (11.5-15.4) g/dL Hct (35.3-44.9) % MCV (83.0-100.0) fL MCH (28.0-33.3) pg MCHC (31.6-35.5) g/dL RDW (11.5-14.5) % Plt Count (140-400) K/mcL MPV (9.4-12.4) fL Immature Gran % (0-4) % Seg Neutrophils % % Lymphocytes % % Monocytes % % Eosinophils % % Basophils % % Neutrophils # (1.6-8.9) K/mcL Lymphocytes # (0.6-4.6) K/mcL Monocytes # (0.0-1.3) K/mcL Eosinophils # (0.0-0.6) K/mcL Basophils # (0.0-0.2) K/mcL PT (9.4-12.1) Seconds INR APTT (26.0-36.0) Seconds Sodium (136-145) mEq/L Potassium (3.5-5.1) mEq/L Chloride (98-107) mEq/L Carbon Dioxide (23-29) mEq/L BUN (8-23) mg/dL Creatinine (0.60-1.20) mg/dL Est GFR ( Amer) (> 60) Est GFR (Non-Af Amer) (> 60) BUN/Creatinine Ratio (6-26) Glucose (70-105) mg/dL Calculated Osmolality (280-300) Lactic Acid 1.3 (0.5-2.2) mmol/L Calcium (8.6-10.3) mg/dL Total Bilirubin (0.3-1.0) mg/dL AST (13-39) Units/L ALT (7-52) Units/L Alkaline Phosphatase (34-104) Units/L Troponin I (< 0.04) ng/mL B-Natriuretic Peptide 44 (Less than 100) pg/mL Serum Total Protein (6.4-8.9) g/dL Albumin (3.5-5.7) g/dL Globulin (2.4-3.5) g/dL Albumin/Globulin Ratio (1.1-2.2) - Radiology Data Radiology results reviewed: Yes I reviewed the patient's radiology results. - EKG Data EKG #1 EKG attestation: Yes I reviewed and interpreted this EKG. EKG results narrative: EKG shows sinus rhythm with rate of 106 bpm. MA interval 171 ms. QRS duration 88 ms. QT interval 286 ms QTC 380 ms R axis of [address] elevation ischemic changes are appreciated Interpretation: nonspecific ST-T wave changes
[2018-09-12] MEDS ORDERED: *HR* OxyCODONE/APAP 5/325 TABLET PO ONE (14:45)
[2018-09-12 14:47] LABS: Basophils # 0.1 K/mcL (0.0-0.2); Basophils % 0.8 %; Eosinophils # 0.9 K/mcL (0.0-0.6); Eosinophils % 8.9 %; Hematocrit 37.4 % (35.3-44.9); Hemoglobin 11.9 g/dL (11.5-15.4); Immature Granulocytes % 0.2 % (0-4); Lymphocytes # 2.7 K/mcL (0.6-4.6); Lymphocytes % 28.3 %; Mean Corpuscular HGB Conc 31.8 g/dL (31.6-35.5); Mean Corpuscular Hemoglobin 30.7 pg (28.0-33.3); Mean Corpuscular Volume 96.6 fL (83.0-100.0); Monocytes # 0.7 K/mcL (0.0-1.3); Monocytes % 7.5 %; Neutrophils # 5.2 K/mcL (1.6-8.9); Platelet Count 157 K/mcL (140-400); Red Blood Count 3.87 M/mcL (3.82-4.97); Red Cell Distribution Width 13.4 % (11.5-14.5); Segmented Neutrophils % 54.3 %
[2018-09-12 14:51] LABS: INR 1.2
[2018-09-12 14:54] LABS: Activated Partial Thrombo Time 44.8 Seconds (26.0-36.0)
[2018-09-12 15:04] LABS: Alanine Aminotransferase 11 Units/L (7-52); Albumin 3.8 g/dL (3.5-5.7); Albumin/Globulin Ratio 1.5 (1.1-2.2); Alkaline Phosphatase 102 Units/L (34-104); Aspartate Amino Transferase 13 Units/L (13-39); BUN/Creatinine Ratio 18 (6-26); Bilirubin,Total 0.4 mg/dL (0.3-1.0); Blood Urea Nitrogen 12 mg/dL (8-23); Calcium 9.6 mg/dL (8.6-10.3); Carbon Dioxide 38 mEq/L (23-29); Chloride 101 mEq/L (98-107); Globulin 2.6 g/dL (2.4-3.5); Glucose 109 mg/dL (70-105); Osmolality,Calculated 298 (280-300); Potassium 3.9 mEq/L (3.5-5.1); Sodium 144 mEq/L (136-145); Total Protein 6.4 g/dL (6.4-8.9); Troponin I < 0.03 ng/mL (< 0.04); eGFR For Non-African Americans > 60 (> 60)
[2018-09-12] MEDS ORDERED: Ipratropium/Albuterol Neb 3 ML IH SCH ×2 (15:30→20:00)
[2018-09-12] MEDS ORDERED: Ondansetron ODT 4 MG TAB.RAPDIS SL PRN (16:37)
[2018-09-12] MEDS ORDERED: NON-FORMULARY MEDICATION 1 EACH EACH (Oxygen [Oxygen] 1 EACH) SCH (16:37)
[2018-09-12] MEDS ORDERED: Naloxone 0.4 MG/ML INJ IVP PRN (16:37)
--- NOTE | 2018-09-12 19:00 | Internal Med History&Physical ---
Date of Encounter: 09/12/18 Time of Encounter: 18:30 Assessment and Plan (1) Acute exacerbation of chronic obstructive airways disease Current visit: Yes Status: Chronic She was started on IV Solu-Medrol in emergency room. CT of chest and abdomen be done to further evaluate. (2) Weight loss Current visit: Yes Status: Acute Check TSH and CT of chest and abdomen as per above. (3) DM type 2 (diabetes mellitus, type 2) Current visit: No Status: Chronic Suspect diet controlled with weight loss. Check hemoglobin A1c in a.m. Qualifiers: Diabetes mellitus fpc insulin use: without fpc use Diabetes mellitus complication status: without complication Qualified Code(s): E11.9 - Type 2 diabetes mellitus without complications (4) Compression deformity of vertebra Current visit: No Status: Acute Check vitamin D level in a.m. Internal Medicine - H&P: HPI Chief complaint: Dyspnea Admitted From: Emergency Dept Plans for Post Hospital Care: Home History of present illness: Ms. Newell is a 63 year old female who was sent to emergency room from her PCP office because of increased dyspnea for the past week. She reports a cough with clear mucus production. She denies fevers chills vomiting or diarrhea. She was evaluated in emergency room and was felt to have exacerbation of COPD. She was admitted to [facility] floor for ongoing care needs. Respiratory history is significant for having smoked since age 16 up to 2 packs per day. She had PFTs at [facility] approximately 2007 and was told she had COPD. She wears oxygen 24/7. She has not had DUARTE workup. Chest CT September 2017 showed no pathology worrisome for malignancy. Past Med Surg Social Fam HX - Past Medical History Medical history: asthma, COPD, GERD Additional medical history: HOME 02 Psychiatric history: anxiety, depression - Past Surgical History Surgical History: cancer surgery, hysterectomy, other Additional surgical history: colonoscopy. bladder tumor - Social History Smoking Status: Former smoker Smokeless Tobacco Status: No Alcohol use: none Drug use: none - Family History Daughter Adopted: No Family Member Ethnicity: Non- Living Status: Still Living Hx Family Cardiac Disorders: No Hx Family Respiratory Disorders: Yes (asthma) Hx Family Cancer: No Hx Family GI Disorders: No Hx Family Endocrine Disorder: No Hx Family Neuromuscular Disorders: No Hx Family Neurologic Disorders: No Hx Family HEENT Disorders: No Hx Family Autoimmune Disorders: No Mother Hx Family Respiratory Disorders: Yes (asthma, COPD) Internal Medicine - H&P: Meds Alprazolam [Xanax] 1 mg PO TID 03/10/15 [History] Oxygen 1 each .ROUTE AD 03/10/15 [History] Omeprazole [PriLOSEC] 40 mg PO DAILY #15 cap 06/07/16 [Rx] Aspirin [Lo-Dose Aspirin EC] 81 mg PO DAILY 10/05/17 [History] OxyCODONE/APAP 10/325 [Percocet 10/325 MG] 1 each PO Q4H PRN 5 Days #30 tablet 10/07/17 [Rx] Albuterol Neb [Proventil Neb] 2.5 mg IH Q4HR #40 vial.neb 11/24/17 [Rx] Albuterol Sulfate [Albuterol Inhaler] 2 puff IH Q6H #1 puff 11/24/17 [Rx] Budesonide/Formoterol 80/4.5 [Symbicort 80/4.5] 2 gm IH BIDR 09/12/18 [History] Ondansetron ODT [Zofran ODT] 4 mg SL Q6HR PRN 09/12/18 [History] predniSONE [PredniSONE] 10 mg PO DAILY 09/12/18 [History] Allergy/AdvReac Type Severity Reaction Status Date / Time No Known Allergies Allergy Verified 09/12/18 14:03 All Systems PM: A 10-system review of systems was performed and is negative for pertinent findings except as documented above in the HPI. Review of systems: Review of systems from her September 2017 [facility] hospitalization were reviewed and revised as below Gen.: Her weight has decreased from 69.485 kg on 05/03/2017 to 55.338 kg on admission now. Cardiovascular: She denies hypertension WI heart failure DVT or pulmonary embolus. She does not get chest pain on exertion. She thinks she had a Regadenoson EST approximately 2006 which was unremarkable. Respiratory: As per history of present illness GI: She denies disorders of her liver gallbladder or exocrine pancreas. She had colon polyps diagnosed approximately 2011. : She has had hysterectomy. 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 Endocrine: She has hyperlipidemia. She has DM 2 and her most recent hemoglobin A1c was 6.8% on 03/19/2017. She has had suppressed TSH in the past but that has resolved. Hematology/oncology: She had cervical cancer with curative hysterectomy approximately 1981. She denies other internal malignancies or anemia. Psychiatric: She has anxiety and depression. [place] skeletal: She has chronic low back pain and degenerative disc disease. She had L1 and L4 fractures September 2017. She denies gout or significant arthritis - Constitutional Vitals: Temp Pulse Resp BP Pulse Ox 98.2 F 108 18 136/68 93 09/12/18 18:34 09/12/18 18:34 09/12/18 18:34 09/12/18 18:34 09/12/18 18:34 Exam: Gen.: She is a well-developed lean female sitting in bed who appears slightly dyspneic HEENT: Head is atraumatic and normocephalic. Eyes: EOMI. There is no scleral icterus. Mouth: Mucosa is moist. Neck: Supple and nontender. There is no thyromegaly or adenopathy noted. Heart: Regular without murmurs gallops or ectopics Lungs: She has prolonged expiratory phase and mild diffuse wheezing. No inspiratory crackles or egophony are heard. Abdomen: Soft and nontender. No masses or guarding are noted. Extremities: There is no cyanosis edema or clubbing noted. Dorsalis pedis and posttibial pulses are trace palpable bilaterally. Neurologic: Mental status: She is talkative and a good historian. Cranial nerves: Smile is symmetric. Forehead wrinkles bilaterally. Tongue protrudes midline. EOMI. She is slightly hard of hearing. Motor: There is no pronator drift. Cerebellar: Finger to nose is intact bilaterally. Skin: Warm and dry Internal Med - H&P Results - Labs CBC & Chem 7: 09/12/18 14:20 09/12/18 14:20 Labs: Short CBC 09/12/18 Range/Units 14:20 WBC 9.7 (4.3-11.1) K/mcL Hgb 11.9 (11.5-15.4) g/dL Hct 37.4 (35.3-44.9) % Plt Count 157 (140-400) K/mcL Neutrophils # 5.2 (1.6-8.9) K/mcL BMP 09/12/18 14:20 Sodium 144 Potassium 3.9 Chloride 101 Carbon Dioxide 38 H BUN 12 Creatinine 0.67 Glucose 109 H Calcium 9.6 Cardiac Enzymes 09/12/18 Range/Units 14:20 Troponin I < 0.03 (< 0.04) ng/mL Liver Function 09/12/18 Range/Units 14:20 Total Bilirubin 0.4 (0.3-1.0) mg/dL AST 13 (13-39) Units/L ALT 11 (7-52) Units/L Alkaline Phosphatase 102 (34-104) Units/L Albumin 3.8 (3.5-5.7) g/dL - Impressions ITS Impressions Chest X-Ray 09/12/18 14:09 IMPRESSION: 1. No acute cardiopulmonary disease. D/ / 09/12/2018 14:28:04 Parish Zacarias MD / luz Interpreting Provider: Parish Zacarias MD
[2018-09-12] MEDS: Tiotropium 18 MCG inhalation IH SCH (20:21)
[2018-09-12] MEDS: *HR* OxyCODONE/APAP 10/325 TABLET PO PRN (21:14)
[2018-09-12] MEDS: cefTRIAXone 1,000 MG in Water for inj. (sterile) 20 ML 10 ML IVP SCH (21:14)
[2018-09-12] MEDS: ALPRAZolam 1 MG TABLET PO SCH (21:14)
[2018-09-12] MEDS: methylPREDNISolone 125 MG/2 ML VIAL IVP SCH (21:16)
[2018-09-12] MEDS ORDERED: Budesonide/Formoterol 80/4.5 MDI IH SCH (22:00)
[2018-09-12] MEDS: Budesonide/Formoterol 160/4.5 1 PUFF INH IH SCH (22:19)
[2018-09-13] MEDS: methylPREDNISolone 125 MG/2 ML VIAL IVP SCH ×3 (03:47→19:29)
[2018-09-13] MEDS: *HR* OxyCODONE/APAP 10/325 TABLET PO PRN ×4 (03:51→19:28)
[2018-09-13 06:47] LABS: Basophils % 0.4 %; Hematocrit 32.9 % (35.3-44.9); Hemoglobin 10.6 g/dL (11.5-15.4); Immature Granulocytes % 0.4 % (0-4); Lymphocytes # 0.7 K/mcL (0.6-4.6); Mean Corpuscular HGB Conc 32.2 g/dL (31.6-35.5); Mean Corpuscular Hemoglobin 30.2 pg (28.0-33.3); Mean Corpuscular Volume 93.7 fL (83.0-100.0); Mean Platelet Volume 10.3 fL (9.4-12.4); Monocytes # 0.1 K/mcL (0.0-1.3); Neutrophils # 3.9 K/mcL (1.6-8.9); Platelet Count 137 K/mcL (140-400); Red Blood Count 3.51 M/mcL (3.82-4.97); Red Cell Distribution Width 13.2 % (11.5-14.5); Segmented Neutrophils % 82.2 %
[2018-09-13 07:16] LABS: BUN/Creatinine Ratio 20 (6-26); Blood Urea Nitrogen 13 mg/dL (8-23); Calcium 9.3 mg/dL (8.6-10.3); Carbon Dioxide 33 mEq/L (23-29); Chloride 99 mEq/L (98-107); Glucose 175 mg/dL (70-105); Magnesium 1.8 mg/dL (1.6-2.6); Osmolality,Calculated 292 (280-300); Potassium 4.7 mEq/L (3.5-5.1); Sodium 139 mEq/L (136-145); eGFR For Non-African Americans > 60 (> 60)
[2018-09-13 07:23] LABS: Thyroid Stimulating Hormone 0.36 mcIU/mL (0.340-5.600)
[2018-09-13] MEDS: Aspirin Enteric Coated 81 MG Tablet PO SCH (08:25)
[2018-09-13] MEDS: ALPRAZolam 1 MG TABLET PO SCH ×3 (08:26→20:19)
[2018-09-13 08:47] LABS: Estimated Average Glucose 131 mg/dl; Hemoglobin A1C 6.2 %
[2018-09-13] MEDS ORDERED: MethylPREDNISolone 40 MG/ML VIAL IVP SCH ×2 (09:00)
[2018-09-13] MEDS ORDERED: predniSONE 10 MG TABLET PO SCH (09:00)
[2018-09-13] MEDS: Budesonide/Formoterol 160/4.5 1 PUFF INH IH SCH ×2 (09:22→22:49)
[2018-09-13] MEDS: Tiotropium 18 MCG inhalation IH SCH (09:22)
[2018-09-13] MEDS: Albuterol 2.5 MG/3 ML NEBULIZER IH PRN ×2 (09:22→22:49)
--- NOTE | 2018-09-13 10:09 | Internal Med Progress Note ---
Date of Encounter: 09/13/18 Time of Encounter: 10:02 - Assessment and plan (1) Acute exacerbation of chronic obstructive airways disease Current Visit: Yes Status: Chronic Assessment and plan: September 13. Chest CT showed probable right middle lobe pneumonia. WBC remains normal but left shift present. Start IV Rocephin and Zithromax with lactobacillus. (2) Weight loss Current Visit: Yes Status: Acute Assessment and plan: August 13. TSH was normal. CT scan showed no worrisome pathology indicating malignancy. (3) DM type 2 (diabetes mellitus, type 2) Current Visit: No Status: Chronic Assessment and plan: September 13. Hemoglobin A1c satisfactory at 6.2%. Qualifiers: Diabetes mellitus exterminator termite insulin use: without exterminator termite use Diabetes mellitus complication status: without complication Qualified Code(s): E11.9 - Type 2 diabetes mellitus without complications (4) Compression deformity of vertebra Current Visit: No Status: Acute Assessment and plan: September 13. Vitamin D level pending. - Subjective Interval history: September 13. She has no new complaints and feels slightly better. - Constitutional Vitals: Temp Pulse Resp BP Pulse Ox 98.3 F 88 16 111/64 94 09/13/18 06:37 09/13/18 06:37 09/13/18 09:23 09/13/18 06:37 09/13/18 09:23 Exam: She is sitting in bed and appears in no severe distress. Her affect is bright and cheerful. I reviewed her medications, lab results, and CT report. Internal Medicine: Result - Labs CBC & Chem 7: 09/13/18 05:23 09/13/18 05:23 Labs: Short CBC 09/12/18 09/13/18 Range/Units 14:20 05:23 WBC 9.7 4.7 D (4.3-11.1) K/mcL Hgb 11.9 10.6 L (11.5-15.4) g/dL Hct 37.4 32.9 L (35.3-44.9) % Plt Count 157 137 L (140-400) K/mcL Neutrophils # 5.2 3.9 (1.6-8.9) K/mcL BMP 09/12/18 09/13/18 14:20 05:23 Sodium 144 139 Potassium 3.9 4.7 Chloride 101 99 Carbon Dioxide 38 H 33 H BUN 12 13 Creatinine 0.67 0.65 Glucose 109 H 175 H Calcium 9.6 9.3 Cardiac Enzymes 09/12/18 Range/Units 14:20 Troponin I < 0.03 (< 0.04) ng/mL Liver Function 09/12/18 Range/Units 14:20 Total Bilirubin 0.4 (0.3-1.0) mg/dL AST 13 (13-39) Units/L ALT 11 (7-52) Units/L Alkaline Phosphatase 102 (34-104) Units/L Albumin 3.8 (3.5-5.7) g/dL - ABG Interpretation ABG results: PT/INR, D-dimer PT 13.0 Seconds (9.4-12.1) H 09/12/18 14:20 - Impressions Impressions Chest X-Ray 09/12/18 14:09 IMPRESSION: 1. No acute cardiopulmonary disease. D/ / 09/12/2018 14:28:04 Parish Zacarias MD / luz Interpreting Provider: Parish Zacarias MD Abdomen/Pelvis CT 09/12/18 18:55 IMPRESSION: 1. A few patchy alveolar densities are demonstrated lateral right middle lobe which can be seen with pneumonitis. 2. Calcific atherosclerosis infrarenal abdominal aorta, thoracic aorta and coronary arteries. 3. The infrarenal abdominal aorta measures no greater than 25 mm diameter, borderline ectatic. I am unable to reproduce the previously given measurement of 29 x 31 mm on today's or previous study and consider it invalid. Repeat CT imaging may be considered in about 5 years*. 4. Hepatic morphologic changes typical of that seen with cirrhosis. Portal vein is at the upper limits of normal for size. 5. Changes of emphysema predominate in the upper lungs. ____ *Managing Abdominal Aortic Aneurysms 2.6-2.9 cm: Every 5 years* 3.0-3.4 cm: Every 3 years. 3.5-3.9 cm: Every 1 year. 4.0-4.4 cm: Every 1 year. Recommend vascular consultation. 4.5-5.4 cm: Every 6 months. Recommend vascular consultation. Greater than or equal to 5.5 cm: Referral to vascular surgeon. *For abdominal aortas with maximum diameter of 2.6-2.9 cm meeting criteria for AAA (>50% of proximal normal segment). Reference: J Vasc Surg. 2009 May;50(4 Suppl):S2-49 D/ / Savage Carter / Savage Carter Interpreting Provider: Savage Carter Chest CT 09/12/18 18:55 IMPRESSION: 1. A few patchy alveolar densities are demonstrated lateral right middle lobe which can be seen with pneumonitis. 2. Calcific atherosclerosis infrarenal abdominal aorta, thoracic aorta and coronary arteries. 3. The infrarenal abdominal aorta measures no greater than 25 mm diameter, borderline ectatic. I am unable to reproduce the previously given measurement of 29 x 31 mm on today's or previous study and consider it invalid. Repeat CT imaging may be considered in about 5 years*. 4. Hepatic morphologic changes typical of that seen with cirrhosis. Portal vein is at the upper limits of normal for size. 5. Changes of emphysema predominate in the upper lungs. ____ *Managing Abdominal Aortic Aneurysms 2.6-2.9 cm: Every 5 years* 3.0-3.4 cm: Every 3 years. 3.5-3.9 cm: Every 1 year. 4.0-4.4 cm: Every 1 year. Recommend vascular consultation. 4.5-5.4 cm: Every 6 months. Recommend vascular consultation. Greater than or equal to 5.5 cm: Referral to vascular surgeon. *For abdominal aortas with maximum diameter of 2.6-2.9 cm meeting criteria for AAA (>50% of proximal normal segment). Reference: J Vasc Surg. 2009 May;50(4 Suppl):S2-49 D/ / Savage Carter / Savage Carter Interpreting Provider: Savage Carter Consult Discharge Plan - Plan Referrals: NONE,PCP [Primary Care Provider] - 1 week
[2018-09-13] MEDS: Azithromycin 500 MG in D5% in Water 250 ML IVPB SCH (12:03)
[2018-09-13] MEDS: cefTRIAXone 1,000 MG in Water for inj. (sterile) 20 ML 10 ML IVP SCH (19:29)
[2018-09-13] MEDS: Lactobacillus 1 EACH CAP.SPRINK PO SCH (20:19)
--- NOTE | 2018-09-13 20:52 | Electrocardiograph Report ---
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
[2018-09-14] MEDS: *HR* OxyCODONE/APAP 10/325 TABLET PO PRN ×3 (00:23→13:40)
[2018-09-14] MEDS: methylPREDNISolone 125 MG/2 ML VIAL IVP SCH ×2 (04:19→13:41)
[2018-09-14] MEDS: Lactobacillus 1 EACH CAP.SPRINK PO SCH (07:49)
[2018-09-14] MEDS: Aspirin Enteric Coated 81 MG Tablet PO SCH (07:49)
[2018-09-14] MEDS: ALPRAZolam 1 MG TABLET PO SCH (07:50)
[2018-09-14] MEDS: Tiotropium 18 MCG inhalation IH SCH (08:28)
[2018-09-14] MEDS: Albuterol 2.5 MG/3 ML NEBULIZER IH PRN (08:28)
[2018-09-14] MEDS: Budesonide/Formoterol 160/4.5 1 PUFF INH IH SCH (08:28)
[2018-09-14 11:03] VITALS: BP 130/69
--- NOTE | 2018-09-14 11:35 | Discharge Summary ---
Orders not resulted at time of discharge: Pending orders 09/12/18 14:20 Culture,Blood [BC] Stat Date of Encounter: 09/14/18 Time of Encounter: 11:25 - Discharge Diagnosis (1) Acute exacerbation of chronic obstructive airways disease Priority: Primary Status: Chronic (2) Weight loss Priority: Secondary Status: Acute (3) DM type 2 (diabetes mellitus, type 2) Priority: Secondary Status: Chronic Qualifiers: Diabetes mellitus fci insulin use: without service mechanic use Diabetes mellitus complication status: without complication Qualified Code(s): E11.9 - Type 2 diabetes mellitus without complications (4) Compression deformity of vertebra Priority: Secondary Status: Acute Hospital course: Ms. Newlel is a 63 year old female who was sent to emergency room from her PCP office because of increased dyspnea for the past week. She reports a cough with clear mucus production. She denies fevers chills vomiting or diarrhea. She was evaluated in emergency room and was felt to have exacerbation of COPD. She was admitted to [facility] floor for ongoing care needs. Initial orders were written by the emergency room physician. I saw her on September 12 and performed the history and physical. She was given IV Solu- Medrol in emergency room. CT of chest and abdomen was ordered to further evaluate her weight loss and dyspnea. The CT showed a few patchy alveolar densities in the lateral right middle lobe consistent with pneumonitis. There was no evidence of aortic aneurysm and the radiologist considered the previous abdominal CT report invalid and recommended repeat CT be considered in 5 years. There was hepatic morphologic changes typical of cirrhosis. No pathology worrisome for malignancy was seen. She was started on Rocephin and Zithromax and had clinical improvement. She will continue with oral antibiotic and probiotic for 4 additional days at discharge. Vitamin D level returned significantly decreased at 10. She will be started on vitamin D supplement. TSH returned normal at 0.360. Hemoglobin decreased to 10.6 on day of discharge. Her PCP can monitor labs. When I saw her September 14 she felt improved. She requested to return to a SNF at discharge. She was approved for transfer to [facility] [place] in [place] on September 14. - Time Spent with Patient Total time spent providing and/or coordinating discharge services: - Discharge Medications Prescriptions: Cefuroxime PO [Ceftin] 500 mg PO Q12HR 4 Days tablet Azithromycin [Zithromax] 250 mg PO DAILY 4 Days tablet Lactobacillus [Culturelle] 1 each PO BID 4 Days cap.sprink Home Medications: Alprazolam [Xanax] 1 mg PO TID 03/10/15 [History] Oxygen 1 each .ROUTE AD 03/10/15 [History] Omeprazole [PriLOSEC] 40 mg PO DAILY #15 cap 06/07/16 [Rx] Aspirin [Lo-Dose Aspirin EC] 81 mg PO DAILY 10/05/17 [History] OxyCODONE/APAP 10/325 [Percocet 10/325 MG] 1 each PO Q4H PRN 5 Days #30 tablet 10/07/17 [Rx] Albuterol Neb [Proventil Neb] 2.5 mg IH Q4HR #40 vial.neb 11/24/17 [Rx] Albuterol Sulfate [Albuterol Inhaler] 2 puff IH Q6H #1 puff 11/24/17 [Rx] Budesonide/Formoterol 80/4.5 [Symbicort 80/4.5] 2 gm IH BIDR 09/12/18 [History] Ondansetron ODT [Zofran ODT] 4 mg SL Q6HR PRN 09/12/18 [History] predniSONE [PredniSONE] 10 mg PO DAILY 09/12/18 [History] Azithromycin [Zithromax] 250 mg PO DAILY 4 Days tablet 09/14/18 [Rx] Cefuroxime PO [Ceftin] 500 mg PO Q12HR 4 Days tablet 09/14/18 [Rx] Lactobacillus [Culturelle] 1 each PO BID 4 Days cap.sprink 09/14/18 [Rx] Allergies/Adverse Reactions: Allergy/AdvReac Type Severity Reaction Status Date / Time No Known Allergies Allergy Verified 09/12/18 14:03 Date of admission: 09/12/18 15:28 Primary care physician: Alfred Cohen M.D. Consults: 09/13/18 14:05 Consult to Occupational Therapy [CONS] Routine Comment: Evaluate, develop and implement POC Reason for Consult: Weakness Does patient have active BEDREST order?: No Is patient medically & hemodynamically stable?: Yes Patient assessed for mobility or mobilized this visit?: Yes Consult to Physical Therapy [CONS] Routine Comment: Evaluate, develop and implement POC Reason for Consult: Weakness Does patient have active BEDREST order?: No Is patient medically & hemodynamically stable?: Yes Patient assessed for mobility or mobilized this visit?: Yes - Constitutional Vitals: Temp Pulse Resp BP Pulse Ox 98.0 F 94 14 130/69 96 09/14/18 11:00 09/14/18 11:00 09/14/18 11:00 09/14/18 11:00 09/14/18 11:00 - Patient Status Disposition: Transfer SNF Condition: Good - Discharge Instructions Follow Up With: NONE,PCP [Primary Care Provider] - 1 week - Diet and Activity Activity: wear oxygen at all times Diet: regular diet
--- NOTE | 2018-09-14 11:47 | Physician Discharge Referral ---
ExtendedCare Referral Info Transfer To: [facility] Provider in Charge: [facility] Provider in Charge after Transfer: PCP - Diagnosis (1) Acute exacerbation of chronic obstructive airways disease Priority: Primary Status: Chronic (2) Weight loss Priority: Secondary Status: Acute (3) DM type 2 (diabetes mellitus, type 2) Priority: Secondary Status: Chronic (4) Compression deformity of vertebra Priority: Secondary Status: Acute Prognosis: Fair Aware of Diagnosis: Patient, Family Aware of Prognosis: Patient, Family - Transfer Medications Prescriptions: Cefuroxime PO [Ceftin] 500 mg PO Q12HR 4 Days tablet Azithromycin [Zithromax] 250 mg PO DAILY 4 Days tablet Cholecalciferol (D-3) [Vitamin D] 2,000 unit PO DAILY 365 Days tablet Lactobacillus [Culturelle] 1 each PO BID 4 Days cap.sprink Home Medications: Alprazolam [Xanax] 1 mg PO TID 03/10/15 [History] Oxygen 1 each .ROUTE AD 03/10/15 [History] Omeprazole [PriLOSEC] 40 mg PO DAILY #15 cap 06/07/16 [Rx] Aspirin [Lo-Dose Aspirin EC] 81 mg PO DAILY 10/05/17 [History] OxyCODONE/APAP 10/325 [Percocet 10/325 MG] 1 each PO Q4H PRN 5 Days #30 tablet 10/07/17 [Rx] Albuterol Neb [Proventil Neb] 2.5 mg IH Q4HR #40 vial.neb 11/24/17 [Rx] Albuterol Sulfate [Albuterol Inhaler] 2 puff IH Q6H #1 puff 11/24/17 [Rx] Budesonide/Formoterol 80/4.5 [Symbicort 80/4.5] 2 gm IH BIDR 09/12/18 [History] Ondansetron ODT [Zofran ODT] 4 mg SL Q6HR PRN 09/12/18 [History] predniSONE [PredniSONE] 10 mg PO DAILY 09/12/18 [History] Azithromycin [Zithromax] 250 mg PO DAILY 4 Days tablet 09/14/18 [Rx] Cefuroxime PO [Ceftin] 500 mg PO Q12HR 4 Days tablet 09/14/18 [Rx] Cholecalciferol (D-3) [Vitamin D] 2,000 unit PO DAILY 365 Days tablet 09/14/18 [Rx] Lactobacillus [Culturelle] 1 each PO BID 4 Days cap.sprink 09/14/18 [Rx] Allergies/Adverse Reactions: Allergy/AdvReac Type Severity Reaction Status Date / Time No Known Allergies Allergy Verified 09/12/18 14:03 - Respiratory Orders Oxygen / L per min (2 L/m by nasal cannula 22/02) Smoking Cessation: Smoking cessation has been advised. For more information, call the [place] Tobacco Quit Line at 2-898-IDOG-NOW. - Mobility Orders Ambulate - Rehabiliation Orders Rehab Potential: Fair Rehab Orders: Evaluation for Physical Therapy, Evaluation for Occupational Therapy - Diet Orders Regular CERTIFICATION: I certify that the transfer of the above named patient to an Extended Care Facility is necessary for the continuing treatment of the diagnosis listed. The above information is true and accurate reflection of patient's current condition. Confidential - Redisclosure prohibited without a patient's written consent.
[2018-09-14] MEDS: Azithromycin 500 MG in D5% in Water 250 ML IVPB SCH (13:41)
== END 2018-09-14 15:10 ==
LOC: INPPIK 14:02 → EMEROOPIK 14:02 → INPPIK 16:03
PROVIDERS: ADMIT Internal Medicine; ATTEND Internal Medicine